=== PATIENT | male | born 1940 | race Caucasian/White ===

== ENCOUNTER 2018-07-16 11:02 | Inpatient (IN) ==
[2018-07-16] MEDS ORDERED: SODIUM CHLORIDE 0.9% 500 ML IV SCH (11:30)
[2018-07-16 11:41] LABS: Hematocrit (blood only) 25.6 % (42-52); Hemoglobin 7.7 g/dL (14.0-18.0); Mean Corpuscular Hgb Conc 30.1 g/dL (32-36); Mean Corpuscular Volume 104.9 fL (80-100); Mean Platelet Volume 9.8 fL (7.4-10.4); Nucleated RBC # (auto) 0.02 K/uL (0-0); Nucleated RBC % (auto) 0.1 %; Platelet Count 159 K/uL (130-400); RDW Coefficient of Variation 25.1 % (11.5-14.5); RDW Standard Deviation 94.9 fL (36.4-46.3); Red Blood Count 2.44 M/uL (4.7-6.1); White Blood Count 21.98 K/uL (4.8-10.8)
--- NOTE | 2018-07-16 11:48 | XRay Report ---
XR chest 1V portable CLINICAL HISTORY: 77 years-old Male presenting with weakness. TECHNIQUE: Portable upright AP view of the chest was obtained. COMPARISON: None. FINDINGS: Atherosclerosis of the aortic arch. Cardiac silhouette enlarged. Architectural distortion of the lung bases, right greater than left. Elevation of the right hemidiaphragm may be present. Extensive opaci ty at the right lung base with a suspected loculated small right pleural effusion. No large pneumotho rax. Prominent skin folds evident. Multiple right lateral rib fractures. Partially visualized lumbar fusion hardware. Upper abdomen normal. IMPRESSION: 1. Infiltrate at the right lung base with loculated right pleural effusion. Given the architectural distortion of the lung bases, right greater than left, this may be chronic. However, superimposed inf ection cannot be excluded. 2. Multiple right lateral rib fractures. Correlate for point tenderness to assess for acuity. Given the presence of these fractures, an acute setting the right pleural abnormality may represent extrapl eural hematoma or hemothorax. Electronically signed by: Efren Milton M.D. 07/16/2018 11:47 AM
[2018-07-16 11:58] LABS: Albumin Level 2.4 gm/dl (3.4-5.0); BUN Creatinine Ratio 22.9 (10-20); Calcium 8.6 mg/dl (8.5-10.1); Creatinine Clr Calc Pharmacy 28.4 ml/min; Est GFR (African American) 31.6; Est GFR (Non-African American) 27.3; Potassium 4.5 mmol/L (3.5-5.1)
--- NOTE | 2018-07-16 12:08 | CT Scan Report ---
CT head/brain wo con CT DOSE: 921.40 mGy.cm HISTORY: Mental status change fall TECHNIQUE: Multiaxial CT images of the head were performed without the use of intravenous contrast. A dose lowering technique was utilized adhering to the principles of ALARA. Comparison: 06/03/2018 Findings: The paranasal sinuses and mastoid air cells are clear. The calvarium and skull base are int act. The ventricles and sulci are within normal limits. There is no mass, hematoma, midline shift, or acute infarct. Age-related atrophy Impression: No acute intracranial abnormality. Age-related atrophy The above report was generated using voice recognition software. It may contain grammatical, syntax or spelling errors. Electronically signed by: Kentrell Frances M.D. 07/16/2018 12:07 PM
[2018-07-16 12:16] LABS: Albumin Globulin Ratio 0.7 (0.9-2); Bilirubin,Total 0.5 mg/dl (0.2-1); Globulin 3.5 gm/dl (2.5-4.0); Total Protein 5.9 gm/dl (6.4-8.2)
[2018-07-16 12:27] LABS: Anisocytosis Present; Immature Granulocytes % (auto) 0.5 %; Lymphocytes # (auto) 0.36 K/uL (1.2-3.4); Lymphocytes % (auto) 1.6 %; Macrocytosis Present; Monocytes # (auto) 0.91 K/uL (0.11-0.59); Monocytes % (auto) 4.1 %; Neutrophils # (auto) 20.61 K/uL (1.4-6.5); Neutrophils % (auto) 93.8 %; Spherocytes 1+
[2018-07-16 12:30] LABS: T4 Free Thyroxine 1.09 ng/dl (0.8-1.6)
[2018-07-16 12:49] LABS: Troponin I 0.059 ng/ml (0-0.045)
--- NOTE | 2018-07-16 14:21 | CT Scan Report ---
CT chest wo con CT DOSE: 236.89 mGy.cm CLINICAL HISTORY: 77 years-old Male with fall ? hematoma and rib fractures. Acute right-sided rib pa in status post fall with associated rib fractures. TECHNIQUE: Multiaxial CT images of the chest were performed without contrast. A dose lowering techni que was utilized adhering to the principles of ALARA. COMPARISON: Chest radiograph of same day FINDINGS: Study is limited without the use of contrast. A large thyroid nodule. Prominent paratrachea l lymph nodes measuring up to 9 mm, possibly physiologic. Moderate cardiomegaly. Coronary arterial an d aortic annular calcifications. Fusiform dilation about the ascending thoracic aorta, 4.2 x 4.2 cm. Calcification the thoracic aorta and proximal great vessels. Dilation of the main pulmonary artery me asures up to 3.4 cm transversely. Trace left and small to moderate right pleural effusions. The right-sided pleural fluid is predominan tly simple and only minimally loculated. There is a small right-sided pneumothorax with pleural separ ation of 9 mm at the apex. Pleural separation is also noted about the medial right lung and right betty g base. Left diaphragmatic elevation. Mixed bibasilar groundglass and consolidative opacities. Tree-i n-bud nodules of the left lung base. Mild emphysema. There are scattered nodular foci about the lung bases up to 6 mm within the lingula. Areas of subpleural reticulation of the right lung base with sub pleural consolidation containing calcifications noted within the right lower lobe measuring up to 3.9 x 2.3 cm suggestive of probable pleural parenchymal scarring with round atelectasis. 3 mm solid nodu le noted on the right on image 188 series 4. Central airways appear patent. Small volume of abdominal ascites. Diffuse body wall edema. Degenerative changes of the shoulders and spine. Multiple healed remote right-sided rib fractures. There is no acute fracture identified. 30% anterior endplate compression deformity of the T11 vertebral body without retropulsion, age-indetermi milton. Fusion hardware at T12 and L1 noted. Chronic appearing displaced mid sternal fracture. IMPRESSION: 1. Small right-sided pneumothorax of unknown etiology. 2. Multiple healed remote right-sided rib fractures with chronic appearing mid sternal fracture. No a cute rib fracture identified. 3. Fusiform dilation about the ascending thoracic aorta, 4.2 x 4.2 cm. 4. Trace left and small to moderate right pleural effusions. 5. Pleural parenchymal scarring of the right lung base with areas of suggested round atelectasis. Add itional bibasilar opacities are suggestive of probable pneumonitis with bronchiolitis. 6. There are a few scattered nodular foci as above measuring up to 6 mm within the lingula. 7. Mild emphysema. 8. Age-indeterminate 30% anterior endplate compression deformity of T11, likely chronic. 9. Additional findings as above. Please refer to below summary of Fleischner criteria recommendations for follow-up of incidental CT n odules ([place], Guidelines for management of small pulmonary nodules detected on CT scans: A sta tement from the Fleischner Society, Radiology 237: [phone].) SOLID NODULES Multiple nodules size: <6 mm * Low risk patients: no routine follow-up * high risk patients: optional CT at 12 months Note: newly detected indeterminate nodule in persons 35 years of age or older. * Low risk patients: minimal or absent history of smoking and/or other known risk factors * high risk patients: history of smoking or of other known risk factors (e.g. first degree relative with lung cancer, or exposure to asbestos, radon, uranium) * if a nodule up to 8 mm is partly solid or is ground glass further follow-up is required after 24 m onths to exclude possible slow growing adenocarcinoma (DEVIKA) The above report was generated using voice recognition software. It may contain grammatical, syntax o r spelling errors. Electronically signed by: Ruben Luna M.D. 07/16/2018 2:20 PM
[2018-07-16] MEDS ORDERED: cefTRIAXone SODIUM 1,000 MG/50 ML BAG IV STA (14:26)
[2018-07-16] MEDS ORDERED: LEVOFLOXACIN/D5W 750 MG/150 ML BAG IV SCH (14:30)
--- NOTE | 2018-07-16 14:54 | Emergency Department Note ---
Entered by Sania Howard acting as a scribe for History of Present Illness General Chief complaint: Illness Stated complaint: ILLNESS Source: patient History of Present Illness Provider complaint: fatigue, weakness Onset (ago): day(s) (recently) Location: left and right Pain Consistency: + constant Quality: + other (fatigue, weakness) Associated symptoms: + other (confusion, weight loss, reduced leg swelling. Denies: headache, chest pain, shortness of breath, cough, runny nose, abdominal pain, nausea, vomiting, diarrhea, dizziness, lightheadedness.) The patient is a 77 year old male who presents to the Emergency Room with complaints of constant fatigue and weakness beginning recently. He reports his home health nurse felt he needed to be seen in the ED as his vitals were "too low to get a reading." The patient denies headache, chest pain, shortness of breath, cough, runny nose, abdominal pain, nausea, vomiting, diarrhea, dizziness, or lightheadedness. He reports he just wants to go to sleep. His notes the patient has been confused recently, and was singing to himself and mumbling this morning. The patient has a history of heart failure and his reports he has been falling recently. She notes he has had weight loss and reduced leg swelling following an increase in his Lasix dose a couple weeks ago. The patient was taken off Coumadin a few months ago. Patient does admit to multiple falls with his last one being about 2 weeks ago where he broke several ribs in the right. Home Medications Home Medications Medication Instructions Recorded Confirmed Type Artificial Tears (PF) 1 - 2 drp OPHTHALMIC (EYE) UD 03/30/18 07/16/18 History aspirin [Aspirin Low Dose] 81 mg PO QAM 03/30/18 07/16/18 History atenolol 75 mg PO QAM 03/30/18 07/16/18 History calcitriol 0.25 mcg PO MONTHUR 03/30/18 07/16/18 History cholecalciferol (vitamin D3) 1,000 unit PO DAILY 03/30/18 07/16/18 History digoxin 62.5 mcg PO QAM 03/30/18 07/16/18 History levothyroxine 75 mcg PO QAM 03/30/18 07/16/18 History lisinopril 40 mg PO QAM 03/30/18 07/16/18 History methadone 10 mg PO Q6H PRN 03/30/18 07/16/18 History paroxetine HCl 30 mg PO QAM 03/30/18 07/16/18 History ranitidine HCl 150 mg PO QAM 03/30/18 07/16/18 History simvastatin 40 mg PO DAILY 03/30/18 07/16/18 History potassium chloride 10 meq PO DAILY #0 tab 04/01/18 07/16/18 Rx furosemide 80 mg PO QAM 07/16/18 07/16/18 History Allergies Allergy/AdvReac Type Severity Reaction Status Date / Time adhesive Allergy Unknown RASH AND Verified 07/16/18 11:44 BLISTER No Known Drug Allergies Allergy Unknown . Verified 07/16/18 11:44 Past Med/Surg History Medical History Hypertension History of pulmonary embolism A-fib Right-sided heart failure CAD (coronary artery disease) DVT (deep venous thrombosis) (Resolved) Bone cancer (Resolved) Anticoagulant long-term use (Chronic) Family History Other No significant family history Social History Preferred Language: Welsh Beliefs That Will Affect Care: None Current Living Situation: Spouse Feels Safe at Home: Yes Smoking Status: Never smoker Hx Alcohol Use: No Hx Substance Use: No Review of Systems See HPI for pertinent positives & negatives. and A total of 10 systems reviewed and were otherwise negative Physical Exam Vital Signs Vital Signs - 24 hr 07/16/18 11:10 07/16/18 11:24 07/16/18 12:02 Temperature 36.4 C L Temperature Source Oral Sepsis Recent Fever Within 48 Hours No Sepsis New/Unexplained Change in Mental Status No Sepsis Action Taken by Nursing No Action Required Pulse Rate 66 49 L Pulse Rate [Apical] 54 L Pulse Rate from SpO2 Sensor Respiratory Rate 20 16 12 Respiratory Effort / Characteristics Spontaneous Blood Pressure 87/52 L 107/52 L Blood Pressure [Left Arm] 103/59 L Blood Pressure Mean 63 70 Blood Pressure Mean [Left Arm] 73 Pulse Oximetry 99 Oxygen Delivery Method Room Air 07/16/18 12:16 07/16/18 12:24 07/16/18 12:30 Temperature Temperature Source Sepsis Recent Fever Within 48 Hours Sepsis New/Unexplained Change in Mental Status Sepsis Action Taken by Nursing Pulse Rate 50 L 49 L 54 L Pulse Rate [Apical] Pulse Rate from SpO2 Sensor Respiratory Rate 10 L 9 L 19 Respiratory Effort / Characteristics Blood Pressure 107/52 L 104/53 L 111/60 Blood Pressure [Left Arm] Blood Pressure Mean 70 70 77 Blood Pressure Mean [Left Arm] Pulse Oximetry Oxygen Delivery Method 07/16/18 12:33 07/16/18 13:00 07/16/18 13:30 Temperature Temperature Source Sepsis Recent Fever Within 48 Hours Sepsis New/Unexplained Change in Mental Status Sepsis Action Taken by Nursing Pulse Rate 49 L 45 L Pulse Rate [Apical] Pulse Rate from SpO2 Sensor 63 57 L Respiratory Rate 11 L 19 Respiratory Effort / Characteristics Blood Pressure 96/62 L 100/59 L Blood Pressure [Left Arm] Blood Pressure Mean 73 72 Blood Pressure Mean [Left Arm] Pulse Oximetry 98 99 94 Oxygen Delivery Method Room Air GENERAL: Cachectic, sitting up in bed, chronically ill-appearing, disheveled EYE EXAM: normal conjunctiva. OROPHARYNX: no exudate, no erythema, lips, buccal mucosa, and tongue normal and mucous membranes are moist NECK: supple, no nuchal rigidity, no adenopathy, non-tender LUNGS: Clear to auscultation. Normal chest wall mechanics HEART: no murmurs, S1 normal and S2 normal ABDOMEN: abdomen soft, non-tender, normo-active bowel, sounds, no masses, no janie ound or guarding. BACK: Back is symmetrical on inspection and there is no deformity, no midline tenderness, no CVA tenderness. SKIN: Multiple bruises on upper and lower extremities UPPER EXTREMITIES: upper extremities are grossly normal. LOWER EXTREMITIES: No pitting edema. NEURO EXAM: Normal sensorium, cranial nerves II-XII grossly intact, normal speech, no gross weakness of arms, no gross weakness of legs. Course ED COURSE: Vital signs were reviewed and showed hypotension. The patients medical record was reviewed The above diagnostic studies were performed and reviewed. ED treatments and interventions as stated above. 1115: The patient was evaluated in room B4B. A complete history and physical examination was performed. 1360: I reevaluated the patient and discussed his test results. His reports the patient fell two weeks ago and broke multiple ribs. 1431: I reviewed the patient's case with Leila Panda PA-C, [facility]. She will evaluate the patient for further management. 1436: I discussed the patient's case with Dr. Valle, [facility] thoracic surgery. 1437: Upon reevaluation, the patient is resting. I discussed my findings with the patient and his and they understand and agree with the treatment plan. Based on the patients age, coexisting illnesses, exam and lab findings the decision to treat as an inpatient was made. The patient remained stable while under my care. The patient will be evaluated for further management. Consultations Consultation #1: Leila Panda PA-C, [facility] Time: 14:31 Consultation #2: Dr. Valle, [facility] thoracic surgery. Time: 14:36 Administered Medications Discontinued Medications Sodium Chloride (Nss) 500 mls @ 999 mls/hr IV .Q31M TAMRA Stop: 07/16/18 12:00 Last Infusion: 07/16/18 12:10 Dose: 0 mls/hr Documented by: [id number] Admin: 07/16/18 11:39 Dose: 999 mls/hr Documented by: [id number] Medical Decision Making Differential Diagnosis Differential diagnosis includes but is not limited to dehydration, stroke, anemia, hypoglycemia, hyponatremia, hypernatremia, urinary tract infection, pneumonia, bronchitis, sepsis, gastroenteritis, additional abdominal pathology, metabolic abnormalities and infections. Medical Records Attestation: I reviewed the patient's medical records. Home Medications Current Medication List: was personally reviewed by me Laboratory Data Attestation: I reviewed the patient's lab results. Result diagrams: 07/16/18 11:30 07/16/18 11:30 Lab Results 07/16/18 07/16/18 Range/Units 11:30 11:30 WBC 21.98 H (4.8-10.8) K/uL RBC 2.44 L (4.7-6.1) M/uL Hgb 7.7 L (14.0-18.0) g/dL Hct 25.6 L (42-52) % MCV 104.9 H (80-100) fL MCH 31.6 (25-34) pg MCHC 30.1 L (32-36) g/dL RDW Std Deviation 94.9 H (36.4-46.3) fL RDW Coeff of Pedro Luis 25.1 H (11.5-14.5) % Plt Count 159 (130-400) K/uL MPV 9.8 (7.4-10.4) fL Immature Gran % (Auto) 0.5 % Neut % (Auto) 93.8 % Lymph % (Auto) 1.6 % Lyman % (Auto) 4.1 % Eos % (Auto) 0.0 % Baso % (Auto) 0.0 % Immature Gran # (Auto) 0.10 H (0.00-0.02) K/uL Neut # (Auto) 20.61 H (1.4-6.5) K/uL Lymph # (Auto) 0.36 L (1.2-3.4) K/uL Lyman # (Auto) 0.91 H (0.11-0.59) K/uL Eos # (Auto) 0.00 (0-0.5) K/uL Baso # (Auto) 0.00 (0-0.2) K/uL Absolute Nucleated RBC 0.02 H (0-0) K/uL Nucleated RBC % (auto) 0.1 % Anisocytosis Present Macrocytosis Present Spherocytes 1+ Sodium 146 H (136-145) mmol/L Potassium 4.5 (3.5-5.1) mmol/L Chloride 108 H (98-107) mmol/L Carbon Dioxide 32 (21-32) mmol/L Anion Gap 6.0 (3-11) BUN 52 H (7-18) mg/dl Creatinine 2.25 H (0.6-1.4) mg/dl Est Cr Clr Drug Dosing 28.4 ml/min Est GFR ( Amer) 31.6 Est GFR (Non-Af Amer) 27.3 BUN/Creatinine Ratio 22.9 H (10-20) Glucose 89 (70-99) mg/dl Calcium 8.6 (8.5-10.1) mg/dl Total Bilirubin 0.5 (0.2-1) mg/dl AST 40 H (15-37) U/L ALT 29 (12-78) U/L Alkaline Phosphatase 161 H (45-117) U/L Total Creatine Kinase 118 (39-308) U/L Troponin I 0.059 H* (0-0.045) ng/ml Total Protein 5.9 L (6.4-8.2) gm/dl Albumin 2.4 L (3.4-5.0) gm/dl Globulin 3.5 (2.5-4.0) gm/dl Albumin/Globulin Ratio 0.7 L (0.9-2) TSH 4.630 H (0.300-4.500) uIu/ml Free T4 1.09 (0.8-1.6) ng/dl Imaging Data Radiologist's Impression: Radiology results as stated below per my review and the radiologist's interpretation: CT chest wo con CT DOSE: 236.89 mGy.cm CLINICAL HISTORY: 77 years-old Male with fall ? hematoma and rib fractures. Acute right-sided rib pain status post fall with associated rib fractures. TECHNIQUE: Multiaxial CT images of the chest were performed without contrast. A dose lowering technique was utilized adhering to the principles of ALARA. COMPARISON: Chest radiograph of same day FINDINGS: Study is limited without the use of contrast. A large thyroid nodule. Prominent paratracheal lymph nodes measuring up to 9 mm, possibly physiologic. Moderate cardiomegaly. Coronary arterial and aortic annular calcifications. Fusiform dilation about the ascending thoracic aorta, 4.2 x 4.2 cm. Calcification the thoracic aorta and proximal great vessels. Dilation of the main pulmonary artery measures up to 3.4 cm transversely. Trace left and small to moderate right pleural effusions. The right-sided pleural fluid is predominantly simple and only minimally loculated. There is a small right-sided pneumothorax with pleural separation of 9 mm at the apex. Pl eural separation is also noted about the medial right lung and right lung base. Left diaphragmatic elevation. Mixed bibasilar groundglass and consolidative opacities. Tree-in-bud nodules of the left lung base. Mild emphysema. There are scattered nodular foci about the lung bases up to 6 mm within the lingula. Areas of subpleural reticulation of the right lung base with subpleural consolidation containing calcifications noted within the right lower lobe measuring up to 3.9 x 2.3 cm suggestive of probable pleural parenchymal scarring with round atelectasis. 3 mm solid nodule noted on the right on image 188 series 4. Central airways appear patent. Small volume of abdominal ascites. Diffuse body wall edema. Degenerative changes of the shoulders and spine. Multiple healed remote right-sided rib fractures. There is no acute fracture identified. 30% anterior endplate compression deformity of the T11 vertebral body without retropulsion, age-indeterminate. Fusion hardware at T12 and L1 noted. Chronic appearing displaced mid sternal fracture. IMPRESSION: 1. Small right-sided pneumothorax of unknown etiology. 2. Multiple healed remote right-sided rib fractures with chronic appearing mid sternal fracture. No acute rib fracture identified. 3. Fusiform dilation about the ascending thoracic aorta, 4.2 x 4.2 cm. 4. Trace left and small to moderate right pleural effusions. 5. Pleural parenchymal scarring of the right lung base with areas of suggested round atelectasis. Additional bibasilar opacities are suggestive of probable pneumonitis with bronchiolitis. 6. There are a few scattered nodular foci as above measuring up to 6 mm within the lingula. 7. Mild emphysema. 8. Age-indeterminate 30% anterior endplate compression deformity of T11, likely chronic. 9. Additional findings as above. Please refer to below summary of Fleischner criteria recommendations for follow- up of incidental CT nodules (Lubna Toribio, Guidelines for management of small pulmonary nodules detected on CT scans: A statement from the Fleischner Society, Radiology 237: [phone].) SOLID NODULES Multiple nodules size: <6 mm * Low risk patients: no routine follow-up * high risk patients: optional CT at 12 months Note: newly detected indeterminate nodule in persons 35 years of age or older. * Low risk patients: minimal or absent history of smoking and/or other known risk factors * high risk patients: history of smoking or of other known risk factors (e.g. first degree relative with lung cancer, or exposure to asbestos, radon, uranium) * if a nodule up to 8 mm is partly solid or is ground glass further follow-up is required after 24 months to exclude possible slow growing adenocarcinoma (DEVIKA) The above report was generated using voice recognition software. It may contain grammatical, syntax or spelling errors. Electronically signed by: Ruben Luna M.D. 07/16/2018 2:[address] head/brain wo con CT DOSE: 921.40 mGy.cm HISTORY: Mental status change fall TECHNIQUE: Multiaxial CT images of the head were performed without the use of intravenous contrast. A dose lowering technique was utilized adhering to the principles of ALARA. Comparison: 06/03/2018 Findings: The paranasal sinuses and mastoid air cells are clear. The calvarium and skull base are intact. The ventricles and sulci are within normal limits. There is no mass, hematoma, midline shift, or acute infarct. Age-related atrophy Impression: No acute intracranial abnormality. Age-related atrophy The above report was generated using voice recognition software. It may contain grammatical, syntax or spelling errors. Electronically signed by: Kentrell Frances M.D. 07/16/2018 12:07 PM XR chest 1V portable CLINICAL HISTORY: 77 years-old Male presenting with weakness. TECHNIQUE: Portable upright AP view of the chest was obtained. COMPARISON: None. FINDINGS: Atherosclerosis of the aortic arch. Cardiac silhouette enlarged. Architectural distortion of the lung bases, right greater than left. Elevation of the right hemidiaphragm may be present. Extensive opacity at the right lung base with a suspected loculated small right pleural effusion. No large pneumothorax. Prominent skin folds evident. Multiple right lateral rib fractures. Partially vi sualized lumbar fusion hardware. Upper abdomen normal. IMPRESSION: 1. Infiltrate at the right lung base with loculated right pleural effusion. Given the architectural distortion of the lung bases, right greater than left, this may be chronic. However, superimposed infection cannot be excluded. 2. Multiple right lateral rib fractures. Correlate for point tenderness to assess for acuity. Given the presence of these fractures, an acute setting the right pleural abnormality may represent extrapleural hematoma or hemothorax. Electronically signed by: Efren Milton M.D. 07/16/2018 11:47 AM ECG Data Attestation: I personally reviewed and interpreted this ECG as follows: Indication: weakness Rate (beats per minute): 54 Rhythm: atrial fibrillation Findings: + other (low voltage. ) and + RBBB; no PVC Blood Pressure Blood Pressure Findings: Low blood pressure Blood Pressure Disposition: further management by hospitalist AGNES Narrative Patient is a 77-year-old male who presents the ER for weakness associated with low blood pressure. Upon presentation systolic pressures are in the 80s. He is chronically ill-appearing. Labs were obtained and show a leukocytosis of 22,000. Hemoglobin was at 7.7 down from 9 upon review of his previous chart. BMP with hypernatremia and a creatinine 2.2 which consistent with previous. LFTs bilirubin was unremarkable. Troponin was detectable and fairly consistent with previous at 0.059. Patient was given a small bolus of IV fluids. Chest x- ray was reviewed. CT of the chest showed bilateral pleural effusions with old rib fractures and a small pneumothorax on the right. Patient was given IV Levaquin and Rocephin for pneumonitis coverage. Patient and family were updated bedside. Discussed case with thoracic medicine and the hospitalist and patient will be admitted for further workup. Impression & Plan Pneumonitis, CKD (chronic kidney disease), Symptomatic anemia, Hypernatremia, Leukocytosis, Pleural effusion, Acute pneumothorax Discharge Plan Visit Data Chief Complaint: Illness Stated Complaint: ILLNESS ED Provider: Denys Ames Discharge Problem: Pneumonitis, CKD (chronic kidney disease), Symptomatic anemia, Hypernatremia, Leukocytosis, Pleural effusion, Acute pneumothorax Patient Disposition: Being Evaluated by Hospitalist Forms Stand Alone Forms: My [facility] Prescriptions Prescriptions: No Action methadone 10 mg Tablet 10 mg PO Q6H PRN (Reason: Unknown) RF: 0 aspirin [Aspirin Low Dose] 81 mg Tablet,Delayed Release (Dr/Ec) 81 mg PO QAM RF: 0 simvastatin 40 mg tablet 40 mg PO DAILY RF: 0 levothyroxine 75 mcg tablet 75 mcg PO QAM RF: 0 paroxetine HCl 30 mg tablet 30 mg PO QAM RF: 0 ranitidine HCl 150 mg Tablet 150 mg PO QAM RF: 0 digoxin 125 mcg tablet 62.5 mcg PO QAM RF: 0 lisinopril 40 mg Tablet 40 mg PO QAM RF: 0 atenolol 50 mg tablet 75 mg PO QAM RF: 0 calcitriol 0.25 mcg capsule 0.25 mcg PO MONTHUR RF: 0 cholecalciferol (vitamin D3) 1,000 unit Capsule 1,000 unit PO DAILY RF: 0 Artificial Tears (PF) Dropperette 1 - 2 drp OPHTHALMIC (EYE) UD RF: 0 potassium chloride 10 mEq Tablet Extended Release 10 meq PO DAILY Qty: 0 RF: 0 furosemide 40 mg tablet 80 mg PO QAM RF: 0 Referrals Referrals: Bienvenido Marin MD [Primary Care Provider] - The scribe's documentation has been prepared under my direction and personally reviewed by me in its entirety. I confirm that the note above accurately reflects all work, treatment, procedures, and medical decision making performed by me.
[2018-07-16 15:31] LABS: Appearance Urine Clear (Clear); Bacteria Urine Automated Negative (Negative); Bilirubin Urine Negative (Negative); Blood Urine Negative (Negative); Color Urine Yellow; Epithelial Cell Urine Auto 0-5 /lpf (0-5); Glucose Urine UA Negative (Negative); Ketones Urine Negative (Negative); Leukocyte Esterase Urine Negative (Negative); Nitrite Urine Negative (Negative); Protein Urine 1+ (Negative); RBC Urine Automated 0-4 /hpf (0-4); Specific Gravity Urine 1.013 (1.000-1.030); Urobilinogen Urine Negative (Negative); WBC Urine Automated 0 /hpf (0-5)
--- NOTE | 2018-07-16 16:25 | History & Physical Report ---
Date of Service July 16, 2018 Assessment & Plan (1) Leukocytosis: (2) Pneumonitis: Pt presented to ER with c/o weakness, confusion, lethargy today. Had reported lower BP at home this morning. Pt denies SOB, cough. Hx fall on 07/01/18. WBC: 21, Lactate: 1.7, procalcitonin: 20. Negative influenza. Afebrile, P: 66, R: 20, BP: 87/52 up to 100/59, 94-99% on RA. CT Head: no acute changes CT CHEST: Pleural parenchymal scarring of the right lung base with areas of suggested round atelectasis. Additional bibasilar opacities are suggestive of probable pneumonitis with bronchiolitis. There are a few scattered nodular foci as above measuring up to 6 mm within the lingula. Mild emphysema. Possible sepsis -In ER received 500ml NSS, Rocephin 1Gm, Levaquin 750mg IV -urine culture pending -blood cultures pending -MRSA swab pending -zosyn, levaquin -monitor cbc (3) Anemia: History anemia of chronic disease. had Procrit on 07/13/18. Had PRBC transfusion in 03/2018, patient and family unsure if any more recent transfusions Today lethargic, weak Hgb: 7.7. Was 8.2 on 07/13/18, 7.8 on 07/03/18 and 7.2 on 07/01/18 -fecal occult pending -transfuse 2 units PRBCs with lasix between units -monitor H&H -may need to consider heme/onc consult (4) Pneumothorax: CT CHEST: Small right-sided pneumothorax of unknown etiology. Multiple healed remote right-sided rib fractures with chronic appearing mid sternal fracture. No acute rib fracture identified. Pt saturating well on room air -thoracic surgery consult, aware and recommend monitor for now (5) Weakness: Generalized weakness and lethargy today. No focal deficits on exam. CT Head: negative Suspect secondary to underlying infection and symptomatic anemia -transfuse PRBC as above -treat infection as above -PT/OT eval (6) Bradycardia: In ER pt noted pulse down in 40's then up to 50's -hold atenolol for am and monitor (7) History of fall: (8) Multiple fractures of ribs with routine healing: (9) Fracture of sternum with routine healing: Patient with history of multiple falls, last fall being on 07/01/18. At that point time he had right-sided rib pain and sternal pain. Had outpatient sternal x-ray on 06/29/18 which showed possible mid sternal fracture. Patient reports since has had decreased rib and sternal pain and is denying any pain today. -monitor (10) Elevated troponin: Troponin: 0.059. No CP or SOB, no acute EKG changes. Hx chronic elevated troponin at 0.05. May be secondary to CKD. -trend troponin -repeat EKG (11) Acute kidney injury superimposed on CKD: Cr: 2.2. Baseline 1.5-1.9 -Received 500ml NSS in ER -monitor renal functions -avoid nephrotoxic agents when possible -consult nephrology (12) A-fib: Chronic a-fib. Off anticoagulation secondary to risks outweighing benefits since 03/2018. Current bradycardia -will hold am atenolol and monitor closely (13) Right-sided heart failure: Chronic right sided heart failure Does not appear fluid overloaded at this time -hold lasix for now with low BPs -monitor I&Os (14) CAD (coronary artery disease): S/P CHARLEE LCx in 2006 -continue statin -will hold aspirin and reassess tomorrow with anemia -holding BB currently as above (15) Hypertension: Current low BPs -hold lisinopril (16) Hypothyroidism: -continue levothyroxine (17) Chronic back pain: -continue methadone (18) GARRETT (obstructive sleep apnea): -continue Bipap HS (19) GERD (gastroesophageal reflux disease): -continue H2 musa DVT Prophylaxis -SCDs for now with anemia DNR/DNI as per discussion with pt Follows with Dr Marin for routine care Pt was seen with Dr Peace. See addendum History of Present Illness Chief Complaint: weakness Primary Care Provider: Bienvenido Marin MD Pt is 77 y/o M with [facility] CAD s/p CHARLEE LCx in 2006, chronic right sided CHF, anemia of chronic disease, HTN, dyslipidemia, hypothryoidism, CKD III, multiple myeloma s/p chemo & radiation in 1991, atrial fibrillation off coumadin, h/o PE presented to ER with complaint of weakness, confusion, lethargy today. Patient with history of multiple falls, last fall being on 07/01/18. At that point time he had right-sided rib pain and sternal pain. Had outpatient sternal x-ray on 06/29/18 which showed possible mid sternal fracture. Patient reports since has had decreased rib and sternal pain and is denying any pain today. Home health, PT, OT have been following patient in his home. Patient reports had therapy today and it was noted that had low BP and was sent to ER. Pt having chronic wounds to bilateral legs and having wound care at home. Patient denies any dizziness, syncope, fever, chills. Denies any increased lower extremity edema. History anemia had Procrit on 07/13/18. Had PRBC transfusion in 03/2018, patient and family unsure if any more recent transfusions. Denies fever/chills, diaphoresis, N/V/D/C, ARGUETA, vision changes, neck pain, CP, SOB, orthopnea, palpitations, cough, sore throat, choking, otalgia, rhinorrhea, abdominal pain, p urinary symptoms, melena, hematochezia, epistaxis, hematuria. Allergies Allergy/AdvReac Type Severity Reaction Status Date / Time adhesive Allergy Unknown RASH AND Verified 07/16/18 11:44 BLISTER No Known Drug Allergies Allergy Unknown . Verified 07/16/18 11:44 Home Medications Home Medications Medication Instructions Recorded Confirmed Type Artificial Tears (PF) 1 - 2 drp OPHTHALMIC (EYE) UD 03/30/18 07/16/18 History aspirin [Aspirin Low Dose] 81 mg PO QAM 03/30/18 07/16/18 History atenolol 75 mg PO QAM 03/30/18 07/16/18 History calcitriol 0.25 mcg PO UD 03/30/18 07/16/18 History cholecalciferol (vitamin D3) 1,000 unit PO DAILY 03/30/18 07/16/18 History digoxin 62.5 mcg PO QAM 03/30/18 07/16/18 History levothyroxine 75 mcg PO QAM 03/30/18 07/16/18 History lisinopril 40 mg PO QAM 03/30/18 07/16/18 History methadone 5 mg PO BID 03/30/18 07/16/18 History paroxetine HCl 30 mg PO QAM 03/30/18 07/16/18 History ranitidine HCl 150 mg PO QAM 03/30/18 07/16/18 History simvastatin 40 mg PO DAILY 03/30/18 07/16/18 History furosemide 40 mg PO BID 07/16/18 07/16/18 History potassium chloride 10 meq PO BID 07/16/18 07/16/18 History Past Med/Surg History Medical History History of pulmonary embolism (Chronic) GERD (gastroesophageal reflux disease) (Chronic) Depression (Chronic) GARRETT (obstructive sleep apnea) (Chronic) Chronic back pain (Chronic) Hypothyroidism (Chronic) Multiple myeloma (Chronic) 1991 - chemo and radiation In remission CKD (chronic kidney disease), stage III (Chronic) Hypertension A-fib (Chronic) Right-sided heart failure (Chronic) CAD (coronary artery disease) (Chronic) DVT (deep venous thrombosis) (Resolved) Anticoagulant long-term use (Chronic) Surgical History H/O inguinal hernia repair (Chronic) History of cholecystectomy (Chronic) History of lumbar surgery (Chronic) Social History Preferred Language: Faroese Communication Ability: Effective Manufacturing Weaver Required: No Beliefs That Will Affect Care: Rastafari Current Living Situation: Spouse Other Information That Helps Us Care for You: No Feels Safe at Home: Yes Safety Concerns: Feels Safe At This Time Smoking Status: Former smoker Hx Alcohol Use: No Hx Substance Use: No Review of Systems All systems reviewed & are unremarkable except as noted in HPI & below Physical Exam Vital Signs (Past 24 Hours): Last Vital Signs Temp 36.4 C L 07/16/18 11:10 Pulse 55 L 07/16/18 16:00 Resp 15 07/16/18 16:00 BP 109/55 L 07/16/18 14:30 Pulse Ox 94 07/16/18 14:30 Physical Exam: General: chronic ill appearing, no acute distress Head: normocephalic, atraumatic Eyes: PERRL, EOM's intact, pale conjunctiva, anicteric ENT: normal inspection external ears, nose, mucous membranes moist Neck: supple, trachea midline, non-tender Lungs: clear, no respiratory distress, no wheezing/rhonchi/rales CV: irregularly irregular, no pretibial edema Abd: normal BS, soft, non-tender Ext: no cyanosis, no calf tenderness Neuro: A&O x 3, no focal deficits noted, normal affect Skin: warm, dry, pale, ulcers to bilateral lower legs Results & Data Laboratory Results Short CBC 04/11/19 Range/Units 11:30 WBC 21.98 H (4.8-10.8) K/uL Hgb 7.7 L (14.0-18.0) g/dL Hct 25.6 L (42-52) % Plt Count 159 (130-400) K/uL BMP 07/16/18 11:30 Sodium 146 H Potassium 4.5 Chloride 108 H Carbon Dioxide 32 BUN 52 H Creatinine 2.25 H Glucose 89 Calcium 8.6 Cardiac Enzymes 07/16/18 Range/Units 11:30 Total Creatine Kinase 118 (39-308) U/L Troponin I 0.059 H* (0-0.045) ng/ml Liver Function 07/16/18 Range/Units 11:30 Total Bilirubin 0.5 (0.2-1) mg/dl AST 40 H (15-37) U/L ALT 29 (12-78) U/L Alkaline Phosphatase 161 H (45-117) U/L Albumin 2.4 L (3.4-5.0) gm/dl Urine 07/16/18 Range/Units 15:12 Urine Color Yellow Urine Appearance Clear (Clear) Urine pH 7.0 (4.5-7.5) Ur Specific [place] 1.013 (1.000-1.030) Urine Protein 1+ H (Negative) Urine Glucose (UA) Negative (Negative) Diagnostic Findings CXR: IMPRESSION: 1. Infiltrate at the right lung base with loculated right pleural effusion. Given the architectural distortion of the lung bases, right greater than left, this may be chronic. However, superimposed infection cannot be excluded. 2. Multiple right lateral rib fractures. Correlate for point tenderness to assess for acuity. Given the presence of these fractures, an acute setting the right pleural abnormality may represent extrapleural hematoma or hemothorax. CT CHEST: IMPRESSION: 1. Small right-sided pneumothorax of unknown etiology. 2. Multiple healed remote right-sided rib fractures with chronic appearing mid sternal fracture. No acute rib fracture identified. 3. Fusiform dilation about the ascending thoracic aorta, 4.2 x 4.2 cm. 4. Trace left and small to moderate right pleural effusions. 5. Pleural parenchymal scarring of the right lung base with areas of suggested round atelectasis. Additional bibasilar opacities are suggestive of probable pneumonitis with bronchiolitis. 6. There are a few scattered nodular foci as above measuring up to 6 mm within the lingula. 7. Mild emphysema. 8. Age-indeterminate 30% anterior endplate compression deformity of T11, likely chronic. 9. Additional findings as above. CT HEAD: Impression: No acute intracranial abnormality. Age-related atrophy ECG Rate (beats per minute): 54 Rhythm: atrial fibrillation Findings: + RBBB Supervising Physician Co-Signing Physician Notes Care coordinated with Marcia WHITE. Agree with able note. Patient seen and examined. Please refer to her notes for full details. Vital signs reviewed. Physical exam: General exam: Alert and oriented. Not in acute distress. CVS: S1 and S2 heard, regular rate and rhythm, no murmurs. RS: Clear to auscultation, no wheezing or crackles. ABD: Soft, bowel sounds present, nontender, no distention. PRODUCT DEVELOPMENT TECHNICIAN: Nonfocal. EXT: no erythema. Labs: Reviewed. Assessment and plan: 77M presents with frequent falls, weakness with recent fall causing sternal fx and in Er was found to be hypotensive which improved with fluid bolus, Bradycardia, CT chest showing small pneumothorax and possible pneumonitis. Sepsis? hypotension, elevated WBC possible pneumonitis iv levaquin and zosyn follow cx monitor hemodynamics Small pneumothorax CT surgery aware. To observe Bradycardia Hx of Afib Holing atenolol- may be need to restart at lower dose' will monitor HTN Hypotensive on presentation holding atenlol and lisinopril will monitor Right sided Heart failure holding lasix will monitor for any volume overload HTN hol Other diagnosis and plan of care as per []. Nigel mercado MD. (1) Leukocytosis Leukocytosis type: unspecified Qualified Code(s): D72.829 - Elevated white blood cell count, unspecified
[2018-07-16 17:20] LABS: Influenza A virus by PCR Neg for Influ A (Neg); Influenza B virus by PCR Neg for Influ B (Neg)
[2018-07-16 17:45] LABS: INR 1.1 (0.9-1.1); Partial Thromboplastin Ratio 0.9; Partial Thromboplastin Time 25.1 Seconds (21.0-31.0); Prothrombin Time 11.5 Seconds (9.0-12.0)
[2018-07-16] MEDS ORDERED: CONSULT PHARMACY STA (18:45)
[2018-07-16] MEDS ORDERED: ACETAMINOPHEN 325 MG TAB PO PRN (18:45)
[2018-07-16] MEDS ORDERED: SODIUM CHLORIDE 0.9% 250 ML IV PRN (18:45)
[2018-07-16] MEDS ORDERED: PIPERACILL/TAZOBAC CONSULT ACTIVE PRN (19:27)
[2018-07-16] MEDS ORDERED: LEVOFLOXACIN CONSULT ACTIVE PRN (19:27)
[2018-07-16] MEDS ORDERED: PIPERACILLIN/TAZOBACTAM 3.375 GM in DEXTROSE 5% 100 ML IV ONE (20:00)
[2018-07-16] MEDS ORDERED: ARTIFICIAL TEARS OP PRN (20:00)
[2018-07-16] MEDS: METHADONE HCL 5 MG TAB PO SCH (21:07)
[2018-07-16] MEDS: POTASSIUM CHLORIDE 10 MEQ TABCR PO SCH (21:08)
[2018-07-16] MEDS ORDERED: FUROSEMIDE 40 MG in SYRINGE 0 ML IV ONE (22:00)
[2018-07-17] MEDS: PIPERACILLIN/TAZOBACTAM 3.375 GM in DEXTROSE 5% 100 ML IV SCH ×3 (02:28→18:31)
[2018-07-17] MEDS ORDERED: VANCOMYCIN CONSULT ACTIVE PRN ×2 (05:41→12:04)
[2018-07-17] MEDS: LEVOTHYROXINE SODIUM 75 MCG TABLET PO SCH (06:30)
[2018-07-17] MEDS ORDERED: VANCOMYCIN HCL 1,750 MG in SODIUM CHLORIDE 0.9% 500 ML IV ONE (06:30)
[2018-07-17 06:54] LABS: Basophils # (auto) 0.01 K/uL (0-0.2); Basophils % (auto) 0.1 %; Hematocrit (blood only) 33.1 % (42-52); Hemoglobin 10.4 g/dL (14.0-18.0); Immature Granulocytes # (auto) 0.03 K/uL (0.00-0.02); Immature Granulocytes % (auto) 0.2 %; Lymphocytes # (auto) 0.29 K/uL (1.2-3.4); Lymphocytes % (auto) 2.4 %; Mean Corpuscular Hgb Conc 31.4 g/dL (32-36); Mean Corpuscular Volume 100.6 fL (80-100); Mean Platelet Volume 9.7 fL (7.4-10.4); Monocytes # (auto) 0.57 K/uL (0.11-0.59); Monocytes % (auto) 4.7 %; Neutrophils # (auto) 11.29 K/uL (1.4-6.5); Neutrophils % (auto) 92.6 %; Nucleated RBC # (auto) 0.03 K/uL (0-0); Nucleated RBC % (auto) 0.2 %; Platelet Count 137 K/uL (130-400); RDW Coefficient of Variation 25.4 % (11.5-14.5); RDW Standard Deviation 88.2 fL (36.4-46.3); Red Blood Count 3.29 M/uL (4.7-6.1); White Blood Count 12.19 K/uL (4.8-10.8)
[2018-07-17 07:18] LABS: BUN Creatinine Ratio 23.5 (10-20); Calcium 8.4 mg/dl (8.5-10.1); Creatinine Clr Calc Pharmacy 28.8 ml/min; Est GFR (African American) 32.2; Est GFR (Non-African American) 27.8; Potassium 4.4 mmol/L (3.5-5.1)
[2018-07-17 07:36] LABS: Anisocytosis Present
[2018-07-17] MEDS: METHADONE HCL 5 MG TAB PO SCH ×2 (08:26→21:13)
[2018-07-17] MEDS: POTASSIUM CHLORIDE 10 MEQ TABCR PO SCH ×2 (08:27→21:14)
[2018-07-17] MEDS: PARoxetine HCl 10 MG TAB PO SCH (08:27)
[2018-07-17] MEDS: SIMVASTATIN 40 MG TAB PO SCH (08:27)
[2018-07-17] MEDS: CALCITRIOL 0.25 MCG CAPSULE PO SCH (08:27)
[2018-07-17] MEDS: CHOLECALCIFEROL 1,000 UNITS TAB PO SCH (08:27)
--- NOTE | 2018-07-17 11:49 | Infectious Disease Consult ---
Date of Consultation July 17, 2018 Assessment & Plan (1) Sepsis due to methicillin resistant Staphylococcus aureus: Doubt related to pulm source, suspect atelectasis due to rib fractures/sternal fracture. Suggest add vanco pending final cultures. If MSSA, can likely change to rocephin, suggest echo and repeat blood cultures.will follow. History of Present Illness Attending Physician: Dayanna Sheffield MD pt admitted after hotn noted at home. had recent fall at home. ct chest in ER revelaed healing right rib fractures and sternal fracture. pt states some pain in RUL, resolving, no cp, no pleuritic cp. no f/c at home. no cough. atelectasis noted on CT. Blood cultures done in Er, 2/2 sets growing gpc, pcr + S. aureus. no repeats. Currently deneis cough, sob, wheeze, cp. some pain in right ribs. no abd pain, no n/v/d. co gu symptoms. UA negative, culture pending. on zosyn and levaquin for ? pna. also received rocephin and vanco in Er. wbc initially 21, now 12. creat elevated at 2.2. currently comfortable, no complaints. Has multiple bruises on b/l arms and muliple superficial abrasions on arms and legs b/l. Denies pain or drainage. Allergies Allergy/AdvReac Type Severity Reaction Status Date / Time adhesive Allergy Unknown RASH AND Verified 07/16/18 11:44 BLISTER No Known Drug Allergies Allergy Unknown . Verified 07/16/18 11:44 Home Medications Home Medications Medication Instructions Recorded Confirmed Type Artificial Tears (PF) 1 - 2 drp OPHTHALMIC (EYE) UD 03/30/18 07/16/18 History aspirin [Aspirin Low Dose] 81 mg PO QAM 03/30/18 07/16/18 History atenolol 75 mg PO QAM 03/30/18 07/16/18 History calcitriol 0.25 mcg PO UD 03/30/18 07/16/18 History cholecalciferol (vitamin D3) 1,000 unit PO DAILY 03/30/18 07/16/18 History digoxin 62.5 mcg PO QAM 03/30/18 07/16/18 History levothyroxine 75 mcg PO QAM 03/30/18 07/16/18 History lisinopril 40 mg PO QAM 03/30/18 07/16/18 History methadone 5 mg PO BID 03/30/18 07/16/18 History paroxetine HCl 30 mg PO QAM 03/30/18 07/16/18 History ranitidine HCl 150 mg PO QAM 03/30/18 07/16/18 History simvastatin 40 mg PO DAILY 03/30/18 07/16/18 History furosemide 40 mg PO BID 07/16/18 07/16/18 History potassium chloride 10 meq PO BID 07/16/18 07/16/18 History Patient History Medical History History of pulmonary embolism (Chronic) GERD (gastroesophageal reflux disease) (Chronic) Depression (Chronic) GARRETT (obstructive sleep apnea) (Chronic) Chronic back pain (Chronic) Hypothyroidism (Chronic) Multiple myeloma (Chronic) 1991 - chemo and radiation In remission CKD (chronic kidney disease), stage III (Chronic) Hypertension A-fib (Chronic) Right-sided heart failure (Chronic) CAD (coronary artery disease) (Chronic) DVT (deep venous thrombosis) (Resolved) Anticoagulant long-term use (Chronic) Surgical History H/O inguinal hernia repair (Chronic) History of cholecystectomy (Chronic) History of lumbar surgery (Chronic) Family History Other Coronary heart disease Diabetes Hypertension Leukemia Social History Preferred Language: [place]ib[place]ian Communication Ability: Effective Mortuary Beautician Required: No Beliefs That Will Affect Care: Restoration Current Living Situation: Spouse Other Information That Helps Us Care for You: No Feels Safe at Home: Yes Safety Concerns: Feels Safe At This Time Smoking Status: Former smoker Hx Alcohol Use: No Hx Substance Use: No Review of Systems all remaining ros reviewed and are negative Physical Exam Vital Signs (Past 24 Hours): Last Vital Signs Temp 37.0 C 07/17/18 10:45 Pulse 63 07/17/18 10:45 Resp 19 07/17/18 10:45 BP 135/68 07/17/18 10:45 Pulse Ox 99 07/17/18 10:45 Constitutional: WD/WN, vitals as above Eyes: PERRL, conjunctivae normal, anicteric sclerae ENMT: external ear and nose normal, oropharynx normal Neck: normal visual inspection Respiratory: normal respiratory effort, lungs clear to auscultation Auscultation: + diminished lung sounds Cardiovascular: RRR, no murmur, no edema Gastrointestinal (Abdomen): normal bowel sounds, soft, nontender, no hepatosp lenomegaly Musculoskeletal: no cyanosis or clubbing, extremities motor strength 5/5 Skin: + lesion, + wound, + dry skin, + ecchymosis and + excoriations b/l calf superficial ulcerations, no surrounding warmth, erythema, edema, drainage, non tender Psychiatric: A+Ox3, euthymic affect Results & Data Laboratory Results Microbiology 07/16/18 15:09 Blood Blood Culture - Preliminary Gram positive cocci 07/16/18 15:12 Blood Blood Culture - Preliminary Gram positive cocci
--- NOTE | 2018-07-17 11:51 | Hospitalist Progress Note ---
Date of Service July 17, 2018 Assessment & Plan (1) Bacteremia: Present on admission with weakness, lethargy and confusion Elevated WBC and procalcitonin on admission Blood cx positive for gram positive cocci Received Levaquin and Rocephin in the ER Was starting on Vanco IV and Zosyn ID on board Currently on Zosyn, Levaquin and Vanco Will repeat blood cx later Will get an echo to r/o for vegetation Will d/c zosyn tonight Monitor CBC (2) Pneumonitis: CT CHEST showed Pleural parenchymal scarring of the right lung base with areas of suggested round atelectasis. bibasilar opacities are suggestive of probable pneumonitis with bronchiolitis. CXR showed Infiltrate at the right lung base with loculated right pleural effusion. Continue Levaquin for now Blood cx positive for gram positive cocci Continue monitor closely (3) Anemia: Hgb on admission 7.7 Received 2 unit PRBC Hgb 10.4 Monitor CBC (4) Pneumothorax: Multiple Rib fracture CT CHEST showed Small right-sided pneumothorax of unknown etiology.No acute rib fracture identified. Saturating well on room air Thoracic surgery on board (5) Weakness: Possible related to acute illness and anemia CT Head negative PT/OT Fall precaution (6) Bradycardia: HR has been stable Atenolol on hold Will consider to decrease (7) History of fall: (8) Multiple fractures of ribs with routine healing: (9) Fracture of sternum with routine healing: Patient with history of multiple falls, last fall being on 07/01/18. At that point time he had right-sided rib pain and sternal pain. Had outpatient sternal x-ray on 06/29/18 which showed possible mid sternal fracture. Patient reports since has had decreased rib and sternal pain and is denying any pain today. Stable Continue incentive spirometry Fall precaution (10) Elevated troponin: Mostly demand ischemia due to anemia in the setting of CKD Troponin trending down EKG showed no ischemic changes aspirin on hold due to low Hgb Atenolol on hold due to bradycardia (11) Acute kidney injury superimposed on CKD: Cr: 2.2. Baseline 1.5-1.9 Creatinine on admission 2.29, then 2.2 today Avoid nephrotoxic agents when possible Nephrology on board (12) A-fib: Chronic a-fib. Off anticoagulation secondary to risks outweighing benefits since 03/2018. Atenolol on hold due to bradycardia Will consider to decrease it in am (13) Right-sided heart failure: Chronic right sided heart failure Asymptomatic Lasix on hold due to elevated creatinine Continue monitor closely (14) CAD (coronary artery disease): S/P CHARLEE LCx in 2006 continue statin Aspirin and atenolol on hold Stable (15) Hypertension: BP stable Will resume lisinopril in am (16) Hypothyroidism: continue levothyroxine (17) Chronic back pain: continue methadone (18) GARRETT (obstructive sleep apnea): continue Bipap HS (19) GERD (gastroesophageal reflux disease): continue H2 musa DVT Prophylaxis SCDs due to low hgb CODE STATUS DNR/DNI Subjective Pt was seen and examined Lying in bed with no distress Pt said that he was very weak yesterday He said that he feels much better today He denies any chest pain, palpitation, dizziness Physical Exam Vital Signs (Past 24 Hours): Last Vital Signs Temp 37.0 C 07/17/18 10:45 Pulse 63 07/17/18 10:45 Resp 19 07/17/18 10:45 BP 135/68 07/17/18 10:45 Pulse Ox 99 07/17/18 10:45 Physical Exam: General- No acute distress Head- atraumatic Eyes- PERRL, EOMI, ENT- oropharynx clear Neck- supple, no JVD Lungs- Diminished BS Heart- irregular rhythm Abdomen- normal bowel sounds, soft Extremities- no calf tenderness Neuro- alert, oriented x 3; PERRL, EOMI; no facial palsy; no dysarthria Skin- warm & dry, multiple bruises
--- NOTE | 2018-07-17 15:31 | Consultation Report ---
DATE OF CONSULTATION: 07/17/2018 REASON FOR CONSULTATION: Rib fracture. HISTORY OF PRESENT ILLNESS: This is a very pleasant 77-year-old male I visited with in his hospital room. The patient was recently admitted to [facility] on 07/16/2018 secondary to pneumonia. The patient says that prior to admission, he came to the Emergency Department due to some lethargy as well as ongoing weakness. The patient presented to [facility] where he did undergo a CT scan of his head which showed no acute intracranial process. A chest x-ray was performed that showed a right lung basilar infiltrate with a loculated right pleural effusion. The patient also had a CT scan of his chest where the patient was noted to have a small right-sided pneumothorax and multiple healed right-sided rib fractures. He was also noted to have some dilation of his ascending aortic aneurysm. Trace left pleural effusion and a small right pleural effusion was noted. Right bibasilar opacities were noted suggestive of pneumonitis. We have been asked to see the patient due to the pneumothorax. I questioned the patient on numerous symptoms. He said that he has had several falls in the past, but did not prior to this admission. He denies any head injuries, visual changes, tinnitus, sore throat, or neck pain. He does not have any chest pain currently. He says he is not short of breath at rest. He does get somewhat winded with activity. He does not have any fevers, shakes or chills at this time. Denies abdominal pain, nausea, vomiting, diarrhea or dysuria. He does not report any anxiety or depression. At the time of my exam, he is resting comfortably in bed. PAST MEDICAL HISTORY: Includes the followin. Coronary artery disease. 2. History of CHF. 3. Anemia of chronic disease. 4. Hypertension. 5. Dyslipidemia. 6. Hypothyroidism. 7. Chronic kidney disease stage III. 8. Multiple myeloma. 9. Atrial fibrillation. 10. History of pulmonary emboli. PAST SURGICAL HISTORY: Includes: 1. History of inguinal herniorrhaphy. 2. Cholecystectomy. 3. Lumbar back surgery. SOCIAL HISTORY: He is a former smoker. He lives at home with his . FAMILY HISTORY: The patient is unsure if there was any premature coronary artery disease that runs in his family. ALLERGIES: HE HAS LISTED ALLERGIES TO ADHESIVES, BUT NO DRUG ALLERGIES. OUTPATIENT MEDICATIONS: Include: 1. Artificial Tears daily. 2. Aspirin 81 mg daily. 3. Atenolol 75 mg daily. 4. Calcitriol 0.25 mg daily. 5. Vitamin D3 1000 units daily. 6. Digoxin 62.5 mcg daily. 7. Lasix 40 mg twice daily. 8. Levothyroxine 75 mcg daily. 9. Lisinopril 40 mg daily. 10. Methadone 5 mg twice daily. 11. Paroxetine 30 mg daily. 12. Potassium chloride 10 mEq twice daily. 13. Ranitidine 150 mg daily. 14. Zocor 40 mg daily. REVIEW OF SYSTEMS: As noted above. PHYSICAL EXAMINATION: VITAL SIGNS: Blood pressure 135/68, pulse 63 and regular, respirations are 19 and nonlabored. He is afebrile with temperature of 37.0, pulse ox 99% on room air. SKIN: Warm with good turgor. GENERAL: He is alert to time, place and person at this time. HEENT: There are no signs of head injury. Eyes: Extraocular motions are intact. Ears: Auditory acuity is grossly intact. Nose: Nasal patency was intact. Sinuses are nontender. Mouth was moist without exudates. NECK: Supple without tracheal shift or stridor. CARDIOVASCULAR: Regular rate and rhythm. LUNGS: Revealed breath sounds were decreased at the bases. There were no rales, rhonchi, wheezing or use of accessory muscles noted. ABDOMEN: Soft and nontender. EXTREMITIES: Revealed that he had a hemosiderin deposition noted on his lower extremities bilaterally. NEUROLOGICAL: Revealed he could move all 4 extremities without noted focal deficits. DIAGNOSTIC DATA: Imaging is as described above. In addition, he has labs today where white blood cell count is 12.1. It is noteworthy to mention upon admission, it was 21.9. His hemoglobin and hematocrit are 10.4 and 33.1. His platelet count is within the normal range. Chemistry profile showed sodium is 146, potassium 4.4. His BUN and creatinine are 52 and 2.2. IMPRESSION: A 77-year-old male with a right-sided pneumothorax. PLAN: The right side pneumothorax is small. The patient is saturating 99% on room air and feels fine. I do not feel any active intervention will be needed regarding this. He is noted to have bilateral pleural effusions that are small in the left and somewhat larger on the right; however, pleural effusion on the right does appear to be small by CT scan. I think monitoring this with serial chest x-rays for the present time would be a prudent course of action, and if it becomes larger, we can consider doing a thoracentesis. The patient is currently being treated with antibiotics for his pneumonia by the infectious disease and primary service, which I agree with and we will continue to follow along with while he is in the hospital.
[2018-07-17] MEDS: DIGOXIN 0.125 MG TAB PO SCH (16:45)
--- NOTE | 2018-07-17 17:21 | Nephrology Consultation ---
Date of Consultation July 17, 2018 Assessment & Plan (1) Acute kidney injury superimposed on CKD: Patient with acute kidney injury likely in setting of sepsis. Creatinine of 2.2 which is slightly higher than his baseline. Baseline creatinine between 1.8-1.9. This could as well be progressive CKD. Urinalysis was bland. His electrolytes are stable and no signs of respiratory distress. No indication for dialysis at this point. Recommend monitoring renal function with daily BMP. Agree with holding Lasix but will need to reassess volume status daily. Monitor input output. Avoid supratherapeutic vancomycin levels as can be nephrotoxic (2) Sepsis due to methicillin resistant Staphylococcus aureus: Patient is receiving vancomycin per infectious disease and primary team. He received Levaquin and ceftriaxone in the emergency room. Renally dose all medications for current GFR. (3) Hypertension: Blood pressure is better now. Avoid hypotension. Consider resuming Lasix if blood pressure is remained stable in the next day or 2 History of Present Illness Reason for Consultation: KATELYN on CKD Requesting Physician: Kobi Manning MD Attending Physician: Dayanna Sheffield MD History of Present Illness Pt is 77 y/o M with PMH CAD s/p CHARLEE LCx in 2006, chronic right sided CHF, anemia of chronic disease, HTN, dyslipidemia, hypothryoidism, CKD III, multiple myeloma s/p chemo & radiation in 1991, atrial fibrillation off coumadin, who was admitted on 07/16/2018 with weakness and confusion. He was found to have creatinine of 2.2. I have been asked to evaluate him for worsening renal function. His baseline creatinine is between 1.5-1.9. He was also admitted in March 2018 with acute kidney injury on CKD. Patient with multiple falls in the recent past and suspected sternal fracture. He reports feeling weak and tired at home. He was found to be hypertensive during home visit and sent to the emergency room. He denies any urinary symptoms. No NSAID use. He was started on broad-spectrum antibiotics. Blood cultures are growing gram-positive cocci. His creatinine is remaining stable at 2.2 today. He denied any nausea vomiting or diarrhea. Allergies Allergy/AdvReac Type Severity Reaction Status Date / Time adhesive Allergy Unknown RASH AND Verified 07/16/18 11:44 BLISTER No Known Drug Allergies Allergy Unknown . Verified 07/16/18 11:44 Home Medications Home Medications Medication Instructions Recorded Confirmed Type Artificial Tears (PF) 1 - 2 drp OPHTHALMIC (EYE) UD 03/30/18 07/16/18 History aspirin [Aspirin Low Dose] 81 mg PO QAM 03/30/18 07/16/18 History atenolol 75 mg PO QAM 03/30/18 07/16/18 History calcitriol 0.25 mcg PO UD 03/30/18 07/16/18 History cholecalciferol (vitamin D3) 1,000 unit PO DAILY 03/30/18 07/16/18 History digoxin 62.5 mcg PO QAM 03/30/18 07/16/18 History levothyroxine 75 mcg PO QAM 03/30/18 07/16/18 History lisinopril 40 mg PO QAM 03/30/18 07/16/18 History methadone 5 mg PO BID 03/30/18 07/16/18 History paroxetine HCl 30 mg PO QAM 03/30/18 07/16/18 History ranitidine HCl 150 mg PO QAM 03/30/18 07/16/18 History simvastatin 40 mg PO DAILY 03/30/18 07/16/18 History furosemide 40 mg PO BID 07/16/18 07/16/18 History potassium chloride 10 meq PO BID 07/16/18 07/16/18 History Patient History Medical History History of pulmonary embolism (Chronic) GERD (gastroesophageal reflux disease) (Chronic) Depression (Chronic) GARRETT (obstructive sleep apnea) (Chronic) Chronic back pain (Chronic) Hypothyroidism (Chronic) Multiple myeloma (Chronic) 1991 - chemo and radiation In remission CKD (chronic kidney disease), stage III (Chronic) Hypertension A-fib (Chronic) Right-sided heart failure (Chronic) CAD (coronary artery disease) (Chronic) DVT (deep venous thrombosis) (Resolved) Anticoagulant long-term use (Chronic) Surgical History H/O inguinal hernia repair (Chronic) History of cholecystectomy (Chronic) History of lumbar surgery (Chronic) Family History Other Coronary heart disease Diabetes Hypertension Leukemia Social History Preferred Language: [place] Communication Ability: Effective White Lead Filterer Required: No Beliefs That Will Affect Care: Worship marital status: Current Living Situation: Spouse Other Information That Helps Us Care for You: No Feels Safe at Home: Yes Safety Concerns: Feels Safe At This Time Smoking Status: Former smoker Hx Alcohol Use: No Hx Substance Use: No Review of Systems All other systems were reviewed and negative except as noted in HPI Physical Exam Vital Signs (Past 24 Hours): Last Vital Signs Temp 36.8 C 07/17/18 15:30 Pulse 68 07/17/18 15:30 Resp 20 07/17/18 15:30 BP 152/80 H 07/17/18 15:30 Pulse Ox 92 07/17/18 15:30 Physical Exam: General exam: Appears comfortable, no acute distress HEENT: Pupils are equal and reactive to light Neck: No JVD, neck is supple trachea is midline Respiratory system: Clear breath sounds bilaterally. Gastrointestinal: Abdomen is soft, non distended, non tender, bowel sounds are present CVS: Regular rate and rhythm. No murmurs, rubs or gallops Musculoskeletal: No joint or muscle tenderness Extremities: Non tender, 1+ edema, peripheral pulses are present Neuro: Oriented, no tremors, no focal neurological deficits Skin: Hyperpigmented skin on the legs. Few open areas on the legs. Results & Data Laboratory Results Sodium 146, potassium 4.4, BUN 52, creatinine 2.2, hemoglobin 10.4, WBC 12
--- NOTE | 2018-07-17 17:58 | Consultation Report ---
DATE OF CONSULTATION: 07/17/2018 REASON FOR CONSULTATION: Right pneumothorax. HISTORY OF PRESENT ILLNESS: Mr. Mejia is a 77-year-old male who suffered a rib fracture in the past. He denies any chest pain now. He denies any recent trauma. He does get a bit winded and a CT scan was obtained which showed several old rib fractures and he also has a very small apical pneumothorax. I do not believe this is clinically evident but I think we should keep an eye on it. I am a little concerned about a pleural effusion and the localized infiltrates in his right lower lobe. He does have a history of coronary artery disease with congestive heart failure. He is also a former smoker. Nothing is going to have to be done with this pneumothorax; however, we will follow along with him and I am a bit concerned about his pleural effusion, although I think it is too small to drain now. I would like to make sure these processes in his right chest clear up.
[2018-07-18] MEDS: PIPERACILLIN/TAZOBACTAM 3.375 GM in DEXTROSE 5% 100 ML IV SCH ×3 (01:51→19:11)
[2018-07-18] MEDS ORDERED: VANCOMYCIN HCL 1,000 MG in SODIUM CHLORIDE 0.9% 250 ML IV SCH (06:00)
[2018-07-18] MEDS: cefTRIAXone SODIUM 2,000 MG in DEXTROSE 5% 50 ML IV SCH (06:03)
[2018-07-18] MEDS: LEVOTHYROXINE SODIUM 75 MCG TABLET PO SCH (06:07)
--- NOTE | 2018-07-18 07:19 | XRay Report ---
SINGLE VIEW CHEST CLINICAL HISTORY: Pneumothorax. FINDINGS: An AP, portable, upright chest radiograph is compared to chest x-ray and chest CT dated 07/06. The examination is degraded by portable technique and patient rotation. The heart is enlarge d and there is atherosclerotic calcification of the thoracic aorta. The pulmonary vasculature is nonc ongested. Emphysema is again noted. Mild loss in the right lung is again noted. There are right large r than left pleural effusions with bibasilar consolidation. No pneumothorax is seen. The skeletal str uctures are osteopenic. There are numerous healed right-sided rib fractures. IMPRESSION: 1. No pneumothorax is identified. The trace pneumothorax seen on the 07/16/[address] is not appare nt by x-ray. 2. Cardiomegaly, emphysema, and volume loss in the right lung are similar to previous. 3. There are right larger left pleural effusions with bibasilar consolidation. This is also unchanged . Electronically signed by: Vance Novoa M.D. 07/18/2018 7:17 AM
[2018-07-18 07:45] LABS: Hematocrit (blood only) 32.4 % (42-52); Hemoglobin 10.3 g/dL (14.0-18.0); Mean Corpuscular Hgb Conc 31.8 g/dL (32-36); Mean Corpuscular Volume 100.6 fL (80-100); Mean Platelet Volume 9.8 fL (7.4-10.4); Platelet Count 118 K/uL (130-400); RDW Coefficient of Variation 24.3 % (11.5-14.5); RDW Standard Deviation 86.8 fL (36.4-46.3); Red Blood Count 3.22 M/uL (4.7-6.1); White Blood Count 8.48 K/uL (4.8-10.8)
[2018-07-18 07:53] LABS: BUN Creatinine Ratio 25.9 (10-20); Calcium 8.5 mg/dl (8.5-10.1); Est GFR (African American) 36.5; Est GFR (Non-African American) 31.5
[2018-07-18] MEDS: CHOLECALCIFEROL 1,000 UNITS TAB PO SCH (08:07)
[2018-07-18] MEDS: POTASSIUM CHLORIDE 10 MEQ TABCR PO SCH ×2 (08:15→20:45)
[2018-07-18] MEDS: SIMVASTATIN 40 MG TAB PO SCH (08:15)
[2018-07-18] MEDS: METHADONE HCL 5 MG TAB PO SCH ×2 (08:15→20:45)
[2018-07-18] MEDS: PARoxetine HCl 10 MG TAB PO SCH (08:15)
--- NOTE | 2018-07-18 15:02 | Surgery Progress Note ---
Date of Service July 18, 2018 Assessment & Plan (1) Pneumothorax: -this was noted on admission CT scan -this is not evident on today's CXR -pt. may have a small loculated pleural effusion -continue treatment for underlying pneumonia -will continue to follow while in hospital and plan on a repeat CT scan following discharge Subjective Pt. state his breathing feels good and not labored. Physical Exam Vital Signs (Past 24 Hours): Last Vital Signs Temp 36.9 C 07/18/18 12:00 Pulse 87 07/18/18 12:00 Resp 18 07/18/18 12:00 BP 110/71 07/18/18 12:00 Pulse Ox 99 07/18/18 12:00 Constitutional: no acute distress Respiratory: no respiratory distress and no labored breathing BS are decreased at bases R>L
[2018-07-18] MEDS ORDERED: LEVOFLOXACIN/D5W 750 MG/150 ML BAG IV SCH (16:00)
[2018-07-18] MEDS: DIGOXIN 0.125 MG TAB PO SCH (17:35)
--- NOTE | 2018-07-18 19:14 | Hospitalist Progress Note ---
Date of Service July 18, 2018 Assessment & Plan (1) Bacteremia: Present on admission with weakness, lethargy and confusion Elevated WBC and procalcitonin on admission Blood cx positive for gram positive cocci Received Levaquin and Rocephin in the ER Was starting on Vanco IV and Zosyn ID on board Repeat blood cx growth gram positive cocci Case discussed with ID recommended to continue Rocephin and Zosyn Will d/c levaquin Will repeat 3rd set blood cx ECHO showed no evidence for vegetation Continue monitor (2) Pneumonitis: CT CHEST showed Pleural parenchymal scarring of the right lung base with areas of suggested round atelectasis. bibasilar opacities are suggestive of probable pneumonitis with bronchiolitis. CXR showed Infiltrate at the right lung base with loculated right pleural effusion. Continue Levaquin for now Blood cx positive for gram positive cocci Continue monitor closely (3) Anemia: Hgb on admission 7.7 Received 2 unit PRBC Hgb 10.4 Monitor CBC (4) Pneumothorax: Multiple Rib fracture CT CHEST showed Small right-sided pneumothorax of unknown etiology.No acute rib fracture identified. Saturating well on room air Thoracic surgery on board (5) Weakness: Possible related to acute illness and anemia CT Head negative PT/OT Fall precaution (6) Bradycardia: HR has been stable Atenolol on hold Will consider to decrease (7) History of fall: (8) Multiple fractures of ribs with routine healing: (9) Fracture of sternum with routine healing: Patient with history of multiple falls, last fall being on 07/01/18. At that point time he had right-sided rib pain and sternal pain. Had outpatient sternal x-ray on 06/29/18 which showed possible mid sternal fracture. Patient reports since has had decreased rib and sternal pain and is denying any pain today. Stable Continue incentive spirometry Fall precaution (10) Elevated troponin: Mostly demand ischemia due to anemia in the setting of CKD Troponin trending down EKG showed no ischemic changes aspirin on hold due to low Hgb Atenolol on hold due to bradycardia (11) Acute kidney injury superimposed on CKD: Cr: 2.2. Baseline 1.5-1.9 Creatinine on admission 2.29, then 2.2 today Avoid nephrotoxic agents when possible Nephrology on board (12) A-fib: Chronic a-fib. Off anticoagulation secondary to risks outweighing benefits since 03/2018. Atenolol on hold due to bradycardia Will consider to decrease it in am (13) Right-sided heart failure: Chronic right sided heart failure Asymptomatic Lasix on hold due to elevated creatinine Continue monitor closely (14) CAD (coronary artery disease): S/P CHARLEE LCx in 2006 continue statin Aspirin and atenolol on hold Stable (15) Hypertension: BP stable Will resume lisinopril in am (16) Hypothyroidism: continue levothyroxine (17) Chronic back pain: continue methadone (18) GARRETT (obstructive sleep apnea): continue Bipap HS Confusion possible related to metabolic encephalopathy CT head showed no acute intracranial abnormality. Age-related atrophy Stable (19) GERD (gastroesophageal reflux disease): continue H2 musa DVT Prophylaxis SCDs due to low hgb CODE STATUS DNR/DNI Subjective Pt was seen and examined Sitting in chair with no distress Pt said that he feels fine Denies any chest pain, palpitation, dizziness and SOB Physical Exam Vital Signs (Past 24 Hours): Last Vital Signs Temp 36.5 C 07/18/18 15:07 Pulse 80 07/18/18 17:35 Resp 20 07/18/18 15:07 BP 151/83 H 07/18/18 15:07 Pulse Ox 100 07/18/18 15:07 Physical Exam: General- No acute distress Head- atraumatic Eyes- PERRL, EOMI, ENT- oropharynx clear Neck- supple, no JVD Lungs- Diminished BS Heart- irregular rhythm Abdomen- normal bowel sounds, soft Extremities- no calf tenderness Neuro- alert, oriented x 3; PERRL, EOMI; no facial palsy; no dysarthria Skin- warm & dry, multiple bruises
[2018-07-19] MEDS: PIPERACILLIN/TAZOBACTAM 3.375 GM in DEXTROSE 5% 100 ML IV SCH ×3 (02:00→17:55)
[2018-07-19] MEDS: LEVOTHYROXINE SODIUM 75 MCG TABLET PO SCH (05:50)
[2018-07-19] MEDS: cefTRIAXone SODIUM 2,000 MG in DEXTROSE 5% 50 ML IV SCH (05:50)
[2018-07-19 07:35] LABS: BUN Creatinine Ratio 26.1 (10-20); Calcium 8.2 mg/dl (8.5-10.1); Creatinine Clr Calc Pharmacy 38.8 ml/min; Est GFR (Non-African American) 39.7; Potassium 3.5 mmol/L (3.5-5.1)
--- NOTE | 2018-07-19 07:48 | Surgery Progress Note ---
Date of Service July 19, 2018 Assessment & Plan (1) Pneumothorax: -this was noted on admission CT scan -pt. may have a small loculated pleural effusion -continue treatment for underlying pneumonia -plan on a repeat CT 1-2 weeks following discharge Subjective Pt. states "I feel good and I feel fine." Physical Exam Vital Signs (Past 24 Hours): Last Vital Signs Temp 36.8 C 07/19/18 07:00 Pulse 80 07/19/18 07:00 Resp 18 07/19/18 07:00 BP 115/69 07/19/18 07:00 Pulse Ox 90 07/19/18 07:00 Constitutional: no acute distress Respiratory: no respiratory distress and no labored breathing
[2018-07-19] MEDS: CHOLECALCIFEROL 1,000 UNITS TAB PO SCH (08:22)
[2018-07-19] MEDS: PARoxetine HCl 10 MG TAB PO SCH (08:22)
[2018-07-19] MEDS: METHADONE HCL 5 MG TAB PO SCH ×2 (08:22→20:08)
[2018-07-19] MEDS: POTASSIUM CHLORIDE 10 MEQ TABCR PO SCH ×2 (08:23→20:08)
[2018-07-19] MEDS: SIMVASTATIN 40 MG TAB PO SCH (08:23)
--- NOTE | 2018-07-19 15:19 | Hospitalist Progress Note ---
Date of Service July 19, 2018 Assessment & Plan (1) Bacteremia: Present on admission with weakness, lethargy and confusion Elevated WBC and procalcitonin on admission Blood cx positive for gram positive cocci Received Levaquin and Rocephin in the ER Was starting on Vanco IV and Zosyn ID on board Repeat blood cx growth gram positive cocci Case discussed with ID yesterday recommended to continue Rocephin and Zosyn All 3 set of blood cx positive for gram positive cocci ECHO showed no evidence for vegetation Will discussed with thoracic surgery about the loculated pleural effusion since blood cx remind positive Will repeat a 4th sets of blood cx (2) Pneumonitis: CT CHEST showed Pleural parenchymal scarring of the right lung base with areas of suggested round atelectasis. bibasilar opacities are suggestive of probable pneumonitis with bronchiolitis. CXR showed Infiltrate at the right lung base with loculated right pleural effusion. Continue Levaquin for now Blood cx positive for gram positive cocci Continue monitor closely (3) Anemia: Hgb on admission 7.7 Received 2 unit PRBC Hgb 10.4 Monitor CBC (4) Pneumothorax: Multiple Rib fracture CT CHEST showed Small right-sided pneumothorax of unknown etiology.No acute rib fracture identified. Saturating well on room air Thoracic surgery on board (5) Weakness: Possible related to acute illness and anemia CT Head negative PT/OT Fall precaution (6) Bradycardia: HR has been stable Atenolol on hold Will consider to decrease (7) History of fall: (8) Multiple fractures of ribs with routine healing: (9) Fracture of sternum with routine healing: Patient with history of multiple falls, last fall being on 07/01/18. At that point time he had right-sided rib pain and sternal pain. Had outpatient sternal x-ray on 06/29/18 which showed possible mid sternal fracture. Patient reports since has had decreased rib and sternal pain and is denying any pain today. Stable Continue incentive spirometry Fall precaution (10) Elevated troponin: Mostly demand ischemia due to anemia in the setting of CKD Troponin trending down EKG showed no ischemic changes aspirin on hold due to low Hgb Atenolol on hold due to bradycardia (11) Acute kidney injury superimposed on CKD: Cr: 2.2. Baseline 1.5-1.9 Creatinine on admission 2.29, then 1.6 today Avoid nephrotoxic agents when possible Nephrology on board (12) A-fib: Chronic a-fib. Off anticoagulation secondary to risks outweighing benefits since 03/2018. Atenolol on hold due to bradycardia Will check digoxin level and possible decrease it (13) Right-sided heart failure: Chronic right sided heart failure Asymptomatic Lasix on hold due to elevated creatinine Continue monitor closely (14) CAD (coronary artery disease): S/P CHARLEE LCx in 2006 continue statin Aspirin and atenolol on hold Stable (15) Hypertension: BP stable Will resume lisinopril in am (16) Hypothyroidism: continue levothyroxine (17) Chronic back pain: continue methadone (18) GARRETT (obstructive sleep apnea): continue Bipap HS Confusion possible related to metabolic encephalopathy CT head showed no acute intracranial abnormality. Age-related atrophy Stable (19) GERD (gastroesophageal reflux disease): continue H2 musa DVT Prophylaxis SCDs due to low hgb CODE STATUS DNR/DNI Subjective Pt was seen and examined Lying in bed with no distress Updates provided to the Pt said that he feels fine Denies any chest pain, palpitation and SOB Physical Exam Vital Signs (Past 24 Hours): Last Vital Signs Temp 37.1 C 07/19/18 14:49 Pulse 53 L 07/19/18 14:49 Resp 22 07/19/18 14:49 BP 136/70 07/19/18 14:49 Pulse Ox 91 07/19/18 14:49 Physical Exam: General- No acute distress Head- atraumatic Eyes- PERRL, EOMI, ENT- oropharynx clear Neck- supple, no JVD Lungs- Diminished BS Heart- irregular rhythm Abdomen- normal bowel sounds, soft Extremities- no calf tenderness Neuro- alert, oriented x 3; PERRL, EOMI; no facial palsy; no dysarthria Skin- warm & dry, multiple bruises
[2018-07-19] MEDS: DIGOXIN 0.125 MG TAB PO SCH (16:36)
[2018-07-20] MEDS: PIPERACILLIN/TAZOBACTAM 3.375 GM in DEXTROSE 5% 100 ML IV SCH ×2 (02:13→10:10)
[2018-07-20 06:07] LABS: Hemoglobin 9.5 g/dL (14.0-18.0); Mean Corpuscular Hgb Conc 31.7 g/dL (32-36); Mean Corpuscular Volume 99.3 fL (80-100); RDW Coefficient of Variation 23.3 % (11.5-14.5); RDW Standard Deviation 82.6 fL (36.4-46.3); Red Blood Count 3.02 M/uL (4.7-6.1); White Blood Count 5.34 K/uL (4.8-10.8)
[2018-07-20] MEDS: cefTRIAXone SODIUM 2,000 MG in DEXTROSE 5% 50 ML IV SCH (06:20)
[2018-07-20] MEDS: LEVOTHYROXINE SODIUM 75 MCG TABLET PO SCH (06:21)
[2018-07-20 06:26] LABS: Calcium 8.3 mg/dl (8.5-10.1); Creatinine Clr Calc Pharmacy 42.4 ml/min; Est GFR (African American) 51.3; Est GFR (Non-African American) 44.2; Potassium 3.3 mmol/L (3.5-5.1)
[2018-07-20 06:35] LABS: Mean Platelet Volume 9.8 fL (7.4-10.4); Platelet Count 95 K/uL (130-400); Platelet Estimate Decreased (Normal)
--- NOTE | 2018-07-20 07:04 | Nephrology Progress Note ---
Date of Service July 20, 2018 Assessment & Plan (1) Acute kidney injury superimposed on CKD: Patient with acute kidney injury likely multifactorial ATN in setting of MSSA septicemia. Creatinine of 2.3 on presentation on 07/16 w/ progressive improvement to 1.5 today. Baseline creatinine between 1.8-1.9. Urinalysis was bland. No signs of respiratory distress. pt no longer on vanco -some electrolyte issues >> hypernatremia, hypokalemia both mild >>>increased K supplements to 20 mEq bid for now -cont daily bmp -will give 500 mL 1/2 NS w/ 40 mEq/L K >> lowered to 250 mL IVF -cont to hold lasix -recommend keep I = O -recommend daily bmp -will sign off; pls call if ? Subjective seen on rounds this am 0815; feeling a bit improved in term sof breathing; eating some. no abd pain , no f; edema ok; denies voidign concerns. ongoing mssa bacteremia >> pulm got thoracentesis today Physical Exam Vital Signs (Past 24 Hours): Last Vital Signs Temp 36.9 C 07/20/18 04:59 Pulse 60 07/20/18 04:59 Resp 18 07/20/18 04:59 BP 111/75 07/20/18 04:59 Pulse Ox 96 07/20/18 04:59 Constitutional: well developed and + cachectic on RA, weak Eyes: EOM intact bilaterally ENMT: Ears: no external ear abnormality Nose: no external nose abnormality Mouth: + dry oral mucous membranes Neck: no nuchal rigidity Respiratory: normal respiratory effort Auscultation: + diminished lung sounds and + crackles (bibasilar) Cardiovascular: Rate/Rhythm: regular rate and regular rhythm Extremities: + edema (trace) Gastrointestinal (Abdomen): Inspection/Auscultation: normal bowel sounds Percussion/Palpation: abdomen soft; abdomen nontender Musculoskeletal: Extremities: strength 5/5 throughout Skin: no rashes, warm and dry Neurologic: hubbard, fluent speech, no tremor Results & Data Laboratory Results Abnormal lab results 07/19/18 07/20/18 07/20/18 Range/Units 06:57 05:46 05:46 RBC 3.02 L (4.7-6.1) M/uL Hgb 9.5 L (14.0-18.0) g/dL Hct 30.0 L (42-52) % MCHC 31.7 L (32-36) g/dL RDW Std Deviation 82.6 H (36.4-46.3) fL RDW Coeff of Pedro Luis 23.3 H (11.5-14.5) % Plt Count 95 L (130-400) K/uL Sodium 147 H 147 H (136-145) mmol/L Potassium 3.3 L (3.5-5.1) mmol/L Chloride 110 H 111 H (98-107) mmol/L Carbon Dioxide 33 H (21-32) mmol/L BUN 43 H 35 H (7-18) mg/dl Creatinine 1.65 H D 1.51 H (0.6-1.4) mg/dl BUN/Creatinine Ratio 26.1 H 23.0 H (10-20) Calcium 8.2 L 8.3 L (8.5-10.1) mg/dl Diagnostic Findings cxr 07/18 1. No pneumothorax is identified. The trace pneumothorax seen on the 07/16/[address] is not apparent by x-ray. 2. Cardiomegaly, emphysema, and volume loss in the right lung are similar to previous. 3. There are right larger left pleural effusions with bibasilar consolidation. This is also unchanged.
[2018-07-20] MEDS ORDERED: POTASSIUM CHLORIDE IV SCH (07:15)
[2018-07-20] MEDS ORDERED: SODIUM CHLORIDE 0.45% IV SCH (07:15)
[2018-07-20] MEDS: CHOLECALCIFEROL 1,000 UNITS TAB PO SCH (07:53)
[2018-07-20] MEDS: PARoxetine HCl 10 MG TAB PO SCH (07:53)
[2018-07-20] MEDS: CALCITRIOL 0.25 MCG CAPSULE PO SCH (07:53)
[2018-07-20] MEDS: SIMVASTATIN 40 MG TAB PO SCH (07:53)
[2018-07-20] MEDS: POTASSIUM CHLORIDE 20 MEQ TABCR PO SCH ×2 (07:57→16:33)
[2018-07-20] MEDS: METHADONE HCL 5 MG TAB PO SCH ×2 (07:57→20:31)
--- NOTE | 2018-07-20 10:47 | Infectious Disease Progress Nt ---
Date of Service July 20, 2018 pt remains with postive Blood cultures, MSSA - 07/16, 07/17, 07/18 - all positive. Remains on rocephin and zosyn, no gnr found. 07/[address] surgery following for effusion, small and rib fractures with small pneumothorax. No fevers overnight. wbc decreased to 5.4, creat improved. no abd pain, no n/v/d, no cp, denies sob, no pain with inspiration, no wheeze, overall feeling better. all remaining ros reviewed and are negative. Assessment & Plan (1) Sepsis due to methicillin resistant Staphylococcus aureus: will continue with rocephin and stop zosyn, no gnr identified. will repeat blood cultures today, 07/18 cultures 1/2 sets growing gpc. Unclear source. will receive prolonged course of IV abx. Physical Exam Vital Signs (Past 24 Hours): Last Vital Signs Temp 36.8 C 07/20/18 07:46 Pulse 77 07/20/18 08:00 Resp 16 07/20/18 07:46 BP 135/75 07/20/18 07:46 Pulse Ox 95 07/20/18 07:46 Constitutional: WD/WN, vitals as above Eyes: PERRL, conjunctivae normal, anicteric sclerae ENMT: external ear and nose normal, oropharynx normal Neck: normal visual inspection Respiratory: normal respiratory effort, lungs clear to auscultation Auscultation: + diminished lung sounds Cardiovascular: RRR, no murmur, no edema Gastrointestinal (Abdomen): normal bowel sounds, soft, nontender, no hepatosplenomegaly Musculoskeletal: no cyanosis or clubbing, extremities motor strength 5/5 Skin: + lesion, + wound, + dry skin, + ecchymosis and + excoriations Psychiatric: A+Ox3, euthymic affect Results & Data Laboratory Results Microbiology 07/18/18 15:44 Blood Blood Culture - Preliminary Gram positive cocci 07/18/18 15:57 Blood Blood Culture - Preliminary Gram positive cocci 07/16/18 15:12 Blood Blood Culture - Final Staphylococcus aureus 07/16/18 15:09 Blood Blood Culture - Final Staphylococcus aureus 07/17/18 20:55 Blood Blood Culture - Preliminary Staphylococcus aureus 07/17/18 20:45 Blood Blood Culture - Preliminary Staphylococcus aureus 07/17/18 04:55 Urine,Clean Catch Urine Culture - Final No growth - less than 1,000 colonies/mL.
--- NOTE | 2018-07-20 11:36 | Progress Note ---
DATE: 07/20/2018 Mr. Mejia was seen today. He is on room air. He actually looks pretty good, has no complaints whatsoever. However, I am concerned about him. He continues to have positive blood cultures for gram-positive cocci. This grew out a Staph aureus, which appears to be a pansensitive organism. He has no fevers. He has no leukocytosis. He does have some fluid in his right chest. As he has very little in the way of symptoms, I would probably simply follow this and check a CT scan in the next week or so; however, given his positive blood cultures, I think it is the onus, is on us to prove that this is not infected. We are going to perform a bedside thoracentesis under ultrasound guidance later this afternoon. I discussed this with the patient. He is agreeable.
[2018-07-20] MEDS ORDERED: levoFLOXacin 750 MG TAB PO SCH (16:00)
--- NOTE | 2018-07-20 16:12 | CT Scan Report ---
CT chest wo con CT DOSE: 346.59 mGy.cm HISTORY: Fusion postthoracentesis TECHNIQUE: Multiaxial CT images of the chest were performed without contrast. A dose lowering techni que was utilized adhering to the principles of ALARA. COMPARISON: 07/16/2018 FINDINGS: Interval right-sided thoracentesis. Minimal residual right pleural fluid. Small postprocedu ral pneumothorax involving the posterior right lower lobe region as well as anterior right base. This is less than 5% overall 1.. Consolidative process right base measuring 5 cm. Parenchymal nodularity previously described is consi dered stable. Moderate increase in volume of a left pleural effusion. Stable postoperative changes of the thoracolu mbar spine. Several old and/or healing posterior rib fractures. Limited and essentially nondiagnostic evaluation the upper abdomen shows virtual absence of fat making evaluation of upper abdominal struc tures nondiagnostic. IMPRESSION: 1. Interval right thoracentesis with considerable decrease involving the right effusion. 2. Residual foci of consolidation versus nodular pathology right base. 3. Very small right-sided hydropneumothorax. 4. Interval increase in volume of left effusion. 5. Parenchymal nodularity stable compared to the prior study.. 6. Unchanged tortuosity and ectasia of the thoracic aorta. The above report was generated using voice recognition software. It may contain grammatical, syntax or spelling errors. Electronically signed by: Kentrell Frances M.D. 07/20/2018 4:11 PM
--- NOTE | 2018-07-20 16:17 | XRay Report ---
XR chest 1V portable CLINICAL HISTORY: thoracentesis postthoracentesis COMPARISON STUDY: No previous studies for comparison. FINDINGS: No significant postprocedural pneumothorax based on routine image criteria. Parenchymal den sity right base possibly inflammatory unchanged. Please 1. Nondisplaced right rib fracture which of been previously described. Unchanging interstitial change left base. Lungs otherwise are clear. IMPRESSION: Decrease in volume of a right effusion postthoracentesis. No significant postprocedural pneumothorax , although a tiny pneumothorax is seen on CT exam. Interval development of a small left effusion The above report was generated using voice recognition software. It may contain grammatical, syntax or spelling errors. Electronically signed by: Kentrell Frances M.D. 07/20/2018 4:16 PM
[2018-07-20 16:32] LABS: Glucose Pleural Fluid 88 mg/dl
[2018-07-20] MEDS: DIGOXIN 0.125 MG TAB PO SCH (16:32)
[2018-07-20 16:37] LABS: LDH Pleural Fluid 123 U/L; Total Protein Pleural Fluid 1.7 g/dl
[2018-07-20 16:50] LABS: Appearance Pleural Fluid CLOUDY; Color Pleural Fluid AMBER; Mononuclear WBC Pleural 67.2 %; Polynuclear WBC Pleural 32.8 %; RBC Pleural Fluid (A) 5000 /uL; Source Pleural Fluid RIGHT LUNG; WBC Pleural Fluid (A) 275 /uL
--- NOTE | 2018-07-20 21:05 | Hospitalist Progress Note ---
Date of Service July 20, 2018 Assessment & Plan (1) Bacteremia: Present on admission with weakness, lethargy and confusion Elevated WBC and procalcitonin on admission Blood cx positive for gram positive cocci Received Levaquin and Rocephin in the ER On Vanco IV and Zosyn ID on board Repeat blood cx growth gram positive cocciWill continue Rocephin and d/c zosyn All 3 set of blood cx positive for gram positive cocci ECHO showed no evidence for vegetation Will discussed with thoracic surgery about the loculated pleural effusion since blood cx remind positive Repeat a 4th sets of blood cx pending (2) Pneumonitis: CT CHEST showed Pleural parenchymal scarring of the right lung base with areas of suggested round atelectasis. bibasilar opacities are suggestive of probable pneumonitis with bronchiolitis. CXR showed Infiltrate at the right lung base with loculated right pleural effusion. Continue Levaquin for now Blood cx positive for gram positive cocci Continue monitor closely (3) Anemia: Hgb on admission 7.7 Received 2 unit PRBC Hgb 10.4 Monitor CBC (4) Pneumothorax: Multiple Rib fracture CT CHEST showed Small right-sided pneumothorax of unknown etiology.No acute rib fracture identified. Saturating well on room air Thoracic surgery on board (5) Weakness: Possible related to acute illness and anemia CT Head negative PT/OT Fall precaution (6) Bradycardia: HR has been stable Atenolol on hold Will consider to decrease (7) History of fall: (8) Multiple fractures of ribs with routine healing: (9) Fracture of sternum with routine healing: Patient with history of multiple falls, last fall being on 07/01/18. At that point time he had right-sided rib pain and sternal pain. Had outpatient sternal x-ray on 06/29/18 which showed possible mid sternal fracture. Patient reports since has had decreased rib and sternal pain and is denying any pain today. Stable Continue incentive spirometry Fall precaution (10) Elevated troponin: Mostly demand ischemia due to anemia in the setting of CKD Troponin trending down EKG showed no ischemic changes aspirin on hold due to low Hgb Atenolol on hold due to bradycardia (11) Acute kidney injury superimposed on CKD: Cr: 2.2. Baseline 1.5-1.9 Creatinine on admission 2.29, then 1.6 today Avoid nephrotoxic agents when possible Nephrology on board (12) A-fib: Chronic a-fib. Off anticoagulation secondary to risks outweighing benefits since 03/2018. Atenolol on hold due to bradycardia Will check digoxin level and possible decrease it (13) Right-sided heart failure: Chronic right sided heart failure Asymptomatic Lasix on hold due to elevated creatinine Continue monitor closely (14) CAD (coronary artery disease): S/P CHARLEE LCx in 2006 continue statin Aspirin and atenolol on hold Stable (15) Hypertension: BP stable Will resume lisinopril in am (16) Hypothyroidism: continue levothyroxine (17) Chronic back pain: continue methadone (18) GARRETT (obstructive sleep apnea): continue Bipap HS Confusion possible related to metabolic encephalopathy CT head showed no acute intracranial abnormality. Age-related atrophy Stable (19) GERD (gastroesophageal reflux disease): continue H2 musa DVT Prophylaxis SCDs due to low hgb CODE STATUS DNR/DNI Subjective Pt was seen and examined Lying in bed with no distress with at bedside Denies any chest pain, palpitation and SOB Physical Exam Vital Signs (Past 24 Hours): Last Vital Signs Temp 36.7 C 07/20/18 19:13 Pulse 88 07/20/18 19:13 Resp 18 07/20/18 19:13 BP 119/74 07/20/18 19:13 Pulse Ox 95 07/20/18 19:13 Physical Exam: General- No acute distress Head- atraumatic Eyes- PERRL, EOMI, ENT- oropharynx clear Neck- supple, no JVD Lungs- Diminished BS Heart- irregular rhythm Abdomen- normal bowel sounds, soft Extremities- no calf tenderness Neuro- alert, oriented x 3; PERRL, EOMI; no facial palsy; no dysarthria Skin- warm & dry, multiple bruises
--- NOTE | 2018-07-21 02:02 | Operative Report ---
DATE OF OPERATION: 07/20/2018 PREOPERATIVE DIAGNOSIS: Complicated right pleural effusion. POSTOPERATIVE DIAGNOSIS: Complicated right pleural effusion. PROCEDURE: Right thoracentesis under ultrasound guidance. SURGEON: Gilberto Valle MD PAYMENT ANALYST: ALVIN Steel ANESTHESIA: Local. SPECIFICS OF PROCEDURE: With the patient in a seated position, an ultrasound was used to find a good window into his right pleural cavity. This was marked with indelible ink and he was prepped and draped in the usual sterile fashion. After appropriate timeout had been called, a 25-gauge needle was used to raise a skin wheal over the skin piyush. A larger needle was used to anesthetize the deeper tissues and pleura and we got free-flowing fluid out. A guidewire was inserted through the needle and the needle removed. Triple lumen catheter was slid over the guidewire and the guidewire removed. About 1250 mL of a clear serous fluid was drained. His x-ray was greatly improved. He tolerated it quite well. I removed the catheter and put an antimicrobial dressing in place. He tolerated it well. His chest x-ray was greatly improved. The fluid had a pH of 7.41. He tolerated it well. I attest to the content of the Intraoperative Record and any orders documented therein. Any exceptions are noted below. ROGELIO
[2018-07-21] MEDS: LEVOTHYROXINE SODIUM 75 MCG TABLET PO SCH (06:02)
[2018-07-21] MEDS: cefTRIAXone SODIUM 2,000 MG in DEXTROSE 5% 50 ML IV SCH (06:02)
--- NOTE | 2018-07-21 07:00 | XRay Report ---
XR chest 1V portable CLINICAL HISTORY: effusion COMPARISON STUDY: 07/20/2018 FINDINGS: The heart remains enlarged. There is pulmonary emphysema. There are persistent bilateral pl eural effusions. There are bibasilar airspace opacities with stable cystic changes at the right lung base. This may indicate a tiny loculated hydropneumothorax[ IMPRESSION: Stable findings. Cardiomegaly. Small bilateral pleural effusions, and basilar airspace op acities. Electronically signed by: Víctor Stephens M.D. 07/21/2018 6:59 AM
[2018-07-21] MEDS: CHOLECALCIFEROL 1,000 UNITS TAB PO SCH (08:21)
[2018-07-21] MEDS: SIMVASTATIN 40 MG TAB PO SCH (08:21)
[2018-07-21] MEDS: POTASSIUM CHLORIDE 20 MEQ TABCR PO SCH ×2 (08:22→15:58)
[2018-07-21] MEDS: PARoxetine HCl 10 MG TAB PO SCH (08:22)
[2018-07-21] MEDS: METHADONE HCL 5 MG TAB PO SCH ×2 (08:26→21:15)
[2018-07-21 09:33] LABS: BUN Creatinine Ratio 22.5 (10-20); Calcium 8.5 mg/dl (8.5-10.1); Creatinine Clr Calc Pharmacy 46.9 ml/min; Est GFR (African American) 57.7; Est GFR (Non-African American) 49.7; Potassium 3.7 mmol/L (3.5-5.1)
[2018-07-21] MEDS: DIGOXIN 0.125 MG TAB PO SCH (15:56)
--- NOTE | 2018-07-21 18:01 | Hospitalist Progress Note ---
Date of Service July 21, 2018 Assessment & Plan (1) Bacteremia: Present on admission with weakness, lethargy and confusion Elevated WBC and procalcitonin on admission Blood cx positive for gram positive cocci Received Levaquin and Rocephin in the ER IV Zosyn and Vanco discontinued ID on board recommended to continue Rocephin Repeat 4th blood cx growth gram positive cocci ECHO showed no evidence for vegetation Will discussed with thoracic surgery about the loculated pleural effusion since blood cx remind positive Will repeat 5th set of blood cx (2) Pneumonitis: Right Pleural effusion CT CHEST showed Pleural parenchymal scarring of the right lung base with areas of suggested round atelectasis. bibasilar opacities are suggestive of probable pneumonitis with bronchiolitis. CXR showed Infiltrate at the right lung base with loculated right pleural effusion. s/p right thoracentesis done yesterday by Dr. Valle Pleural fluid gram sent showed no organism Continue monitor closely (3) Anemia: Hgb on admission 7.7 Received 2 unit PRBC Hgb 9.5 Monitor CBC (4) Pneumothorax: Multiple Rib fracture CT CHEST showed Small right-sided pneumothorax of unknown etiology.No acute rib fracture identified. Saturating well on room air Thoracic surgery on board (5) Weakness: Possible related to acute illness and anemia CT Head negative PT/OT Fall precaution (6) Bradycardia: HR has been stable Atenolol on hold Stable (7) History of fall: (8) Multiple fractures of ribs with routine healing: (9) Fracture of sternum with routine healing: Patient with history of multiple falls, last fall being on 07/01/18. At t hat point time he had right-sided rib pain and sternal pain. Had outpatient sternal x-ray on 06/29/18 which showed possible mid sternal fracture. Patient reports since has had decreased rib and sternal pain and is denying any pain today. Continue incentive spirometry Fall precaution Stable (10) Elevated troponin: Mostly demand ischemia due to anemia in the setting of CKD Troponin trending down EKG showed no ischemic changes aspirin on hold due to low Hgb Atenolol on hold due to bradycardia (11) Acute kidney injury superimposed on CKD: Cr: 2.2. Baseline 1.5-1.9 Creatinine on admission 2.29, then 1.37 today Avoid nephrotoxic agents when possible Nephrology on board (12) A-fib: Chronic a-fib. Off anticoagulation secondary to risks outweighing benefits since 03/2018. Atenolol on hold due to bradycardia Will check digoxin level and possible decrease it (13) Right-sided heart failure: Chronic right sided heart failure Asymptomatic Lasix on hold due to elevated creatinine Continue monitor closely (14) CAD (coronary artery disease): S/P CHARLEE LCx in 2006 continue statin Aspirin and atenolol on hold Stable (15) Hypertension: BP stable Continue to hold lisinopril Monitor BP (16) Hypothyroidism: continue levothyroxine (17) Chronic back pain: continue methadone (18) GARRETT (obstructive sleep apnea): continue Bipap HS Confusion possible related to metabolic encephalopathy CT head showed no acute intracranial abnormality. Age-related atrophy Stable (19) GERD (gastroesophageal reflux disease): continue H2 musa DVT Prophylaxis SCDs due to low hgb CODE STATUS DNR/DNI Subjective Pt was seen and examined Lying in bed with no distress Pt said that he feels ok denies any chest pain, palpitation and SOB Physical Exam Vital Signs (Past 24 Hours): Last Vital Signs Temp 36.7 C 07/21/18 15:17 Pulse 82 07/21/18 16:00 Resp 18 07/21/18 15:17 BP 126/82 07/21/18 15:17 Pulse Ox 96 07/21/18 15:17 Physical Exam: General- No acute distress Head- atraumatic Eyes- PERRL, EOMI, ENT- oropharynx clear Neck- supple, no JVD Lungs- Diminished BS Heart- irregular rhythm Abdomen- normal bowel sounds, soft Extremities- no calf tenderness Neuro- alert, oriented x 3; PERRL, EOMI; no facial palsy; no dysarthria Skin- warm & dry, multiple bruises
[2018-07-22] MEDS: cefTRIAXone SODIUM 2,000 MG in DEXTROSE 5% 50 ML IV SCH (05:29)
[2018-07-22] MEDS: LEVOTHYROXINE SODIUM 75 MCG TABLET PO SCH (05:30)
[2018-07-22 07:04] LABS: Hematocrit (blood only) 30.4 % (42-52); Hemoglobin 9.5 g/dL (14.0-18.0); Mean Corpuscular Hgb Conc 31.3 g/dL (32-36); Mean Corpuscular Volume 99.3 fL (80-100); Mean Platelet Volume 10.2 fL (7.4-10.4); Platelet Count 115 K/uL (130-400); RDW Coefficient of Variation 22.4 % (11.5-14.5); RDW Standard Deviation 79.9 fL (36.4-46.3); Red Blood Count 3.06 M/uL (4.7-6.1); White Blood Count 4.63 K/uL (4.8-10.8)
--- NOTE | 2018-07-22 08:05 | Progress Note ---
DATE: 07/22/2018 Mr. Mejia remains well oxygenated on room air. His chest x-ray from yesterday showed a bit more reaccumulation of fluid, although it is not much. I would continue to follow him with serial x-rays. The cytology is still pending on his pleural fluid. It does appear to be an exudate however. MTDD
[2018-07-22] MEDS: CHOLECALCIFEROL 1,000 UNITS TAB PO SCH (08:18)
[2018-07-22] MEDS: POTASSIUM CHLORIDE 20 MEQ TABCR PO SCH ×2 (08:19→15:57)
[2018-07-22] MEDS: SIMVASTATIN 40 MG TAB PO SCH (08:19)
[2018-07-22] MEDS: METHADONE HCL 5 MG TAB PO SCH ×2 (08:19→20:48)
[2018-07-22] MEDS: PARoxetine HCl 10 MG TAB PO SCH (08:19)
[2018-07-22] MEDS: CALCITRIOL 0.25 MCG CAPSULE PO SCH (08:20)
[2018-07-22 09:59] LABS: BUN Creatinine Ratio 21.9 (10-20); Calcium 8.7 mg/dl (8.5-10.1); Creatinine Clr Calc Pharmacy 47.4 ml/min; Est GFR (African American) 57.7; Est GFR (Non-African American) 49.7; Potassium 3.9 mmol/L (3.5-5.1)
[2018-07-22] MEDS: DIGOXIN 0.125 MG TAB PO SCH (15:57)
--- NOTE | 2018-07-22 18:28 | Hospitalist Progress Note ---
Date of Service July 22, 2018 Assessment & Plan (1) Bacteremia: Present on admission with weakness, lethargy and confusion Elevated WBC and procalcitonin on admission Blood cx positive for gram positive cocci Received Levaquin and Rocephin in the ER IV Zosyn and Vanco discontinued ID on board recommended to continue Rocephin Repeat 4th blood cx growth gram positive cocci ECHO showed no evidence for vegetation Will discussed with thoracic surgery about the loculated pleural effusion since blood cx remind positive Repeat 5th set of blood cx pending (2) Pneumonitis: Right Pleural effusion CT CHEST showed Pleural parenchymal scarring of the right lung base with areas of suggested round atelectasis. bibasilar opacities are suggestive of probable pneumonitis with bronchiolitis. CXR showed Infiltrate at the right lung base with loculated right pleural effusion. s/p right thoracentesis done yesterday by Dr. Valle Pleural fluid gram sent showed no organism Continue monitor closely (3) Anemia: Hgb on admission 7.7 Received 2 unit PRBC Hgb 9.5 Monitor CBC (4) Pneumothorax: Multiple Rib fracture CT CHEST showed Small right-sided pneumothorax of unknown etiology.No acute rib fracture identified. Saturating well on room air Thoracic surgery on board (5) Weakness: Possible related to acute illness and anemia CT Head negative PT/OT Fall precaution (6) Bradycardia: HR has been stable Atenolol on hold Stable (7) History of fall: (8) Multiple fractures of ribs with routine healing: (9) Fracture of sternum with routine healing: Patient with history of multiple falls, last fall being on 07/01/18. At that point time he had right-sided rib pain and sternal pain. Had outpatient sternal x-ray on 06/29/18 which showed possible mid sternal fracture. Patient reports since has had decreased rib and sternal pain and is denying any pain today. Continue incentive spirometry Fall precaution Stable (10) Elevated troponin: Mostly demand ischemia due to anemia in the setting of CKD Troponin trending down EKG showed no ischemic changes aspirin on hold due to low Hgb Atenolol on hold due to bradycardia (11) Acute kidney injury superimposed on CKD: Cr: 2.2. Baseline 1.5-1.9 Creatinine on admission 2.29, then 1.37 today Avoid nephrotoxic agents when possible Nephrology on board (12) A-fib: Chronic a-fib. Off anticoagulation secondary to risks outweighing benefits since 03/2018. Atenolol on hold due to bradycardia Will check digoxin level and possible decrease it (13) Right-sided heart failure: Chronic right sided heart failure Asymptomatic Lasix on hold due to elevated creatinine Continue monitor closely (14) CAD (coronary artery disease): S/P CHARLEE LCx in 2006 continue statin Aspirin and atenolol on hold Stable (15) Hypertension: BP stable Continue to hold lisinopril Monitor BP (16) Hypothyroidism: continue levothyroxine (17) Chronic back pain: continue methadone (18) GARRETT (obstructive sleep apnea): continue Bipap HS Confusion possible related to metabolic encephalopathy CT head showed no acute intracranial abnormality. Age-related atrophy Stable (19) GERD (gastroesophageal reflux disease): continue H2 musa DVT Prophylaxis SCDs due to low hgb CODE STATUS DNR/DNI Subjective Pt was seen and examined Sitting in chair with no distress Updates provided to the Denies any chest pain, palpitation and SOB Physical Exam Physical Exam: General- No acute distress Head- atraumatic Eyes- PERRL, EOMI, ENT- oropharynx clear Neck- supple, no JVD Lungs- Diminished BS Heart- irregular rhythm Abdomen- normal bowel sounds, soft Extremities- no calf tenderness Neuro- alert, oriented x 3; PERRL, EOMI; no facial palsy; no dysarthria Skin- warm & dry, multiple bruises Results & Data Vital Signs (Past 12 Hours) Vital Signs Temp Pulse Pulse Pulse Resp BP BP 07/22/18 16:00 92 H 07/22/18 15:57 86 07/22/18 15:30 36.6 C 81 19 118/74 07/22/18 11:08 36.5 C 96 H 20 136/71 07/22/18 07:20 36.5 C 77 20 123/70 07/22/18 07:12 82 Pulse Ox 07/22/18 16:00 07/22/18 15:57 07/22/18 15:30 95 07/22/18 11:08 07/22/18 07:20 95 07/22/18 07:12
[2018-07-23] MEDS ORDERED: POTASSIUM CHLORIDE 20 MEQ TABCR PO STA (01:45)
--- NOTE | 2018-07-23 01:47 | Hospitalist Progress Note ---
Date of Service July 23, 2018 Subjective Made aware by RN of 8 beat run of NSVT. Patient asymptomatic. AP NSVT Resume home beta-musa at lower dose to suppress ectopy (held due to episodic bradycardia as per records) Check electrolytes We related to AM provider. Results & Data Vital Signs (Past 12 Hours) Vital Signs Temp Pulse Pulse Pulse Resp BP BP 07/22/18 23:31 36.5 C 80 16 135/83 07/22/18 19:33 36.3 C L 82 18 144/81 H 07/22/18 16:00 92 H 07/22/18 15:57 86 07/22/18 15:30 36.6 C 81 19 118/74 Pulse Ox 07/22/18 23:31 100 07/22/18 19:33 07/22/18 16:00 07/22/18 15:57 07/22/18 15:30 95
[2018-07-23 02:01] LABS: Basophils # (auto) 0.01 K/uL (0-0.2); Basophils % (auto) 0.2 %; Eosinophils # (auto) 0.04 K/uL (0-0.5); Eosinophils % (auto) 0.8 %; Hematocrit (blood only) 31.4 % (42-52); Hemoglobin 9.7 g/dL (14.0-18.0); Immature Granulocytes # (auto) 0.06 K/uL (0.00-0.02); Immature Granulocytes % (auto) 1.2 %; Lymphocytes # (auto) 0.72 K/uL (1.2-3.4); Lymphocytes % (auto) 14.3 %; Mean Corpuscular Hgb Conc 30.9 g/dL (32-36); Mean Corpuscular Volume 100.3 fL (80-100); Mean Platelet Volume 9.7 fL (7.4-10.4); Monocytes # (auto) 0.51 K/uL (0.11-0.59); Monocytes % (auto) 10.1 %; Neutrophils # (auto) 3.71 K/uL (1.4-6.5); Neutrophils % (auto) 73.4 %; Platelet Count 127 K/uL (130-400); RDW Standard Deviation 78.6 fL (36.4-46.3); Red Blood Count 3.13 M/uL (4.7-6.1); White Blood Count 5.05 K/uL (4.8-10.8)
[2018-07-23] MEDS: ATENOLOL 25 MG TABLET PO SCH (02:10)
[2018-07-23 02:24] LABS: BUN Creatinine Ratio 20.2 (10-20); Calcium 8.5 mg/dl (8.5-10.1); Est GFR (African American) 55.7; Magnesium 2.3 mg/dl (1.8-2.4); Potassium 4.3 mmol/L (3.5-5.1)
[2018-07-23 02:26] LABS: Anisocytosis Present
[2018-07-23] MEDS: LEVOTHYROXINE SODIUM 75 MCG TABLET PO SCH (06:13)
[2018-07-23] MEDS: cefTRIAXone SODIUM 2,000 MG in DEXTROSE 5% 50 ML IV SCH (06:14)
[2018-07-23] MEDS: SIMVASTATIN 40 MG TAB PO SCH (07:53)
[2018-07-23] MEDS: POTASSIUM CHLORIDE 20 MEQ TABCR PO SCH ×2 (07:53→16:43)
[2018-07-23] MEDS: PARoxetine HCl 10 MG TAB PO SCH (07:53)
[2018-07-23] MEDS: CHOLECALCIFEROL 1,000 UNITS TAB PO SCH (07:54)
[2018-07-23] MEDS: METHADONE HCL 5 MG TAB PO SCH ×2 (07:56→20:46)
--- NOTE | 2018-07-23 11:42 | Gastrointestinal Consultation ---
Date of Consultation July 23, 2018 Assessment & Plan (1) Occult blood positive stool: Mr. Mejia is a 77 yr old male with transfusion requiring anemia and occult positive stool, with stable Hb post transfusion w/o evidence of gross GI bleeding. Suspect anemia secondary to CKD, sepsis. In light of multiple comorbidities, would defer endoscopy unless there is a draumatic drop in Hb or if gross GI bleeding. \ Present on Admission?: Yes (2) Chronic diarrhea: He reports 3-4 loose to liquid BMs/day x 2 months. Due to comorbidities, would defer endoscopy but would check a C-diff and consider Imodium BID prn diarrhea. Present on Admission?: Yes Supervising Physician Co-Signing Physician Notes Attg add: I interviewed and examined pt, reviewed chart and labs. We are consulted for anemia - pt with hgb 7.7 on admission without gross bleeding but heme pos, also with chronic loose stool and incontinence with flatus. Of note, he is a difficult historian; he refused to answer questions during my interview. His hgb has been stable x approx 1 week, and he denies gross bleeding. I d iscussed endoscopy with pt; he does not want further w/u. Regarding his diarrhea - the history that he provides is more suggestive of incontinence, rather than diarrhea. He is on methadone, which makes overflow incontinence a concern. He refused physical exam by me - would ask hospitalist to complete a neuro exam, to evaluate possible cord compression, and consider spinal imaging if needed. Please check C diff; can use PRN immodium once colestid ruled out. History of Present Illness Reason for Consultation: Positive fecal occult blood test Requesting Physician: Dr. Sheffield Attending Physician: Dayanna Sheffield MD History of Present Illness Ms. Rufus Mejia is a 77 yr old male pt of Dr. Marin with a hx of HTN, DVT/PE, A-fib, Multiple Myeloma,Hypothyroidism, CKD-3, right sided heart failure, Sleep Apnea, CAD who admitted through the ED on 07/16 for falls, weakness, hypotension (per home health nurse). Since admission here, he has been tx for MRSA Sepsis (unclear source), underwent thoracentesis, and required transfusions, 2 units of RBCs. On arrival, Hb was 7.7 and he recieved 2 units of RBCs. Hb increased to 10.4, drifted down and stayed stable since then with this morning's Hb being 9.8. The pt denies any abdominal pain, nausea/vomiting, melena or hematochezia. He does, however report diarrhea x 2 months, about 3-4 loose to liquid BMs/day. Allergies Allergy/AdvReac Type Severity Reaction Status Date / Time adhesive Allergy Unknown RASH AND Verified 07/16/18 11:44 BLISTER No Known Drug Allergies Allergy Unknown . Verified 07/16/18 11:44 Home Medications Home Medications Medication Instructions Recorded Confirmed Type Artificial Tears (PF) 1 - 2 drp OPHTHALMIC (EYE) UD 03/30/18 07/16/18 History aspirin [Aspirin Low Dose] 81 mg PO QAM 03/30/18 07/16/18 History atenolol 75 mg PO QAM 03/30/18 07/16/18 History calcitriol 0.25 mcg PO UD 03/30/18 07/16/18 History cholecalciferol (vitamin D3) 1,000 unit PO DAILY 03/30/18 07/16/18 History digoxin 62.5 mcg PO QAM 03/30/18 07/16/18 History levothyroxine 75 mcg PO QAM 03/30/18 07/16/18 History lisinopril 40 mg PO QAM 03/30/18 07/16/18 History methadone 5 mg PO BID 03/30/18 07/16/18 History paroxetine HCl 30 mg PO QAM 03/30/18 07/16/18 History ranitidine HCl 150 mg PO QAM 03/30/18 07/16/18 History simvastatin 40 mg PO DAILY 03/30/18 07/16/18 History furosemide 40 mg PO BID 07/16/18 07/16/18 History potassium chloride 10 meq PO BID 07/16/18 07/16/18 History Patient History Medical History History of pulmonary embolism (Chronic) GERD (gastroesophageal reflux disease) (Chronic) Depression (Chronic) GARRETT (obstructive sleep apnea) (Chronic) Chronic back pain (Chronic) Hypothyroidism (Chronic) Multiple myeloma (Chronic) 1991 - chemo and radiation In remission CKD (chronic kidney disease), stage III (Chronic) Hypertension A-fib (Chronic) Right-sided heart failure (Chronic) CAD (coronary artery disease) (Chronic) DVT (deep venous thrombosis) (Resolved) Anticoagulant long-term use (Chronic) Surgical History H/O inguinal hernia repair (Chronic) History of cholecystectomy (Chronic) History of lumbar surgery (Chronic) Family History Other Coronary heart disease Diabetes Hypertension Leukemia Social History Preferred Language: Micronesian Communication Ability: Effective 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 Beliefs That Will Affect Care: Roman Catholic Roman Catholic Beliefs: Church marital status: Current Living Situation: Spouse Other Information That Helps Us Care for You: No Feels Safe at Home: Yes Safety Concerns: Feels Safe At This Time Smoking Status: Former smoker Do You Dip or Chew Tobacco: No (former user, quit 35 years ago) Hx Alcohol Use: No Hx Substance Use: No Review of Systems Constitutional: + weakness; no fever and no chills Eyes: no problem reported Ear, Nose, Mouth, Throat: no ear pain, no facial pain and no mouth lesions Respiratory: + dyspnea (on ambulation for a few months); no cough and no chest congestion Cardiovascular: + palpitations (A-fib); no chest pain, no syncope and no edema Gastrointestinal: as per Subjective / HPI Integumentary: ecchymosis since being on warfarin which was stopped in Mar 2018 due to fall risk Neurologic: no tremor(s) and no confusion Psychiatric: no behavioral changes, no depression and no change in appetite Endocrine: + fatigue; no polydipsia, no polyphagia and no polyuria Physical Exam Constitutional: WD/WN, vitals as above + thin Eyes: PERRL, conjunctivae normal, anicteric sclerae ENMT: external ear and nose normal, oropharynx normal Neck: trachea midline, no thyromegaly Respiratory: normal respiratory effort, lungs clear to auscultation Auscultation: no crackles and no wheezes Cardiovascular: Rate/Rhythm: regular rate and regular rhythm Heart Sounds: + murmur (3/6 systolic, consistent with pt report of ) Vessels: no JVD Gastrointestinal (Abdomen): Inspection/Auscultation: normal bowel sounds Percussion/Palpation: abdomen soft; abdomen nontender no masses Musculoskeletal: 2 right anterior lower ribs surgically absent Bilat lower legs with reddened, dull skin - chronic Neurologic: PERRL, EOMI, accommodation nl, no face palsy, no dysarthria Psychiatric: A+Ox3, euthymic affect Results & Data Vital Signs (Past 12 Hours) Vital Signs Temp Pulse Resp BP Pulse Ox 07/23/18 07:24 36.7 C 74 18 143/75 H 07/23/18 04:00 36.5 C 51 L 18 134/63 93
[2018-07-23] MEDS: LOPERAMIDE HCL 2 MG CAP PO PRN (16:42)
[2018-07-23] MEDS: DIGOXIN 0.125 MG TAB PO SCH (16:45)
--- NOTE | 2018-07-23 20:55 | Hospitalist Progress Note ---
Date of Service July 23, 2018 Assessment & Plan (1) Bacteremia: Present on admission with weakness, lethargy and confusion Elevated WBC and procalcitonin on admission Blood cx positive for gram positive cocci Received Levaquin and Rocephin in the ER IV Zosyn and Vanco discontinued ID on board recommended to continue Rocephin Repeat 4th blood cx growth gram positive cocci ECHO showed no evidence for vegetation Will discussed with thoracic surgery about the loculated pleural effusion since blood cx remind positive Will repeat 5th set of blood cx (2) Pneumonitis: Right Pleural effusion CT CHEST showed Pleural parenchymal scarring of the right lung base with areas of suggested round atelectasis. bibasilar opacities are suggestive of probable pneumonitis with bronchiolitis. CXR showed Infiltrate at the right lung base with loculated right pleural effusion. s/p right thoracentesis done yesterday by Dr. Valle Pleural fluid gram sent showed no organism Continue monitor closely (3) Anemia: Hgb on admission 7.7 Received 2 unit PRBC Hgb 9.5 Monitor CBC (4) Pneumothorax: Multiple Rib fracture CT CHEST showed Small right-sided pneumothorax of unknown etiology.No acute rib fracture identified. Saturating well on room air Thoracic surgery on board (5) Weakness: Possible related to acute illness and anemia CT Head negative PT/OT Fall precaution (6) Bradycardia: HR has been stable Atenolol on hold Stable (7) History of fall: (8) Multiple fractures of ribs with routine healing: (9) Fracture of sternum with routine healing: Patient with history of multiple falls, last fall being on 07/01/18. At t hat point time he had right-sided rib pain and sternal pain. Had outpatient sternal x-ray on 06/29/18 which showed possible mid sternal fracture. Patient reports since has had decreased rib and sternal pain and is denying any pain today. Continue incentive spirometry Fall precaution Stable (10) Elevated troponin: Mostly demand ischemia due to anemia in the setting of CKD Troponin trending down EKG showed no ischemic changes aspirin on hold due to low Hgb Atenolol on hold due to bradycardia (11) Acute kidney injury superimposed on CKD: Cr: 2.2. Baseline 1.5-1.9 Creatinine on admission 2.29, then 1.37 today Avoid nephrotoxic agents when possible Nephrology on board (12) A-fib: Chronic a-fib. Off anticoagulation secondary to risks outweighing benefits since 03/2018. Atenolol on hold due to bradycardia Will check digoxin level and possible decrease it (13) Right-sided heart failure: Chronic right sided heart failure Asymptomatic Lasix on hold due to elevated creatinine Continue monitor closely (14) CAD (coronary artery disease): S/P CHARLEE LCx in 2006 continue statin Aspirin and atenolol on hold Stable (15) Hypertension: BP stable Continue to hold lisinopril Monitor BP (16) Hypothyroidism: continue levothyroxine (17) Chronic back pain: continue methadone (18) GARRETT (obstructive sleep apnea): continue Bipap HS Confusion possible related to metabolic encephalopathy CT head showed no acute intracranial abnormality. Age-related atrophy Stable (19) GERD (gastroesophageal reflux disease): continue H2 musa Right Hip wound Continue daily dressing Wound care on board DVT Prophylaxis SCDs due to low hgb CODE STATUS DNR/DNI Subjective Pt was seen and examined Lying in bed with no distress Pt said that he is having multiple BM Stool was positive for occult blood Denies any chest pain, palpitation and SOB Physical Exam Physical Exam: General- No acute distress Head- atraumatic Eyes- PERRL, EOMI, ENT- oropharynx clear Neck- supple, no JVD Lungs- Diminished BS Heart- irregular rhythm Abdomen- normal bowel sounds, soft Extremities- no calf tenderness Neuro- alert, oriented x 3; PERRL, EOMI; no facial palsy; no dysarthria Skin- warm & dry, multiple bruises Results & Data Vital Signs (Past 12 Hours) Vital Signs Temp Pulse Pulse Resp BP Pulse Ox 07/23/18 19:57 36.7 C 80 18 127/78 90 07/23/18 16:45 73 07/23/18 15:59 36.9 C 85 18 132/84 90 07/23/18 11:39 36.7 C 77 18 167/67 H 94
[2018-07-24] MEDS: cefTRIAXone SODIUM 2,000 MG in DEXTROSE 5% 50 ML IV SCH (06:24)
[2018-07-24] MEDS: LEVOTHYROXINE SODIUM 75 MCG TABLET PO SCH (06:27)
[2018-07-24] MEDS: SIMVASTATIN 40 MG TAB PO SCH (08:23)
[2018-07-24] MEDS: CHOLECALCIFEROL 1,000 UNITS TAB PO SCH ×2 (08:24→08:38)
[2018-07-24] MEDS: ATENOLOL 25 MG TABLET PO SCH (08:24)
[2018-07-24] MEDS: PARoxetine HCl 10 MG TAB PO SCH (08:24)
[2018-07-24] MEDS: CALCITRIOL 0.25 MCG CAPSULE PO SCH (08:25)
[2018-07-24] MEDS: POTASSIUM CHLORIDE 20 MEQ TABCR PO SCH ×2 (08:25→16:26)
[2018-07-24] MEDS: METHADONE HCL 5 MG TAB PO SCH ×2 (08:30→20:35)
[2018-07-24 08:44] LABS: Hematocrit (blood only) 33.3 % (42-52); Hemoglobin 10.3 g/dL (14.0-18.0); Mean Corpuscular Hgb Conc 30.9 g/dL (32-36); Mean Corpuscular Volume 100.6 fL (80-100); Mean Platelet Volume 9.6 fL (7.4-10.4); Platelet Count 195 K/uL (130-400); RDW Coefficient of Variation 21.9 % (11.5-14.5); RDW Standard Deviation 79.9 fL (36.4-46.3); Red Blood Count 3.31 M/uL (4.7-6.1); White Blood Count 5.58 K/uL (4.8-10.8)
[2018-07-24 09:00] LABS: BUN Creatinine Ratio 21.7 (10-20); Calcium 8.9 mg/dl (8.5-10.1); Creatinine Clr Calc Pharmacy 57.8 ml/min; Est GFR (African American) 71.2; Est GFR (Non-African American) 61.5; Potassium 4.4 mmol/L (3.5-5.1)
--- NOTE | 2018-07-24 10:34 | Infectious Disease Progress Nt ---
Date of Service July 24, 2018 Assessment & Plan (1) Sepsis due to methicillin resistant Staphylococcus aureus: no clear source, continued septicemia. remains on rocephin, will need 6 weeks from first negative culture 1/2 sets 07/20 + will repeat today. If negative, will need picc, and 6 weeks IV rocephin. pleural fluid culture negative but had multiple days of IV prior to drainage, may have sterilized fluid. will need weekly cmp, cbc, esr while on abx. Subjective pt 07/20 blood cultures 1/2 MSSA as well. will repeat today. underwent drainage of pleural effusion, 1250mL clear fluid drained, culture negative. afebrile. remains on rocephin, tolerating well. wbc 5.5 today. echo negative. Results & Data Vital Signs (Past 12 Hours) Vital Signs Temp Pulse Pulse Pulse Resp BP BP 07/24/18 08:00 93 H 07/24/18 07:41 36.3 C L 76 18 126/73 07/24/18 04:41 36.7 C 81 18 144/79 H 07/23/18 23:34 36.4 C L 79 18 132/78 Pulse Ox 07/24/18 08:00 07/24/18 07:41 91 07/24/18 04:41 98 07/23/18 23:34 97 Laboratory Results Microbiology 07/22/18 09:22 Blood Blood Culture - Preliminary No growth to date. 07/22/18 09:10 Blood Blood Culture - Preliminary No growth to date. 07/18/18 15:44 Blood Blood Culture - Final Staphylococcus aureus 07/20/18 15:15 Pleural Fluid Gram Stain - Final 07/20/18 15:15 Pleural Fluid Aerobic and Anaerobic Culture - Preliminary No growth to date. 07/20/18 08:45 Blood Blood Culture - Final Staphylococcus aureus 07/17/18 20:55 Blood Blood Culture - Final Staphylococcus aureus 07/17/18 20:45 Blood Blood Culture - Final Staphylococcus aureus 07/20/18 15:15 Pleural Fluid Acid Fast Bacilli Smear - Final 07/20/18 08:36 Blood Blood Culture - Preliminary No growth to date. 07/20/18 15:15 Pleural Fluid Fungal Smear - Final 07/18/18 15:57 Blood Blood Culture - Final Staphylococcus aureus 07/16/18 15:12 Blood Blood Culture - Final Staphylococcus aureus 07/16/18 15:09 Blood Blood Culture - Final Staphylococcus aureus 07/17/18 04:55 Urine,Clean Catch Urine Culture - Final No growth - less than 1,000 colonies/mL.
[2018-07-24] MEDS: LOPERAMIDE HCL 2 MG CAP PO PRN (14:32)
[2018-07-24] MEDS: DIGOXIN 0.125 MG TAB PO SCH (16:26)
--- NOTE | 2018-07-24 19:59 | Progress Note ---
DATE: 07/24/2018 Mr. Mejia underwent a thoracentesis 4 days ago for 1200 mL in his right pleural cavity. This is a transudate and is benign. He remains on room air. I would check an x-ray to make sure this does not recur. I was a bit concerned about the consolidation of his right lung; however, I do not believe that this effusion has anything to do with his persistent septicemia. His last blood cultures apparently have shown no growth. We had no growth and no evidence of infection in the pleural fluid. I do not believe this is contributing to his septicemia.
--- NOTE | 2018-07-24 21:27 | Hospitalist Progress Note ---
Date of Service July 24, 2018 Assessment & Plan (1) Bacteremia: Present on admission with weakness, lethargy and confusion Elevated WBC and procalcitonin on admission Blood cx positive for gram positive cocci Received Levaquin and Rocephin in the ER IV Zosyn and Vanco discontinued ID on board recommended to continue Rocephin Repeat 4th blood cx growth gram positive cocci ECHO showed no evidence for vegetation Will discussed with thoracic surgery about the loculated pleural effusion since blood cx remind positive Repeat 5th set of blood cx no growth so far If blood cx remains negative, will need to place a PICC for IV abx infusion x weeks with Rocephin as per ID Will need weekly weekly cmp, cbc, esr while on abx. (2) Pneumonitis: Right Pleural effusion CT CHEST showed Pleural parenchymal scarring of the right lung base with areas of suggested round atelectasis. bibasilar opacities are suggestive of probable pneumonitis with bronchiolitis. CXR showed Infiltrate at the right lung base with loculated right pleural effusion. s/p right thoracentesis done by Dr. Valle Pleural fluid gram and cx sent showed no organism Continue monitor closely (3) Anemia: Hgb on admission 7.7 Received 2 unit PRBC Hgb 10.3 today Monitor CBC (4) Pneumothorax: Multiple Rib fracture CT CHEST showed Small right-sided pneumothorax of unknown etiology.No acute rib fracture identified. Saturating well on room air Thoracic surgery on board (5) Weakness: Possible related to acute illness and anemia CT Head negative PT/OT Fall precaution (6) Bradycardia: HR has been stable Atenolol on hold Stable (7) History of fall: (8) Multiple fractures of ribs with routine healing: (9) Fracture of sternum with routine healing: Patient with history of multiple falls, last fall being on 07/01/18. At that point time he had right-sided rib pain and sternal pain. Had outpatient sternal x-ray on 06/29/18 which showed possible mid sternal fracture. Patient reports since has had decreased rib and sternal pain and is denying any pain today. Continue incentive spirometry Fall precaution Stable (10) Elevated troponin: Mostly demand ischemia due to anemia in the setting of CKD Troponin trending down EKG showed no ischemic changes aspirin on hold due to low Hgb Atenolol on hold due to bradycardia (11) Acute kidney injury superimposed on CKD: Cr: 2.2. Baseline 1.5-1.9 Creatinine on admission 2.29, then 1.37 today Avoid nephrotoxic agents when possible Nephrology on board (12) A-fib: Chronic a-fib. Off anticoagulation secondary to risks outweighing benefits since 03/2018. HR controlled Atenolol on hold due to bradycardia Digoxin level normal (13) Right-sided heart failure: Chronic right sided heart failure Asymptomatic Lasix on hold due to elevated creatinine Continue monitor closely (14) CAD (coronary artery disease): S/P CHARLEE LCx in 2006 continue statin Aspirin and atenolol on hold Stable (15) Hypertension: BP stable Continue to hold lisinopril Monitor BP (16) Hypothyroidism: continue levothyroxine (17) Chronic back pain: continue methadone (18) GARRETT (obstructive sleep apnea): continue Bipap HS Confusion possible related to metabolic encephalopathy CT head showed no acute intracranial abnormality. Age-related atrophy Stable (19) GERD (gastroesophageal reflux disease): continue H2 musa Right Hip wound Continue daily dressing Wound care on board DVT Prophylaxis SCDs due to low hgb CODE STATUS DNR/DNI Disposition Will need PICC line for IV abx infusion x 6 weeks with Rocephin Subjective Pt was seen and examined Sitting in chair with no distress Pt said that he has not been moving much since being in the hospital He would like to walk around more so that he can get stronger He agreed to go to a facility to get therapy Denies any chest pain, palpitation, dizziness and sOB Physical Exam Physical Exam: General- No acute distress Head- atraumatic Eyes- PERRL, EOMI, ENT- oropharynx clear Neck- supple, no JVD Lungs- Diminished BS Heart- irregular rhythm Abdomen- normal bowel sounds, soft Extremities- no calf tenderness, right hip posterior wound with no drainage Neuro- alert, oriented x 3; PERRL, EOMI; no facial palsy; no dysarthria Skin- warm & dry, multiple bruises Results & Data Vital Signs (Past 12 Hours) Vital Signs Temp Pulse Pulse Resp BP Pulse Ox 07/24/18 19:58 36.8 C 69 20 130/76 97 07/24/18 16:26 72 07/24/18 16:00 70 07/24/18 15:08 36.8 C 75 18 120/75 91 07/24/18 11:24 37.5 C 72 18 96/57 L 94
[2018-07-25] MEDS: cefTRIAXone SODIUM 2,000 MG in DEXTROSE 5% 50 ML IV SCH (05:25)
[2018-07-25] MEDS: LEVOTHYROXINE SODIUM 75 MCG TABLET PO SCH (06:13)
[2018-07-25] MEDS: POTASSIUM CHLORIDE 20 MEQ TABCR PO SCH ×2 (08:21→17:17)
[2018-07-25] MEDS: ATENOLOL 25 MG TABLET PO SCH (08:22)
[2018-07-25] MEDS: PARoxetine HCl 10 MG TAB PO SCH (08:22)
[2018-07-25] MEDS: CHOLECALCIFEROL 1,000 UNITS TAB PO SCH (08:22)
[2018-07-25] MEDS: SIMVASTATIN 40 MG TAB PO SCH (08:22)
[2018-07-25] MEDS: METHADONE HCL 5 MG TAB PO SCH ×2 (08:26→20:47)
[2018-07-25] MEDS: DIGOXIN 0.125 MG TAB PO SCH (17:17)
--- NOTE | 2018-07-25 19:25 | Hospitalist Progress Note ---
Date of Service July 25, 2018 Assessment & Plan (1) Bacteremia: WBC elevated, but did not meet criteria for sepsis. Multiple blood cultures from 07/17 - 07/18 growing Staph aureus, methicillin resistant. Source not clear. Echocardiogram 07/18 did not show any apparent valvular vegetations. ID consulted. Receiving IV ceftriaxone. Repeat blood culture from 07/22 growing gram positive cocci in clusters. Repeat blood culture from 07/24 negative so far. Needs PICC once bacteremia cleared. (2) Elevated troponin: Serum troponin as high as 0.072. No anginal symptoms. Elevated troponin attributed to infection / demand ischemia. (3) Right-sided heart failure: Furosemide held due to KATELYN. Follow. (4) Atrial fibrillation: Had bradycardia as low as 45. Atenolol dose decreased. Continue digoxin. No anticoagulation due to chronic GI bleeding. (5) Bradycardia: Had bradycardia as low as 45. Atenolol dose decreased. (6) Pneumonia: Chest x-ray and CT demonstrated infiltrate at right base with a right pleural effusion. Receiving IV antibiotics- currently ceftriaxone. (7) Pneumothorax: Small pneumothorax noted on CT chest. Status post falls with right rib fractures. (8) Pleural effusion: Moderate right pleural effusion and small left pleural effusion noted on CT. Associated with right rib fractures and infiltrate right base. Thoracentesis performed- cultures and cytology negative. (9) Pulmonary nodules: Pulmonary nodules up to [address] chest. Follow per guidelines. (10) GERD (gastroesophageal reflux disease): Continue ranitidine. (11) Acute kidney injury superimposed on CKD: Serum creatinine 2.25 at time of admission. Acute kidney injury superimposed on CKD. KATELYN probably due to combination of infection + volume depletion. Nephrology consulted. Furosemide held. Creatinine yesterday = 1.15. Follow. (12) Hypothyroidism: TSH minimally elevated at 4.630. Continue levothyroxine. (13) Anemia: Anemia 7.7 at time of admission. Stools heme +. Received 2 units pRBC's. Hgb yesterday = 10.3. Follow. Check prior eval. (14) History of fall: History of multiple falls. PT / OT. (15) DVT prophylaxis: No anticoagulants because of heme positive stools. SCD's. Ambulate. (16) Discharge planning issues: To be determined. May need skilled care or inpatient rehab. Family Medicine follow-up with Dr. Marin. Subjective Recheck for multiple problems. Pt seen in his room around 1610. Feels better. No fever. Occasional cough. No shortness of breath. No chest pain. No nausea or vomiting. Had a few loose stools yesterday. No diarrhea. Review of Systems Review of Systems: As noted above. Physical Exam Constitutional: no acute distress Respiratory: no respiratory distress Auscultation: lungs clear to auscultation bilaterally Cardiovascular: Rate/Rhythm: + irregularly irregular Heart Sounds: + murmur; no gallop Vessels: no JVD Extremities: + edema (trace); no calf tenderness Gastrointestinal (Abdomen): normal bowel sounds, soft, nontender, no hepatosplenomegaly Skin: + rash (chronic venous stasis changes of lower extremities) Psychiatric: Orientation: alert and oriented x 3 Results & Data Vital Signs (Past 12 Hours) Vital Signs Temp Pulse Pulse Resp BP BP Pulse Ox 07/25/18 17:17 82 07/25/18 15:55 36.9 C 72 18 132/81 98 07/25/18 11:30 36.9 C 55 L 18 132/65 93 07/25/18 10:30 71 07/25/18 08:06 36.5 C 103 H 18 169/95 H 93
[2018-07-26] MEDS: cefTRIAXone SODIUM 2,000 MG in DEXTROSE 5% 50 ML IV SCH (05:37)
[2018-07-26] MEDS: LEVOTHYROXINE SODIUM 75 MCG TABLET PO SCH (06:13)
[2018-07-26] MEDS: METHADONE HCL 5 MG TAB PO SCH ×2 (08:44→20:28)
[2018-07-26] MEDS: PARoxetine HCl 10 MG TAB PO SCH (08:46)
[2018-07-26] MEDS: POTASSIUM CHLORIDE 20 MEQ TABCR PO SCH ×2 (08:46→17:27)
[2018-07-26] MEDS: CHOLECALCIFEROL 1,000 UNITS TAB PO SCH (08:47)
[2018-07-26] MEDS: SIMVASTATIN 40 MG TAB PO SCH (08:48)
[2018-07-26] MEDS: ATENOLOL 25 MG TABLET PO SCH (08:48)
[2018-07-26 09:33] LABS: Hematocrit (blood only) 31.3 % (42-52); Hemoglobin 9.6 g/dL (14.0-18.0); Mean Corpuscular Hgb Conc 30.7 g/dL (32-36); Mean Corpuscular Volume 101.6 fL (80-100); Mean Platelet Volume 10.4 fL (7.4-10.4); Platelet Count 273 K/uL (130-400); RDW Coefficient of Variation 21.7 % (11.5-14.5); RDW Standard Deviation 79.2 fL (36.4-46.3); Red Blood Count 3.08 M/uL (4.7-6.1); White Blood Count 7.68 K/uL (4.8-10.8)
[2018-07-26 10:07] LABS: BUN Creatinine Ratio 20.1 (10-20); Calcium 8.9 mg/dl (8.5-10.1); Creatinine Clr Calc Pharmacy 56.3 ml/min; Est GFR (African American) 70.5; Est GFR (Non-African American) 60.8; Potassium 4.4 mmol/L (3.5-5.1)
[2018-07-26] MEDS: DIGOXIN 0.125 MG TAB PO SCH (17:22)
--- NOTE | 2018-07-27 02:40 | Hospitalist Progress Note ---
Date of Service Date of Service 07/26/18 (late entry) July 27, 2018 Assessment & Plan (1) Bacteremia: WBC elevated, but did not meet criteria for sepsis. Multiple blood cultures from 07/17 - 07/18 growing Staph aureus, methicillin resistant. Source not clear. Echocardiogram 07/18 did not show any apparent valvular vegetations. ID consulted. Receiving IV ceftriaxone. Repeat blood culture from 07/22 growing Staph aureus. Repeat blood culture from 07/24 negative so far. Needs PICC once bacteremia cleared. Consider LISS for further evaluation; consult Cardiology. (2) Elevated troponin: Serum troponin as high as 0.072. No anginal symptoms. Elevated troponin attributed to infection / demand ischemia. (3) Right-sided heart failure: Furosemide held due to KATELYN. Follow. (4) Atrial fibrillation: Had bradycardia as low as 45. Atenolol dose decreased. Continue digoxin. No anticoagulation due to chronic GI bleeding. (5) Bradycardia: Had bradycardia as low as 45. Atenolol dose decreased. (6) Pneumonia: Chest x-ray and CT demonstrated infiltrate at right base with a right pleural effusion. Receiving IV antibiotics- currently ceftriaxone. (7) Pneumothorax: Small pneumothorax noted on CT chest. Status post falls with right rib fractures. (8) Pleural effusion: Moderate right pleural effusion and small left pleural effusion noted on CT. Associated with right rib fractures and infiltrate right base. Thoracentesis performed- cultures and cytology negative. (9) Pulmonary nodules: Pulmonary nodules up to [address] chest. Follow per guidelines. (10) GERD (gastroesophageal reflux disease): Continue ranitidine. (11) Acute kidney injury superimposed on CKD: Serum creatinine 2.25 at time of admission. Acute kidney injury superimposed on CKD. KATELYN probably due to combination of infection + volume depletion. Nephrology consulted. Furosemide held. Creatinine yesterday = 1.16. Follow. (12) Hypothyroidism: TSH minimally elevated at 4.630. Continue levothyroxine. (13) Anemia: Anemia 7.7 at time of admission. Stools heme +. Received 2 units pRBC's. Hgb today = 9.6. Follow. Check prior eval. (14) History of fall: History of multiple falls. PT / OT. (15) DVT prophylaxis: No anticoagulants because of heme positive stools. SCD's. Ambulate. (16) Discharge planning issues: To be determined. May need skilled care or inpatient rehab. Family Medicine follow-up with Dr. Marin. Subjective Recheck for multiple problems. Pt seen in his room around 1630. No new problems. No fever. Occasional cough. No shortness of breath. No chest pain. No nausea or vomiting. No diarrhea. No urinary symptoms. No back pain. Review of systems as noted above. Physical Exam Physical Exam: VS @ 0742 - 36.7, 80, 18, 147/75 Constitutional: no acute distress Respiratory: no respiratory distress Auscultation: lungs clear to auscultation bilaterally Cardiovascular: Rate/Rhythm: + irregularly irregular Heart Sounds: + murmur; no gallop Vessels: no JVD Extremities: + edema (trace); no calf tenderness Gastrointestinal (Abdomen): normal bowel sounds, soft, nontender, no hepatosplenomegaly Skin: + rash (chronic venous stasis changes of lower extremities) Psychiatric: Orientation: alert and oriented x 3 Results & Data Laboratory Results Laboratory Results - last 24 hr 07/26/18 07/26/18 07/26/18 06:22 08:56 08:56 WBC 7.68 RBC 3.08 L Hgb 9.6 L Hct 31.3 L MCV 101.6 H MCH 31.2 MCHC 30.7 L RDW Std Deviation 79.2 H RDW Coeff of Pedro Luis 21.7 H Plt Count 273 MPV 10.4 Sodium 144 Potassium 4.4 Chloride 112 H Carbon Dioxide 27 Anion Gap 5.0 BUN 23 H Creatinine 1.16 Est Cr Clr Drug Dosing 56.3 Est GFR ( Amer) 70.5 Est GFR (Non-Af Amer) 60.8 BUN/Creatinine Ratio 20.1 H Glucose 137 H Calcium 8.9 Stl C. diff Tox B Gene Negative Cdiff Gene
[2018-07-27] MEDS: LEVOTHYROXINE SODIUM 75 MCG TABLET PO SCH (05:57)
--- NOTE | 2018-07-27 08:11 | XRay Report ---
XR chest 1V portable CLINICAL HISTORY: effusion dyspnea COMPARISON STUDY: 07/21/2018 FINDINGS: Moderate stable cardiomegaly. Slight increase in volume of right effusion. Unchanged left b asilar atelectatic change. No significant pneumothorax. IMPRESSION: 1. Slight increase in volume of right pleural effusion. 2. Stable left basilar atelectatic change. 3. No significant pneumothorax. The above report was generated using voice recognition software. It may contain grammatical, syntax or spelling errors. Electronically signed by: Kentrell Frances M.D. 07/27/2018 8:10 AM
[2018-07-27] MEDS: PARoxetine HCl 10 MG TAB PO SCH (09:14)
[2018-07-27] MEDS: METHADONE HCL 5 MG TAB PO SCH ×2 (09:14→21:27)
[2018-07-27] MEDS: POTASSIUM CHLORIDE 20 MEQ TABCR PO SCH ×2 (09:14→17:07)
[2018-07-27] MEDS: ATENOLOL 25 MG TABLET PO SCH (09:15)
[2018-07-27] MEDS: SIMVASTATIN 40 MG TAB PO SCH (09:15)
[2018-07-27] MEDS: CALCITRIOL 0.25 MCG CAPSULE PO SCH (09:15)
[2018-07-27] MEDS: CHOLECALCIFEROL 1,000 UNITS TAB PO SCH (09:16)
[2018-07-27 09:48] LABS: Hematocrit (blood only) 29.6 % (42-52); Hemoglobin 9.2 g/dL (14.0-18.0); Mean Corpuscular Hgb Conc 31.1 g/dL (32-36); Mean Corpuscular Volume 98.3 fL (80-100); Mean Platelet Volume 9.5 fL (7.4-10.4); Platelet Count 249 K/uL (130-400); RDW Coefficient of Variation 21.2 % (11.5-14.5); Red Blood Count 3.01 M/uL (4.7-6.1); White Blood Count 7.25 K/uL (4.8-10.8)
[2018-07-27 10:12] LABS: BUN Creatinine Ratio 18.5 (10-20); Calcium 8.9 mg/dl (8.5-10.1); Creatinine Clr Calc Pharmacy 56.2 ml/min; Est GFR (African American) 69.1; Est GFR (Non-African American) 59.6; Potassium 4.6 mmol/L (3.5-5.1)
--- NOTE | 2018-07-27 11:08 | Infectious Disease Progress Nt ---
Date of Service July 27, 2018 Assessment & Plan (1) Sepsis due to methicillin resistant Staphylococcus aureus: no clear source, continued septicemia. remains on rocephin, will need 6 weeks from first negative culture 1/2 sets 07/20 + will repeat today. If negative, will need picc, and 6 weeks IV rocephin. pleural fluid culture negative but had multiple days of IV prior to drainage, may have sterilized fluid. will need weekly cmp, cbc, esr while on abx. Subjective pt remains on ctx. tolerating well. 07/22 1/2 cultures MSSA, 07/24 negative to date x 2. Spoke with primary, likely LISS. afebrile. Results & Data Vital Signs (Past 12 Hours) Vital Signs Temp Pulse Resp BP BP Pulse Ox 07/27/18 08:42 36.9 C 92 H 18 150/79 H 96 07/27/18 05:04 36.8 C 70 20 154/80 H 100 07/27/18 00:48 37.1 C 76 18 142/84 H 95 Laboratory Results Microbiology 07/20/18 15:15 Pleural Fluid Fungal Smear - Final 07/20/18 15:15 Pleural Fluid Fungal Culture - Preliminary No yeast or fungus isolated - Report 1, Additional Report to Follow. 07/20/18 15:15 Pleural Fluid Acid Fast Bacilli Smear - Final 07/20/18 15:15 Pleural Fluid Acid Fast Bacilli Culture - Preliminary No Acid-Fast Bacilli Isolated - Report 1, Additional Report to Follow. 07/22/18 09:22 Blood Blood Culture - Preliminary Staphylococcus aureus 07/24/18 10:54 Blood Blood Culture - Preliminary No growth to date. 07/24/18 10:49 Blood Blood Culture - Preliminary No growth to date. 07/20/18 08:36 Blood Blood Culture - Final No growth 07/20/18 15:15 Pleural Fluid Gram Stain - Final 07/20/18 15:15 Pleural Fluid Aerobic and Anaerobic Culture - Final No growth 07/22/18 09:10 Blood Blood Culture - Preliminary No growth to date. 07/18/18 15:44 Blood Blood Culture - Final Staphylococcus aureus 07/20/18 08:45 Blood Blood Culture - Final Staphylococcus aureus 07/17/18 20:55 Blood Blood Culture - Final Staphylococcus aureus 07/17/18 20:45 Blood Blood Culture - Final Staphylococcus aureus 07/18/18 15:57 Blood Blood Culture - Final Staphylococcus aureus 07/16/18 15:12 Blood Blood Culture - Final Staphylococcus aureus 07/16/18 15:09 Blood Blood Culture - Final Staphylococcus aureus 07/17/18 04:55 Urine,Clean Catch Urine Culture - Final No growth - less than 1,000 colonies/mL.
--- NOTE | 2018-07-27 15:26 | Consultation Report ---
DATE OF CONSULTATION: 07/27/2018 INPATIENT CARDIOLOGY CONSULTATION CONSULTATION REQUESTED BY: Dr. Paz. REASON FOR CONSULTATION: MRSA sepsis with questionable need for transesophageal echocardiogram. HISTORY OF PRESENT ILLNESS: Mr. Mejia is a very pleasant, yet very medically complex 77-year-old gentleman who presented to [facility] on 07/16/2018 with complaints of weakness and rib pain after a fall. The patient was admitted, initially treated for possible pneumonitis and then sepsis. His blood cultures did show MRSA in the blood and a transesophageal echocardiogram was performed that did not show any significant cardiac lesions; however, given his persistence of blood cultures, question for transesophageal echocardiogram necessity was made. Currently, the patient states he is feeling better, still feels tired and weak, but denies any chest pain, shortness of breath, palpitations, lightheadedness, dizziness, or syncope. He is not having any fevers or chills recently and his appetite is also improving. PAST SURGICAL HISTORY: 1. Cholecystectomy. 2. Tunneled catheter placement and subsequent removal. 3. Laminectomy. 4. PCI with drug-eluting stent to the circumflex with mild residual disease 2010. MEDICAL ILLNESSES: 1. Chronic right-sided heart failure with severe tricuspid regurgitation. 2. Pulmonary hypertension. 3. Chronic AFib, no longer an anticoagulation candidate given frequent falls. 4. Coronary artery disease. 5. Hypertension. 6. Obstructive sleep apnea. 7. Chronic kidney disease. 8. Anemia. 9. Recent pneumothorax. 10. Pleural effusion, status post thoracentesis. 11. Pulmonary nodules. 12. Hypothyroidism. 13. History of tobacco abuse. FAMILY HISTORY: Noncontributory. SOCIAL HISTORY: The patient is a former smoker. Denies any alcohol or recreational drug use. REVIEW OF SYSTEMS: As per HPI. All other review of systems reviewed and negative at this time. ALLERGIES: 1. ADHESIVE TAPE. 2. THIMEROSAL. MEDICATIONS: Currently: 1. Methadone b.i.d. 2. Digoxin 0.0625 mg daily. 3. Simvastatin 40 mg daily. 4. Atenolol 12.5 mg daily. 5. Potassium chloride daily. 6. Levoxyl daily. 7. IV Rocephin. PHYSICAL EXAMINATION: VITALS: Temperature 36.7, pulse 75, respiratory rate 12, blood pressure 123/76. GENERAL: Awake, alert, oriented x3 in no acute distress, frail and cachectic in appearance. HEENT: Normocephalic, atraumatic. Pupils equal, round, reactive to light and accommodation. Extraocular muscles intact. Anicteric sclerae. Moist mucous membranes. Poor dentition. CARDIOVASCULAR: Regular. Positive S4. Normal S1 and S2. No S3. 4/6 mid to late systolic ejection murmur greatest at the left sternal border midclavicular line, fifth intercostal space without radiation, no rubs. PULMONARY: Scattered rhonchi. No rales or wheezing. ABDOMEN: Bowel sounds x4, soft. No rebound, guarding, or tenderness. No organomegaly. EXTREMITIES: No clubbing, cyanosis or edema. +2 pedal pulses bilaterally. SKIN: Warm and dry. TEST RESULTS: Normal left ventricular chamber size with mild concentric LVH, normal LV systolic function, EF 65-70%, moderate left atrial enlargement, severe right atrial enlargement, moderate aortic valve sclerosis without stenosis, mild aortic regurgitation, mild mitral valve annular calcification with mild thickening of the mitral valve leaflets. No vegetations visualized. Moderate to severe mitral regurgitation. Tricuspid valve leaflets are thickened without visualized vegetations, moderate tricuspid regurgitation, at least moderate elevation of pulmonary pressures. IMPRESSION: 1. MRSA bacteremia. 2. Chronic right-sided heart failure. 3. Pulmonary hypertension. 4. Coronary artery disease. 5. History of tobacco abuse. 6. Obstructive sleep apnea. 7. Chronic atrial fibrillation, not an anticoagulation candidate. RECOMMENDATIONS: It was my pleasure to see Mr. Mejia in consultation today. Given the patient's medical complexity and frailty, I believe that the risks of a transesophageal echocardiogram outweigh the benefits at this time and instead would recommend treating as per infectious disease recommendations. This was discussed with the patient and he agrees, so no further cardiac testing or intervention is necessary at this time.
[2018-07-27] MEDS: DIGOXIN 0.125 MG TAB PO SCH (17:06)
--- NOTE | 2018-07-27 17:48 | Progress Note ---
DATE: 07/27/2018 Mr. Mejia was seen today on 07/27/2018. He remains on room air; however, his x-ray shows that he is reaccumulating fluid. His white count still is only 7250. His hemoglobin is rather stable at 9.2. I think he has a small amount of fluid on the right, which is increased. However, he looks so much better that I do not think I would do anything about it at this point. This is a benign transudate. His blood cultures have been sterile since the .
--- NOTE | 2018-07-27 21:37 | Hospitalist Progress Note ---
Date of Service July 27, 2018 Assessment & Plan (1) Bacteremia: WBC elevated, but did not meet criteria for sepsis. Multiple blood cultures from 07/17 - 07/18 growing Staph aureus, methicillin resistant. Source not clear. Echocardiogram 07/18 did not show any apparent valvular vegetations. ID consulted. Receiving IV ceftriaxone. Repeat blood culture from 07/22 growing Staph aureus. Repeat blood culture from 07/24 negative so far. Considered LISS for further evaluation. Discussed with Cardiology; felt that best to avoid invasive procedures due to increased risk. Needs PICC once bacteremia cleared. (2) Elevated troponin: Serum troponin as high as 0.072. No anginal symptoms. Elevated troponin attributed to infection / demand ischemia. (3) Right-sided heart failure: Furosemide held due to KATELYN. Follow. (4) Atrial fibrillation: Had bradycardia as low as 45. Digoxin level 1.0. Atenolol dose decreased. Continue digoxin. No anticoagulation due to chronic GI bleeding. (5) Bradycardia: Had bradycardia as low as 45. Atenolol dose decreased. (6) Pneumonia: Chest x-ray and CT demonstrated infiltrate at right base with a right pleural effusion. Receiving IV antibiotics- currently ceftriaxone. (7) Pneumothorax: Small pneumothorax noted on CT chest. Status post falls with right rib fractures. (8) Pleural effusion: Moderate right pleural effusion and small left pleural effusion noted on CT. Associated with right rib fractures and infiltrate right base. Thoracentesis performed- cultures and cytology negative. (9) Pulmonary nodules: Pulmonary nodules up to [address] chest. Follow per guidelines. (10) GERD (gastroesophageal reflux disease): Continue ranitidine. (11) Acute kidney injury superimposed on CKD: Serum creatinine 2.25 at time of admission. Acute kidney injury superimposed on CKD. KATELYN probably due to combination of infection + volume depletion. Nephrology consulted. Furosemide held. Creatinine today = 1.18. Follow. (12) Hypothyroidism: TSH minimally elevated at 4.630. Continue levothyroxine. (13) Anemia: Anemia 7.7 at time of admission. Stools heme +. Received 2 units pRBC's. Hgb today = 9.2. Follow. Check Fe studies, B12, folate. History of multiple myeloma- check SPEP. (14) History of fall: History of multiple falls. PT / OT. (15) DVT prophylaxis: No anticoagulants because of heme positive stools. SCD's. Ambulate. (16) Discharge planning issues: To be determined. Anticipate need skilled care or inpatient rehab. Family Medicine follow-up with Dr. Marin. Subjective Recheck for multiple problems. Pt seen in his room around 1530. visiting. No new problems. Still requiring 2-person assist for transfers and ambulation. No fever. Occasional cough. No shortness of breath. No chest pain. No nausea or vomiting. No diarrhea. No urinary symptoms. Review of systems as noted above. Physical Exam Constitutional: no acute distress Respiratory: no respiratory distress Auscultation: lungs clear to auscultation bilaterally Cardiovascular: Rate/Rhythm: + irregularly irregular Heart Sounds: + murmur; no gallop Vessels: no JVD Extremities: + edema (trace); no calf tenderness Gastrointestinal (Abdomen): normal bowel sounds, soft, nontender, no hepatosplenomegaly Skin: + rash (chronic venous stasis changes of lower extremities) Psychiatric: Orientation: alert and oriented x 3 Results & Data Vital Signs (Past 12 Hours) Vital Signs Temp Pulse Pulse Resp BP Pulse Ox 07/27/18 19:01 36.7 C 61 18 142/73 H 96 07/27/18 17:06 72 07/27/18 16:30 36.9 C 69 20 137/82 97 07/27/18 16:00 62 07/27/18 12:00 36.7 C 75 22 123/76 100 Laboratory Results Laboratory Results - last 24 hr 07/27/18 07/27/18 09:36 09:36 WBC 7.25 RBC 3.01 L Hgb 9.2 L Hct 29.6 L MCV 98.3 MCH 30.6 MCHC 31.1 L RDW Std Deviation 76.0 H RDW Coeff of Pedro Luis 21.2 H Plt Count 249 MPV 9.5 Sodium 142 Potassium 4.6 Chloride 109 H Carbon Dioxide 31 Anion Gap 2.0 L BUN 22 H Creatinine 1.18 Est Cr Clr Drug Dosing 56.2 Est GFR ( Amer) 69.1 Est GFR (Non-Af Amer) 59.6 BUN/Creatinine Ratio 18.5 Glucose 116 H Calcium 8.9
[2018-07-28] MEDS: LEVOTHYROXINE SODIUM 75 MCG TABLET PO SCH (05:54)
[2018-07-28 06:11] LABS: Hematocrit (blood only) 29.2 % (42-52); Hemoglobin 9.3 g/dL (14.0-18.0); Mean Corpuscular Hgb Conc 31.8 g/dL (32-36); Mean Corpuscular Volume 97.7 fL (80-100); Mean Platelet Volume 9.6 fL (7.4-10.4); Platelet Count 255 K/uL (130-400); RDW Coefficient of Variation 20.8 % (11.5-14.5); RDW Standard Deviation 74.2 fL (36.4-46.3); Red Blood Count 2.99 M/uL (4.7-6.1); White Blood Count 5.98 K/uL (4.8-10.8)
[2018-07-28 06:50] LABS: BUN Creatinine Ratio 23.4 (10-20); Calcium 8.8 mg/dl (8.5-10.1); Creatinine Clr Calc Pharmacy 63.8 ml/min; Est GFR (African American) 80.5; Est GFR (Non-African American) 69.4; Potassium 5.2 mmol/L (3.5-5.1)
[2018-07-28 08:06] LABS: Folate (Folic Acid) 6.39 ng/ml (>5.38)
[2018-07-28] MEDS: PARoxetine HCl 10 MG TAB PO SCH (08:20)
[2018-07-28] MEDS: SIMVASTATIN 40 MG TAB PO SCH (08:20)
[2018-07-28] MEDS: ATENOLOL 25 MG TABLET PO SCH (08:20)
[2018-07-28] MEDS: CHOLECALCIFEROL 1,000 UNITS TAB PO SCH (08:21)
[2018-07-28] MEDS: POTASSIUM CHLORIDE 20 MEQ TABCR PO SCH ×2 (08:21→17:16)
[2018-07-28] MEDS: METHADONE HCL 5 MG TAB PO SCH ×2 (08:24→20:11)
--- NOTE | 2018-07-28 11:02 | Infectious Disease Progress Nt ---
Date of Service July 28, 2018 Assessment & Plan (1) Sepsis due to methicillin resistant Staphylococcus aureus: no clear source, continued septicemia. remains on rocephin, will need 6 weeks from first negative, 07/24 cultures remain negative. will need picc, and 6 weeks IV rocephin. pleural fluid culture negative but had multiple days of IV prior to drainage, may have sterilized fluid. will need weekly cmp, cbc, esr while on abx. Subjective Rocephin stopped. It was restarted today. 07/24 cultures remain negative. pt remains on ctx. tolerating well. 07/22 1/2 cultures MSSA, 07/24 negative to date x 2. Spoke with primary, likely LISS. afebrile. Results & Data Vital Signs (Past 12 Hours) Vital Signs Temp Pulse Pulse Resp BP Pulse Ox 07/28/18 07:27 36.2 C L 67 18 158/73 H 97 07/28/18 04:40 37.1 C 74 20 140/73 98 07/28/18 00:00 37.1 C 69 75 20 159/78 H 96 Laboratory Results Microbiology 07/22/18 09:22 Blood Blood Culture - Final Staphylococcus aureus 07/22/18 09:10 Blood Blood Culture - Final No growth 07/20/18 15:15 Pleural Fluid Fungal Smear - Final 07/20/18 15:15 Pleural Fluid Fungal Culture - Preliminary No yeast or fungus isolated - Report 1, Additional Report to Follow. 07/20/18 15:15 Pleural Fluid Acid Fast Bacilli Smear - Final 07/20/18 15:15 Pleural Fluid Acid Fast Bacilli Culture - Preliminary No Acid-Fast Bacilli Isolated - Report 1, Additional Report to Follow. 07/24/18 10:54 Blood Blood Culture - Preliminary No growth to date. 07/24/18 10:49 Blood Blood Culture - Preliminary No growth to date. 07/20/18 08:36 Blood Blood Culture - Final No growth 07/20/18 15:15 Pleural Fluid Gram Stain - Final 07/20/18 15:15 Pleural Fluid Aerobic and Anaerobic Culture - Final No growth 07/18/18 15:44 Blood Blood Culture - Final Staphylococcus aureus 07/20/18 08:45 Blood Blood Culture - Final Staphylococcus aureus 07/17/18 20:55 Blood Blood Culture - Final Staphylococcus aureus 07/17/18 20:45 Blood Blood Culture - Final Staphylococcus aureus 07/18/18 15:57 Blood Blood Culture - Final Staphylococcus aureus 07/16/18 15:12 Blood Blood Culture - Final Staphylococcus aureus 07/16/18 15:09 Blood Blood Culture - Final Staphylococcus aureus 07/17/18 04:55 Urine,Clean Catch Urine Culture - Final No growth - less than 1,000 colonies/mL.
[2018-07-28] MEDS: cefTRIAXone SODIUM 2,000 MG in DEXTROSE 5% 50 ML IV SCH (11:57)
[2018-07-28 14:33] LABS: Albumin 2.3 G/DL (3.8-4.8); Alpha 1 Globulin 0.5 G/DL (0.2-0.3); Alpha 2 Globulin 0.6 G/DL (0.5-0.9); Beta-1-Globulin 0.3 G/DL (0.4-0.6); Beta-2-Globulin 0.4 G/DL (0.2-0.5); Monoclonal Protein Band 1 DNR G/DL (NOT DETECTED); Monoclonal Protein Band 2 DNR G/DL (NOT DETECTED); Monoclonal Protein Band 3 DNR G/DL (NOT DETECTED); Total Protein 5.1 G/DL (6.2-8.3)
[2018-07-28] MEDS: DIGOXIN 0.125 MG TAB PO SCH (17:12)
--- NOTE | 2018-07-28 17:40 | Progress Note ---
DATE: 07/28/2018 The patient was seen today. From a clinical standpoint, the patient, I think looks better. His methicillin sensitive staph bacteremia appears to be responding to antibiotics. He is afebrile. He has a normal white count. He is on room air with 97% saturations. He did have a chest x-ray yesterday, which showed that he had slight increase in his right pleural effusion, but otherwise is unchanged. I will discuss this case with Infectious Disease. He does have infiltrates on a CT scan in the right lung, but I am not certain that a bronchoscopy would be helpful. I will discuss this with Infectious Disease. ROGELIO
--- NOTE | 2018-07-28 19:33 | Hospitalist Progress Note ---
Date of Service July 28, 2018 Assessment & Plan (1) Bacteremia: Present on admission with weakness, lethargy and confusion Elevated WBC and procalcitonin on admission Blood cx positive for gram positive cocci Received Levaquin and Rocephin in the ER IV Zosyn and Vanco discontinued ID on board recommended to continue Rocephin Repeat 4th blood cx growth gram positive cocci ECHO showed no evidence for vegetation Will discussed with thoracic surgery about the loculated pleural effusion since blood cx remind positive Repeat 5th set of blood cx no growth so far If blood cx remains negative, will need to place a PICC for IV abx infusion x 6 weeks with Rocephin as per ID Will need weekly weekly cmp, cbc, esr while on abx. (2) Pneumonitis: Right Pleural effusion CT CHEST showed Pleural parenchymal scarring of the right lung base with areas of suggested round atelectasis. bibasilar opacities are suggestive of probable pneumonitis with bronchiolitis. CXR showed Infiltrate at the right lung base with loculated right pleural effusion. s/p right thoracentesis done by Dr. Valle Pleural fluid gram and cx sent showed no organism Continue monitor closely (3) Anemia: Hgb on admission 7.7 Received 2 unit PRBC Hgb 10.3 today Monitor CBC (4) Pneumothorax: Multiple Rib fracture CT CHEST showed Small right-sided pneumothorax of unknown etiology.No acute rib fracture identified. Saturating well on room air Thoracic surgery on board (5) Weakness: Possible related to acute illness and anemia CT Head negative PT/OT Fall precaution (6) Bradycardia: HR has been stable Atenolol on hold Stable (7) History of fall: (8) Multiple fractures of ribs with routine healing: (9) Fracture of sternum with routine healing: Patient with history of multiple falls, last fall being on 07/01/18. At that point time he had right-sided rib pain and sternal pain. Had outpatient sternal x-ray on 06/29/18 which showed possible mid sternal fracture. Patient reports since has had decreased rib and sternal pain and is denying any pain today. Continue incentive spirometry Fall precaution Stable (10) Elevated troponin: Mostly demand ischemia due to anemia in the setting of CKD Troponin trending down EKG showed no ischemic changes aspirin on hold due to low Hgb Atenolol on hold due to bradycardia (11) Acute kidney injury superimposed on CKD: Cr: 2.2. Baseline 1.5-1.9 Creatinine on admission 2.29, then 1.37 today Avoid nephrotoxic agents when possible Nephrology on board (12) A-fib: Chronic a-fib. Off anticoagulation secondary to risks outweighing benefits since 03/2018. HR controlled Atenolol on hold due to bradycardia Digoxin level normal (13) Right-sided heart failure: Chronic right sided heart failure Asymptomatic Lasix on hold due to elevated creatinine Continue monitor closely (14) CAD (coronary artery disease): S/P CHARLEE LCx in 2006 continue statin Aspirin and atenolol on hold Stable (15) Hypertension: BP stable Continue to hold lisinopril Monitor BP (16) Hypothyroidism: continue levothyroxine (17) Chronic back pain: continue methadone (18) GARRETT (obstructive sleep apnea): continue Bipap HS Confusion possible related to metabolic encephalopathy CT head showed no acute intracranial abnormality. Age-related atrophy Stable (19) GERD (gastroesophageal reflux disease): continue H2 musa Right Hip wound Continue daily dressing Wound care on board DVT Prophylaxis SCDs due to low hgb CODE STATUS DNR/DNI Disposition Will need PICC line for IV abx infusion x 6 weeks with Rocephin Subjective Pt was seen and examined Sitting in chair with no distress Pt walked in the hallway with therapist Denies any new complaint Physical Exam Physical Exam: General- No acute distress Head- atraumatic Eyes- PERRL, EOMI, ENT- oropharynx clear Neck- supple, no JVD Lungs- Diminished BS Heart- irregular rhythm Abdomen- normal bowel sounds, soft Extremities- no calf tenderness, right hip posterior wound with no drainage Neuro- alert, oriented x 3; PERRL, EOMI; no facial palsy; no dysarthria Skin- warm & dry, multiple bruises Results & Data Vital Signs (Past 12 Hours) Vital Signs Temp Pulse Resp BP Pulse Ox 07/28/18 16:05 36.3 C L 76 18 124/74 97 07/28/18 11:40 36.6 C 75 18 146/84 H
[2018-07-29] MEDS: LEVOTHYROXINE SODIUM 75 MCG TABLET PO SCH (06:32)
[2018-07-29] MEDS: METHADONE HCL 5 MG TAB PO SCH (08:12)
[2018-07-29] MEDS: POTASSIUM CHLORIDE 20 MEQ TABCR PO SCH (08:12)
[2018-07-29] MEDS: PARoxetine HCl 10 MG TAB PO SCH (08:13)
[2018-07-29] MEDS: CALCITRIOL 0.25 MCG CAPSULE PO SCH (08:13)
[2018-07-29] MEDS: CHOLECALCIFEROL 1,000 UNITS TAB PO SCH (08:14)
[2018-07-29] MEDS: SIMVASTATIN 40 MG TAB PO SCH (08:14)
[2018-07-29] MEDS: ATENOLOL 25 MG TABLET PO SCH (08:14)
[2018-07-29 09:48] LABS: BUN Creatinine Ratio 21.9 (10-20); Calcium 8.1 mg/dl (8.5-10.1); Creatinine Clr Calc Pharmacy 58.8 ml/min; Est GFR (African American) 72.8; Est GFR (Non-African American) 62.8; Potassium 4.1 mmol/L (3.5-5.1)
[2018-07-29] MEDS: cefTRIAXone SODIUM 2,000 MG in DEXTROSE 5% 50 ML IV SCH (13:48)
--- NOTE | 2018-07-29 14:16 | Hospitalist Progress Note ---
Date of Service July 29, 2018 Assessment & Plan (1) Bacteremia: Present on admission with weakness, lethargy and confusion Elevated WBC and procalcitonin on admission Blood cx positive for gram positive cocci Received Levaquin and Rocephin in the ER IV Zosyn and Vanco discontinued ID on board recommended to continue Rocephin Repeat 4th blood cx growth gram positive cocci ECHO showed no evidence for vegetation Will discussed with thoracic surgery about the loculated pleural effusion since blood cx remind positive Repeat 5th set of blood cx no growth so far Final Blood cx on 07/24 negative Multiple attempts failed by IV team for PICC and Midline placement IV team was able to get an U/S guided peripheral that can last for about 30 days ID on board and recommended IV abx infusion x 6 weeks with Rocephin Will need weekly weekly cmp, cbc, esr while on abx. (2) Pneumonitis: Right Pleural effusion CT CHEST showed Pleural parenchymal scarring of the right lung base with areas of suggested round atelectasis. bibasilar opacities are suggestive of probable pneumonitis with bronchiolitis. CXR showed Infiltrate at the right lung base with loculated right pleural effusion. s/p right thoracentesis done by Dr. Valle Pleural fluid gram and cx sent showed no organism Case discussed with Dr. Valle, will follow him outpatient in 2 weeks Continue monitor closely (3) Anemia: Hgb on admission 7.7 Received 2 unit PRBC during hospital course Hgb 9.3 Monitor CBC (4) Pneumothorax: Multiple Rib fracture CT CHEST showed Small right-sided pneumothorax of unknown etiology.No acute rib fracture identified. Saturating well on room air Thoracic surgery on board Stable (5) Weakness: Possible related to acute illness and anemia CT Head negative PT/OT Fall precaution (6) Bradycardia: HR has been stable Atenolol decreased to 12.5 mg Stable (7) History of fall: History of multiple falls. PT / OT. (8) Multiple fractures of ribs with routine healing: (9) Fracture of sternum with routine healing: Patient with history of multiple falls, last fall being on 07/01/18. At that point time he had right-sided rib pain and sternal pain. Had outpatient sternal x-ray on 06/29/18 which showed possible mid sternal fracture. Patient reports since has had decreased rib and sternal pain and is denying any pain today. Continue incentive spirometry Fall precaution Stable (10) Elevated troponin: Mostly demand ischemia due to anemia in the setting of CKD Troponin trending down EKG showed no ischemic changes aspirin on hold due to low Hgb Atenolol decreased to 12.5 mg due to bradycardia (11) Acute kidney injury superimposed on CKD: Cr: 2.2. Baseline 1.5-1.9 Creatinine on admission 2.29, then 1.1 today Avoid nephrotoxic agents when possible Nephrology on board (12) A-fib: Chronic a-fib. Off anticoagulation secondary to risks outweighing benefits since 03/2018. HR controlled Continue atenolol 12.5 mg and digoxin Digoxin level normal (13) Right-sided heart failure: Chronic right sided heart failure Asymptomatic Lasix on hold due to elevated creatinine Will decrease Lasix to 20mg BID on discharge Continue monitor closely (14) CAD (coronary artery disease): S/P CHARLEE LCx in 2006 continue statin Continue Aspirin and atenolol Stable (15) Hypertension: BP stable Continue to hold lisinopril Monitor BP (16) Hypothyroidism: continue levothyroxine (17) Chronic back pain: continue methadone (18) GARRETT (obstructive sleep apnea): continue Bipap HS Confusion possible related to metabolic encephalopathy CT head showed no acute intracranial abnormality. Age-related atrophy Stable (19) GERD (gastroesophageal reflux disease): continue H2 musa Right Hip wound Continue daily dressing Wound care on board DVT Prophylaxis SCDs due to low hgb CODE STATUS DNR/DNI Disposition Will need 6 weeks IV abx with Rocephin Subjective Pt was seen and examined Sitting in chair with no distress Pt said that he feels fine He walked with therapy yesterday IV team tried to place a PICC or Midline, but was unable to place one IV team was able to place an u/s guided peripheral that can last about 30 days Denies any chest pain, palpitation, dizziness and SOB Physical Exam Physical Exam: General- No acute distress Head- atraumatic Eyes- PERRL, EOMI, ENT- oropharynx clear Neck- supple, no JVD Lungs- Diminished BS Heart- irregular rhythm Abdomen- normal bowel sounds, soft Extremities- no calf tenderness, right hip posterior wound with no drainage Neuro- alert, oriented x 3; PERRL, EOMI; no facial palsy; no dysarthria Skin- warm & dry, multiple bruises Results & Data Vital Signs (Past 12 Hours) Vital Signs Temp Pulse Resp BP BP Pulse Ox Pulse Ox 07/29/18 11:31 36.4 C L 90 16 136/74 07/29/18 09:52 97 07/29/18 07:07 36.4 C L 76 18 167/73 H 92 07/29/18 03:00 36.7 C 72 18 143/83 H 98
--- NOTE | 2018-07-29 14:38 | Infectious Disease Progress Nt ---
Date of Service July 29, 2018 Assessment & Plan (1) Sepsis due to methicillin resistant Staphylococcus aureus: no clear source, continued septicemia. remains on rocephin, will need 6 weeks from first negative, 07/24 cultures remain negative. will need picc, and 6 weeks IV rocephin. pleural fluid culture negative but had multiple days of IV prior to drainage, may have sterilized fluid. will need weekly cmp, cbc, esr while on abx. Subjective remains on ctx, tolerating well. No LISS due to comorbidities, also negative LISS will not change duration of abx. afebrile. most recent cultures are negative and final. cxr with r effusion. Remains stable on room air. Results & Data Vital Signs (Past 12 Hours) Vital Signs Temp Pulse Resp BP BP Pulse Ox Pulse Ox 07/29/18 11:31 36.4 C L 90 16 136/74 07/29/18 09:52 97 07/29/18 07:07 36.4 C L 76 18 167/73 H 92 07/29/18 03:00 36.7 C 72 18 143/83 H 98 Laboratory Results Microbiology 07/24/18 10:54 Blood Blood Culture - Final No growth 07/24/18 10:49 Blood Blood Culture - Final No growth 07/22/18 09:22 Blood Blood Culture - Final Staphylococcus aureus 07/22/18 09:10 Blood Blood Culture - Final No growth 07/20/18 15:15 Pleural Fluid Fungal Smear - Final 07/20/18 15:15 Pleural Fluid Fungal Culture - Preliminary No yeast or fungus isolated - Report 1, Additional Report to Follow. 07/20/18 15:15 Pleural Fluid Acid Fast Bacilli Smear - Final 07/20/18 15:15 Pleural Fluid Acid Fast Bacilli Culture - Preliminary No Acid-Fast Bacilli Isolated - Report 1, Additional Report to Follow. 07/20/18 08:36 Blood Blood Culture - Final No growth 07/20/18 15:15 Pleural Fluid Gram Stain - Final 07/20/18 15:15 Pleural Fluid Aerobic and Anaerobic Culture - Final No growth 07/18/18 15:44 Blood Blood Culture - Final Staphylococcus aureus 07/20/18 08:45 Blood Blood Culture - Final Staphylococcus aureus 07/17/18 20:55 Blood Blood Culture - Final Staphylococcus aureus 07/17/18 20:45 Blood Blood Culture - Final Staphylococcus aureus 07/18/18 15:57 Blood Blood Culture - Final Staphylococcus aureus 07/16/18 15:12 Blood Blood Culture - Final Staphylococcus aureus 07/16/18 15:09 Blood Blood Culture - Final Staphylococcus aureus 07/17/18 04:55 Urine,Clean Catch Urine Culture - Final No growth - less than 1,000 colonies/mL.
--- NOTE | 2018-08-08 22:27 | Discharge Summary ---
Date of Service July 29, 2018 Admission HPI Per Admitting Provider Pt is 77 y/o M with PMH CAD s/p CHARLEE LCx in 2006, chronic right sided CHF, anemia of chronic disease, HTN, dyslipidemia, hypothryoidism, CKD III, multiple myeloma s/p chemo & radiation in 1991, atrial fibrillation off coumadin, h/o PE presented to ER with complaint of weakness, confusion, lethargy today. Patient with history of multiple falls, last fall being on 07/01/18. At that point time he had right-sided rib pain and sternal pain. Had outpatient sternal x-ray on 06/29/18 which showed possible mid sternal fracture. Patient reports since has had decreased rib and sternal pain and is denying any pain today. Home health, PT, OT have been following patient in his home. Patient reports had therapy today and it was noted that had low BP and was sent to ER. Pt having chronic wounds to bilateral legs and having wound care at home. Patient denies any dizziness, syncope, fever, chills. Denies any increased lower extremity edema. History anemia had Procrit on 07/13/18. Had PRBC transfusion in 03/2018, patient a nd family unsure if any more recent transfusions. Denies fever/chills, diaphoresis, N/V/D/C, ARGUETA, vision changes, neck pain, CP, SOB, orthopnea, palpitations, cough, sore throat, choking, otalgia, rhinorrhea, abdominal pain, p urinary symptoms, melena, hematochezia, epistaxis, hematuria. Admission Exam Per Admitting Provider General: chronic ill appearing, no acute distress Head: normocephalic, atraumatic Eyes: PERRL, EOM's intact, pale conjunctiva, anicteric ENT: normal inspection external ears, nose, mucous membranes moist Neck: supple, trachea midline, non-tender Lungs: clear, no respiratory distress, no wheezing/rhonchi/rales CV: irregularly irregular, no pretibial edema Abd: normal BS, soft, non-tender Ext: no cyanosis, no calf tenderness Neuro: A&O x 3, no focal deficits noted, normal affect Skin: warm, dry, pale, ulcers to bilateral lower legs Principal Diagnosis Bacteremia Elevated Troponin Anemia Pneumothorax Bradycardia Weakness Hx Fall Discharge Exam General- No acute distress Head- atraumatic Eyes- PERRL, EOMI, ENT- oropharynx clear Neck- supple, no JVD Lungs- Diminished BS Heart- irregular rhythm Abdomen- normal bowel sounds, soft Extremities- no calf tenderness, right hip posterior wound with no drainage Neuro- alert, oriented x 3; PERRL, EOMI; no facial palsy; no dysarthria Skin- warm & dry, multiple bruises Discharge Data Allergies Allergy/AdvReac Type Severity Reaction Status Date / Time adhesive Allergy Unknown RASH AND Verified 07/16/18 11:44 BLISTER No Known Drug Allergies Allergy Unknown . Verified 07/16/18 11:44 Consultations 07/16/18 14:26 ED Decision to Admit Stat 07/16/18 18:45 Consult Case Management - Discharge Planning Routine Consult Nephrology Routine Consult Thoracic Surgery Routine 07/17/18 10:43 Consult Infectious Diseases Routine 07/23/18 09:03 Consult Gastroenterology Routine 07/27/18 07:00 Consult Cardiology Routine Ordered Studies 07/16/18 11:25 CT head/brain wo con Stat 07/16/18 13:00 CT chest wo con Stat 07/20/18 15:21 CT chest wo con Stat XR chest 1V portable CLINICAL HISTORY: 77 years-old Male presenting with weakness. TECHNIQUE: Portable upright AP view of the chest was obtained. COMPARISON: None. FINDINGS: Atherosclerosis of the aortic arch. Cardiac silhouette enlarged. Architectural distortion of the lung bases, right greater than left. Elevation of the right hemidiaphragm may be present. Extensive opacity at the right lung base with a suspected loculated small right pleural effusion. No large pneumothorax. Prominent skin folds evident. Multiple right lateral rib fractures. Partially visualized lumbar fusion hardware. Upper abdomen normal. IMPRESSION: 1. Infiltrate at the right lung base with loculated right pleural effusion. Given the architectural distortion of the lung bases, right greater than left, this may be chronic. However, superimposed infection cannot be excluded. 2. Multiple right lateral rib fractures. Correlate for point tenderness to assess for acuity. Given the presence of these fractures, an acute setting the right pleural abnormality may represent extrapleural hematoma or hemothorax. Electronically signed by: Efren Milton M.D. 07/16/2018 11:47 AM Dictated: 07/16/18 1145 Transcribed: 07/16/[address] head/brain wo con CT DOSE: 921.40 mGy.cm HISTORY: Mental status change fall TECHNIQUE: Multiaxial CT images of the head were performed without the use of intravenous contrast. A dose lowering technique was utilized adhering to the principles of ALARA. Comparison: 06/03/2018 Findings: The paranasal sinuses and mastoid air cells are clear. The calvarium and skull base are intact. The ventricles and sulci are within normal limits. There is no mass, hematoma, midline shift, or acute infarct. Age-related atrophy Impression: No acute intracranial abnormality. Age-related atrophy The above report was generated using voice recognition software. It may contain grammatical, syntax or spelling errors. Electronically signed by: Kentrell Frances M.D. 07/16/2018 12:07 PM Dictated: 07/16/18 1204 Transcribed: 07/16/[address] chest wo con CT DOSE: 236.89 mGy.cm CLINICAL HISTORY: 77 years-old Male with fall ? hematoma and rib fractures. Acute right-sided rib pain status post fall with associated rib fractures. TECHNIQUE: Multiaxial CT images of the chest were performed without contrast. A dose lowering technique was utilized adhering to the principles of ALARA. COMPARISON: Chest radiograph of same day FINDINGS: Study is limited without the use of contrast. A large thyroid nodule. Prominent paratracheal lymph nodes measuring up to 9 mm, possibly physiologic. Moderate cardiomegaly. Coronary arterial and aortic annular calcifications. Fusiform dilation about the ascending thoracic aorta, 4.2 x 4.2 cm. Calcificatio n the thoracic aorta and proximal great vessels. Dilation of the main pulmonary artery measures up to 3.4 cm transversely. Trace left and small to moderate right pleural effusions. The right-sided pl eural fluid is predominantly simple and only minimally loculated. There is a small right-sided pneumothorax with pleural separation of 9 mm at the apex. Pleural separation is also noted about the medial right lung and right lung base. Left diaphragmatic elevation. Mixed bibasilar groundglass and consolidative opacities. Tree-in-bud nodules of the left lung base. Mild emphysema. There are scattered nodular foci about the lung bases up to 6 mm within the lingula. Areas of subpleural reticulation of the right lung base with subpleural consolidation containing calcifications noted within the right lower lobe measuring up to 3.9 x 2.3 cm suggestive of probable pleural parenchymal scarring with round atelectasis. 3 mm solid nodule noted on the right on image 188 series 4. Central airways appear patent. Small volume of abdominal ascites. Diffuse body wall edema. Degenerative changes of the shoulders and spine. Multiple healed remote right-sided rib fractures. There is no acute fracture identified. 30% anterior endplate compression deformity of the T11 vertebral body without retropulsion, age-indeterminate. Fusion hardware at T12 and L1 noted. Chronic appearing displaced mid sternal fracture. IMPRESSION: 1. Small right-sided pneumothorax of unknown etiology. 2. Multiple healed remote right-sided rib fractures with chronic appearing mid sternal fracture. No acute rib fracture identified. 3. Fusiform dilation about the ascending thoracic aorta, 4.2 x 4.2 cm. 4. Trace left and small to moderate right pleural effusions. 5. Pleural parenchymal scarring of the right lung base with areas of suggested round atelectasis. Additional bibasilar opacities are suggestive of probable pneumonitis with bronchiolitis. 6. There are a few scattered nodular foci as above measuring up to 6 mm within the lingula. 7. Mild emphysema. 8. Age-indeterminate 30% anterior endplate compression deformity of T11, likely chronic. 9. Additional findings as above. Please refer to below summary of Fleischner criteria recommendations for follow- up of incidental CT nodules (H Catarino, Guidelines for management of small pulmonary nodules detected on CT scans: A statement from the Fleischner Soc iety, Radiology 237: [phone].) SOLID NODULES Multiple nodules size: <6 mm * Low risk patients: no routine follow-up * high risk patients: optional CT at 12 months Note: newly detected indeterminate nodule in persons 35 years of age or older. * Low risk patients: minimal or absent history of smoking and/or other known risk factors * high risk patients: history of smoking or of other known risk factors (e.g. first degree relative with lung cancer, or exposure to asbestos, radon, uranium) * if a nodule up to 8 mm is partly solid or is ground glass further follow-up is required after 24 months to exclude possible slow growing adenocarcinoma (DEVIKA) The above report was generated using voice recognition software. It may contain grammatical, syntax or spelling errors. Electronically signed by: Ruben Luna M.D. 07/16/2018 2:20 PM Dictated: 07/16/18 2237 Transcribed: 07/16/18 1403 SINGLE VIEW CHEST CLINICAL HISTORY: Pneumothorax. FINDINGS: An AP, portable, upright chest radiograph is compared to chest x-ray and chest CT dated 07/16/2018. The examination is degraded by portable technique and patient rotation. The heart is enlarged and there is atherosclerotic calcification of the thoracic aorta. The pulmonary vasculature is noncongested. Emphysema is again noted. Mild loss in the right lung is again noted. There are right larger than left pleural effusions with bibasilar consolidation. No pneumothorax is seen. The skeletal structures are osteopenic. There are numerous healed right-sided rib fractures. IMPRESSION: 1. No pneumothorax is identified. The trace pneumothorax seen on the 07/16/[address] is not apparent by x-ray. 2. Cardiomegaly, emphysema, and volume loss in the right lung are similar to previous. 3. There are right larger left pleural effusions with bibasilar consolidation. This is also unchanged. Electronically signed by: Vance Novoa M.D. 07/18/2018 7:17 AM Dictated: 07/18/18 0715 Transcribed: 07/18/18 0715 XR chest 1V portable CLINICAL HISTORY: effusion dyspnea COMPARISON STUDY: 07/21/2018 FINDINGS: Moderate stable cardiomegaly. Slight increase in volume of right effusion. Unchanged left basilar atelectatic change. No significant pneumothorax. IMPRESSION: 1. Slight increase in volume of right pleural effusion. 2. Stable left basilar atelectatic change. 3. No significant pneumothorax. The above report was generated using voice recognition software. It may contain grammatical, syntax or spelling errors. Electronically signed by: Kentrell Frances M.D. 07/27/2018 8:10 AM Dictated: 07/27/18 0809 Transcribed: 07/27/18 0809 XR chest 1V portable CLINICAL HISTORY: effusion COMPARISON STUDY: 07/20/2018 FINDINGS: The heart remains enlarged. There is pulmonary emphysema. There are persistent bilateral pleural effusions. There are bibasilar airspace opacities with stable cystic changes at the right lung base. This may indicate a tiny loculated hydropneumothorax[ IMPRESSION: Stable findings. Cardiomegaly. Small bilateral pleural effusions, and basilar airspace opacities. Electronically signed by: Víctor Stephens M.D. 07/21/2018 6:59 AM Dictated: 07/21/18 0657 Transcribed: 07/21/18 0657 Hospital Course (1) Bacteremia: Present on admission with weakness, lethargy and confusion Elevated WBC and procalcitonin on admission Blood cx positive for gram positive cocci Received Levaquin and Rocephin in the ER IV Zosyn and Vanco discontinued ID on board recommended to continue Rocephin Repeat 4th blood cx growth gram positive cocci ECHO showed no evidence for vegetation Will discussed with thoracic surgery about the loculated pleural effusion since blood cx remind positive Repeat 5th set of blood cx no growth so far Final Blood cx on 07/24 negative Multiple attempts failed by IV team for PICC and Midline placement IV team was able to get an U/S guided peripheral that can last for about 30 days ID on board and recommended IV abx infusion x 6 weeks with Rocephin Will need weekly weekly cmp, cbc, esr while on abx. (2) Pneumonitis: Right Pleural effusion CT CHEST showed Pleural parenchymal scarring of the right lung base with areas of suggested round atelectasis. bibasilar opacities are suggestive of probable pneumonitis with bronchiolitis. CXR showed Infiltrate at the right lung base with loculated right pleural effusion. s/p right thoracentesis done by Dr. Valle Pleural fluid gram and cx sent showed no organism Case discussed with Dr. Valle, will follow him outpatient in 2 weeks Continue monitor closely (3) Anemia: Hgb on admission 7.7 Received 2 unit PRBC during hospital course Hgb 9.3 Monitor CBC (4) Pneumothorax: Multiple Rib fracture CT CHEST showed Small right-sided pneumothorax of unknown etiology.No acute rib fracture identified. Saturating well on room air Thoracic surgery on board Stable (5) Weakness: Possible related to acute illness and anemia CT Head negative PT/OT Fall precaution (6) Bradycardia: HR has been stable Atenolol decreased to 12.5 mg Stable (7) History of fall: History of multiple falls. PT / OT. (8) Multiple fractures of ribs with routine healing: (9) Fracture of sternum with routine healing: Patient with history of multiple falls, last fall being on 07/01/18. At that point time he had right-sided rib pain and sternal pain. Had outpatient sternal x-ray on 06/29/18 which showed possible mid sternal fracture. Patient reports since has had decreased rib and sternal pain and is denying any pain today. Continue incentive spirometry Fall precaution Stable (10) Elevated troponin: Mostly demand ischemia due to anemia in the setting of CKD Troponin trending down EKG showed no ischemic changes aspirin on hold due to low Hgb Atenolol decreased to 12.5 mg due to bradycardia (11) Acute kidney injury superimposed on CKD: Cr: 2.2. Baseline 1.5-1.9 Creatinine on admission 2.29, then 1.1 today Avoid nephrotoxic agents when possible Nephrology on board (12) A-fib: Chronic a-fib. Off anticoagulation secondary to risks outweighing benefits since 03/2018. HR controlled Continue atenolol 12.5 mg and digoxin Digoxin level normal (13) Right-sided heart failure: Chronic right sided heart failure Asymptomatic Lasix on hold due to elevated creatinine Will decrease Lasix to 20mg BID on discharge Continue monitor closely (14) CAD (coronary artery disease): S/P CHARLEE LCx in 2006 continue statin Continue Aspirin and atenolol Stable (15) Hypertension: BP stable Continue to hold lisinopril Monitor BP (16) Hypothyroidism: continue levothyroxine (17) Chronic back pain: continue methadone (18) GARRETT (obstructive sleep apnea): continue Bipap HS Confusion possible related to metabolic encephalopathy CT head showed no acute intracranial abnormality. Age-related atrophy Stable (19) GERD (gastroesophageal reflux disease): continue H2 musa Right Hip wound Continue daily dressing Wound care on board DVT Prophylaxis SCDs due to low hgb CODE STATUS DNR/DNI Disposition Will need 6 weeks IV abx with Rocephin Total Time Total Time Spent Total Time Spent (In Minutes): 35 minutes Total Time Includes: Examination of the Patient, Discharge Planning, Medication Reconciliation, Communication With Other Providers and Other Discharge Plan Discharge Items Patient Disposition: Transfer [facility] Reason For Visit: SYMPTOMATIC ANEMIA,PNEUMONITIS Discharge Diagnosis: Bacteremia Elevated Troponin Anemia Pneumothorax Bradycardia Weakness Hx Fall Discharge Goals: Decrease discomfort, Improve disease control, Improve function and Increase independence Activity: Resume your previous activity Activity Comment: As tolerated Non-emergency contact: Primary Care Provider and Surgeon Call non-emergency contact if: you have any medication questions and your temperature is above 101 Follow-up/Referrals: Bienvenido Marin MD [Primary Care Provider] - Diet: Heart Healthy Addtl Provider Instructions: Follow up with your primary care provider once discharge from rehab Follow up with thoracic physician Dr. Valle Continue IV abx with rocephin to complete 6 weeks (Starting from 07/24/17) Continue physical and occupational therapy Follow up with wound care clinic Continue daily dressing care Fall precaution Check weekly cmp, cbc, esr while on IV antibiotic Ultrasound guided peripheral can stay for about 30 days Monitor for sign of fluid overload (Please titrate lasix if needed) Prescriptions: New atenolol 25 mg Tablet 12.5 mg PO QAM 30 Days Qty: 15 RF: 0 furosemide [Lasix] 20 mg tablet 20 mg PO DAILY Qty: 30 RF: 0 ceftriaxone 2 gram recon soln 2 gm IV DAILY 36 Days Qty: 36 RF: 0 Continued aspirin [Aspirin Low Dose] 81 mg Tablet,Delayed Release (Dr/Ec) 81 mg PO QAM RF: 0 simvastatin 40 mg tablet 40 mg PO DAILY RF: 0 levothyroxine 75 mcg tablet 75 mcg PO QAM RF: 0 paroxetine HCl 30 mg tablet 30 mg PO QAM RF: 0 ranitidine HCl 150 mg Tablet 150 mg PO QAM RF: 0 digoxin 125 mcg tablet 62.5 mcg PO QAM RF: 0 lisinopril 40 mg Tablet 40 mg PO QAM RF: 0 calcitriol 0.25 mcg capsule 0.25 mcg PO UD RF: 0 cholecalciferol (vitamin D3) 1,000 unit Capsule 1,000 unit PO DAILY RF: 0 Artificial Tears (PF) Dropperette 1 - 2 drp OPHTHALMIC (EYE) UD RF: 0 potassium chloride 10 mEq tablet extended release 10 meq PO BID RF: 0 methadone 10 mg Tablet 5 mg PO BID Qty: 4 RF: 0 Discontinued atenolol 50 mg tablet 75 mg PO QAM RF: 0 furosemide 40 mg tablet 40 mg PO BID RF: 0 Stand-Alone Forms: [facility] Discharge Orders: Discharge Order (Routine); Ordered 07/29/18 Ordered By: Dayanna Sheffield Skilled Items Patient informed of condition?: Yes DNR: Yes Discharge Level of Care: Skilled Communicable Disease: No Discharge Prognosis: Stable Admission Data Admit Date/Time: 07/16/18 16:05 Attending Provider: Dayanna Sheffield Admit Provider: Nigel Peace Primary Care Provider: Bienvenido Marin Other Providers: Nigel Peace ; Shama Weems ; Gilberto Valle ; Abeba Howard ; oJno Minor ; Dayanna Sheffield ; Charles Rivera ; Rolan Paz Service: Telemetry Medical Other Interventions: Discharge Summary Assessment (RN) Last Done: 07/29/18 14:43 DC Date/Time DO NOT enter until pt leaves facility: 07/29/18 15:21
== END 2018-07-29 15:21 | DRG 871 ==
LOC: ED 11:02 → 2S 16:05 → SUATTDRO 16:05 → 2S 18:20 → 2N 07-19 01:33
DX: N18.3 Chronic kidney disease, stage 3 (moderate); I25.10 Atherosclerotic heart disease of native coronary artery without angina pectoris; N17.9 Acute kidney failure, unspecified; Z86.711 Personal history of pulmonary embolism; I12.9 Hypertensive chronic kidney disease with stage 1 through stage 4 chronic kidney disease, or unspecified chronic kidney disease; E87.0 Hyperosmolality and hypernatremia; I50.812 Chronic right heart failure; Z87.891 Personal history of nicotine dependence; J90 Pleural effusion, not elsewhere classified; J93.83 Other pneumothorax; G89.29 Other chronic pain; B95.62 Methicillin resistant Staphylococcus aureus infection as the cause of diseases classified elsewhere; Z91.81 History of falling; R00.1 Bradycardia, unspecified; C90.01 Multiple myeloma in remission; I48.2 Chronic atrial fibrillation; M54.9 Dorsalgia, unspecified; Z79.82 Long term (current) use of aspirin; D72.829 Elevated white blood cell count, unspecified; R78.81 Bacteremia; D63.8 Anemia in other chronic diseases classified elsewhere; Z79.01 Long term (current) use of anticoagulants; I24.8 Other forms of acute ischemic heart disease; S22.20XD Unspecified fracture of sternum, subsequent encounter for fracture with routine healing; G93.41 Metabolic encephalopathy; J18.9 Pneumonia, unspecified organism; I95.9 Hypotension, unspecified; S22.49XD Multiple fractures of ribs, unspecified side, subsequent encounter for fracture with routine healing; Z66 Do not resuscitate

== ENCOUNTER 2018-09-06 15:17 | Inpatient (IN) ==
--- OUTSIDE RECORDS SUMMARY | 2018-09-06 15:19 | External Medical Summary | Continuity of Care Document ---
:1940 Author Name Junito Landeros Address Unavailable Unavailable , Care Team Providers Name Role Phone Tori Landeros Unavailable [email or web address] Unavailable Unavailable Unavailable Unavailable Unavailable Assessments Assessment Narrative:Right Pleural Effusion, s/p Right Thoracentesis on 07/20/18 Assessed Problems:Pleural effusion, rightHypertensionAfibHeart failure, rightCAD (coronary artery disease)MRSA (methicillin resistant Staphylococcus aureus) HyperlipidemiaMuscle weaknessSleep apneaChronic kidney disease, stage 3Spinal stenosisGoutVitamin D deficiencyHypocalcemiaHypokalemiaDepressive disorderRenal osteodystrophyHyperparathyroidism Problems Neoplasm of uncertain behavior of skin (238.2) (D48.5) Seborrheic keratosis (702.19) (L82.1) Epidermal cyst (706.2) (L72.0) Basal cell carcinoma of skin of face (173.31) (C44.310) Actinic keratosis (702.0) (L57.0) History of basal cell carcinoma (V10.83) (Z85.828) Hypertension (401.9) (I10) Afib (427.31) (I48.91) Heart failure, right (428.0) (I50.810) CAD (coronary artery disease) (414.00) (I25.10) MRSA (methicillin resistant Staphylococcus aureus) (041.12) (A49.02) Hyperlipidemia (272.4) (E78.5) Muscle weakness (728.87) (M62.81) Sleep apnea (780.57) (G47.30) Chronic kidney disease, stage 3 (585.3) (N18.3) Spinal stenosis (724.00) (M48.00) Gout (274.9) (M10.9) Vitamin D deficiency (268.9) (E55.9) Hypocalcemia (275.41) (E83.51) Hypokalemia (276.8) (E87.6) Depressive disorder (311) (F32.9) Renal osteodystrophy (588.0) (N25.0) Hyperparathyroidism (252.00) (E21.3) Pleural effusion, right (511.9) (J90) Allergies and Adverse Reactions No Known Drug Allergies (Allergy) Adhesive Tape (Allergy) Medications Warfarin Sodium 5 MG Oral Tablet; TAKE 1 TABLET DAILY DIR ECTED. Start: 03-May-2014 Refills: 0 Atenolol 50 MG Oral Tablet; TAKE 1 1/2 TABLET DAILY DIREC PELON. Start: 03-May-2014 Refills: 0 Digoxin 125 MCG Oral Tablet; TAKE 1 TABLET DAILY. Start: 03-May-2014 Refills: 0 Potassium Citrate ER 10 MEQ (1080 MG) Or al Tablet Extended Release; TAKE 1 TABLET DAILY. Start: 03-May-2014 Refills: 0 PARoxetine HCl - 30 MG Oral Tablet; TAKE 1 TABLET DAILY. Start: 03-May-2014 Refills: 0 Lisinopril 40 MG Oral Tablet; TAKE 1 TABLET DAILY. Start: 03-May-2014 Refills: 0 raNITIdine HCl - 150 MG Oral Tablet; TAKE 1 TABLET DAILY. Start: 03-May-2014 Refills: 0 Simvastatin 40 MG Oral Tablet; TAKE 1 TABLET DAILY. Start: 03-May-2014 Refills: 0 Furosemide 40 MG Oral Tablet; TAKE 2 TABLETS DAILY. Start: 03-May-2014 Refills: 0 Methadone HCl - 10 MG Oral Tablet; TAKE 1 TABLET EVERY 6 HOURS NEEDED FOR PAIN. Start: 03-May-2014 Refills: 0 Aspirin 81 MG TABS; TAKE 1 TABLET DAILY. Start: 03-May-2014 Refills: 0 Vitamin D3 1000 UNIT Oral Tablet; TAKE 1 TABLET DAILY. Start: 03-May-2014 Refills: 0 Levothyroxine Sodium 75 MCG Oral Tablet; TAKE 1 TABLET DAILY . Quantity: 60 Refills: 0 Calcitriol CAPS; Friday and Refills: 0 Stool Softener TABS; Take 1 tablet twice daily Refills: 0 cefTRIAXone Sodium 2 GM Intravenous Solution Reconstituted; USE DIRECTED. Start: 10-Aug-2018 Refills: 0 Procedures X-ray Chest, PA and Lateral Routine Date: 10-Aug-2018 X-ray Chest, PA and Lateral Routine Date: 30-Jul-2018 History of thoracentesis Status: Complet ed Immunizations Immunizations not documented Interventions Discussion/SummaryI had a long talk with the patient and his here in the office. I have explained that he does have some fluid in his chest but I do not believe it is related to his positive blood cultures. In addition he does not appear to be symptomatic from this fluid. This point I would like to see him back in1 month with a chest x-ray. His chest x-ray from 08/07/2018 was not much different than his hospital films after the thoracentesis. He does look much better. Plan of Treatment Planned Observations X-ray Chest, PA and Lateral Routine Start: 10-Sep-2018 Inte nt Results No Known Results Results not documented Vital Signs 10-Aug-2018 9:23 Systolic 133 mm[Hg] Diastolic 83 mm[Hg] Respiration 18 /min Temperature 96.9 f Heart Rate 66 /min Weight 165 lb Height 74 in BMI Calculated 21.18 kg/m2 BSA Calculated 2 m2 Encounters Appointment; Kentrell Mayberry M.D. 25-Mar-2017 8:40 Encounter Diagnosis: Problem not documented Appointment; Kentrell Mayberry M.D. 30-Sep-2016 8:40 Encounter Diagnosis: Problem not documented Appointment; Gilberto Valle M.D. 10-Aug-2018 9:15 Encounter Diagnosis: Problem not documented
[2018-09-06] MEDS ORDERED: ASPIRIN CHEW 324 MG PO STA (15:44)
[2018-09-06 16:13] LABS: Basophils # (auto) 0.01 K/uL (0-0.2); Basophils % (auto) 0.2 %; Eosinophils # (auto) 0.01 K/uL (0-0.5); Eosinophils % (auto) 0.2 %; Hematocrit (blood only) 28.4 % (42-52); Immature Granulocytes # (auto) 0.03 K/uL (0.00-0.02); Immature Granulocytes % (auto) 0.6 %; Lymphocytes # (auto) 0.34 K/uL (1.2-3.4); Mean Corpuscular Hgb Conc 31.7 g/dL (32-36); Mean Corpuscular Volume 101.1 fL (80-100); Mean Platelet Volume 8.3 fL (7.4-10.4); Monocytes # (auto) 0.44 K/uL (0.11-0.59); Monocytes % (auto) 9.1 %; Neutrophils # (auto) 4.01 K/uL (1.4-6.5); Neutrophils % (auto) 82.9 %; Platelet Count 260 K/uL (130-400); RDW Coefficient of Variation 17.9 % (11.5-14.5); RDW Standard Deviation 67.2 fL (36.4-46.3); Red Blood Count 2.81 M/uL (4.7-6.1); White Blood Count 4.84 K/uL (4.8-10.8)
[2018-09-06 16:27] LABS: INR 1.1 (0.9-1.1); Partial Thromboplastin Time 26.5 Seconds (21.0-31.0); Prothrombin Time 11.3 Seconds (9.0-12.0)
[2018-09-06 16:29] LABS: BUN Creatinine Ratio 32.8 (10-20); Calcium 8.3 mg/dl (8.5-10.1); Creatinine Clr Calc Pharmacy 49.3 ml/min; Est GFR (African American) 59.3; Est GFR (Non-African American) 51.2; Potassium 4.6 mmol/L (3.5-5.1)
[2018-09-06 16:34] LABS: Troponin I 0.036 ng/ml (0-0.045)
[2018-09-06 16:35] LABS: HCO3 VBG 28 mmol/L; PCO2 VBG 49 mmHg (38-50); PO2 VBG 21 mmHg; pH VBG 7.37 (7.36-7.41)
[2018-09-06] MEDS ORDERED: FUROSEMIDE 40 MG/4 ML VIAL IV STA (16:38)
[2018-09-06 16:55] LABS: Oxygen Saturation VBG < 60.0 %
--- NOTE | 2018-09-06 16:56 | XRay Report ---
SINGLE VIEW CHEST CLINICAL HISTORY: Dyspnea. Fluid overload. FINDINGS: An AP, portable, upright chest radiograph is compared to chest x-ray 07/27/2018 and correlat ed with chest CT dated 07/20/2018. The examination is degraded by portable technique and patient rotat ion. The heart is enlarged and there is atherosclerotic calcification of the thoracic aorta. The pul monary vasculature is noncongested. Emphysema is again noted. Volume loss in the right lung is again noted. There are right larger than left pleural effusions with bibasilar consolidation. No pneumothor ax is seen. The skeletal structures are osteopenic. There are numerous healed right-sided rib fractur es. Fusion hardware is partially imaged in the lumbar spine. IMPRESSION: 1. Cardiomegaly and emphysema with no radiographic evidence of congestive failure. 2. There are right larger left pleural effusions with bibasilar consolidation. This is similar to noé or studies. Electronically signed by: Vance Novoa M.D. 09/06/2018 4:54 PM
--- NOTE | 2018-09-06 17:55 | Emergency Department Note ---
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 The patient states that has swelling in both of his legs. The patient reports that he has had congested heart failure in the past. He denies any blood thinning medication. He denies any chest pain, loss of conscious, fall, and bloody or melena. Home Medications Home Medications Medication Instructions Recorded Confirmed Type Artificial Tears (PF) 1 - 2 drp OPHTHALMIC (EYE) 03/30/18 09/06/18 History DIRECTED PRN aspirin [Aspirin Low Dose] 81 mg PO QAM 03/30/18 09/06/18 History calcitriol 0.25 mcg PO 2XWK 03/30/18 09/06/18 History digoxin 62.5 mcg PO QAM 03/30/18 09/06/18 History levothyroxine 75 mcg PO QAM 03/30/18 09/06/18 History lisinopril 40 mg PO QAM 03/30/18 09/06/18 History paroxetine HCl 30 mg PO QAM 03/30/18 09/06/18 History ranitidine HCl 150 mg PO QAM 03/30/18 09/06/18 History simvastatin 40 mg PO QAM 03/30/18 09/06/18 History potassium chloride 10 meq PO BID 07/16/18 09/06/18 History atenolol 12.5 mg PO QAM 09/06/18 09/06/18 History methadone 5 mg PO BID 09/06/18 09/06/18 History Allergies Allergy/AdvReac Type Severity Reaction Status Date / Time adhesive Allergy Unknown Rash and Verified 09/06/18 16:19 blisters Past Med/Surg History Medical History History of pulmonary embolism (Chronic) GERD (gastroesophageal reflux disease) (Chronic) Depression (Chronic) GARRETT (obstructive sleep apnea) (Chronic) Chronic back pain (Chronic) Hypothyroidism (Chronic) Multiple myeloma (Chronic) 1991 - chemo and radiation In remission CKD (chronic kidney disease), stage III (Chronic) Hypertension A-fib (Chronic) Right-sided heart failure (Chronic) CAD (coronary artery disease) (Chronic) DVT (deep venous thrombosis) (Resolved) Anticoagulant long-term use (Chronic) Surgical History H/O inguinal hernia repair (Chronic) History of cholecystectomy (Chronic) History of lumbar surgery (Chronic) Family History Other Coronary heart disease Diabetes Hypertension Leukemia Social History Preferred Language: Brazilian Communication Ability: Effective Beliefs That Will Affect Care: Mandaeism Mandaeism Beliefs: Druze marital status: Current Living Situation: Spouse Feels Safe at Home: Yes Smoking Status: Former smoker Hx Alcohol Use: No Hx Substance Use: No Review of Systems See HPI for pertinent positives & negatives. and A total of 10 systems reviewed and were otherwise negative Physical Exam Vital Signs Vital Signs - 24 hr 09/06/18 15:26 09/06/18 15:50 09/06/18 17:00 Temperature 36.7 C 36.7 C Temperature Source Oral Oral Sepsis Recent Fever Within 48 Hours No Sepsis Action Taken by Nursing No Action Required Pulse Rate 67 60 Pulse Rate [Apical] 60 60 Respiratory Rate 20 20 20 Respiratory Effort / Characteristics Non-Labored Spontaneous Non-Labored Spontaneous Respiratory Depth Normal Normal Respiratory Pattern Regular Regular Blood Pressure 132/78 Blood Pressure [Right Arm] 155/94 H 160/107 H Blood Pressure Mean 96 Blood Pressure Mean [Right Arm] 114 124 Blood Pressure Position Sitting Pulse Oximetry 96 94 100 Oxygen Delivery Method Room Air Room Air Room Air 09/06/18 17:30 Temperature Temperature Source Sepsis Recent Fever Within 48 Hours Sepsis Action Taken by Nursing Pulse Rate Pulse Rate [Apical] 63 Respiratory Rate 20 Respiratory Effort / Characteristics Respiratory Depth Respiratory Pattern Blood Pressure Blood Pressure [Right Arm] 177/62 H Blood Pressure Mean Blood Pressure Mean [Right Arm] 100 Blood Pressure Position Pulse Oximetry 100 Oxygen Delivery Method Room Air Physical Exam GENERAL: He is oriented to person, place, and time. He appears well-developed and well-nourished. He does not appear distressed. ____ HENT: Exam performed. - Head: Normocephalic and atraumatic. - Right Ear: External ear normal. No mastoid tenderness. - Left Ear: External ear normal. No mastoid tenderness. - Mouth/Throat: The oropharynx is clear and moist. No trismus in the jaw. No dental abscesses or uvula swelling. No oropharyngeal exudate or tonsillar abscesses. ____ EYES: Conjunctivae and EOM are normal. Pupils are equal, round, and reactive to light. Right eye exhibits no discharge. Left eye exhibits no discharge. No scleral icterus. ____ NECK: Normal range of motion. Neck supple. No JVD present. No spinous process tenderness present. No carotid bruit present. No rigidity. No tracheal deviation and normal range of motion present. No Brudzinski's sign and no Kernig's sign noted. ____ CV: 3+ pitting edema in bilateral extremitiesNormal rate, regular rhythm, normal heart sounds and intact distal pulses. Palpable radial pulses bue. ____ PULM/CHEST: Effort normal and breath sounds normal. No respiratory distress. No stridor. He has no wheezes. He has no rales. - Chest Wall: He exhibits no tenderness. ____ ABD: The abdomen is soft. Bowel sounds are normal. He has no distension. No mass is present. There is no tenderness. There is no rebound, no guarding, no Parmar's sign and no tenderness at McBurney's point. Rovsig negative MUSC/SKEL: 3+ pitting edema in bilateral extremitiesNormal range of motion. There is no tenderness or deformity. LYMPH: No cervical adenopathy. ____ NEURO: He is alert and oriented to person, place, and time. He has normal strength. No cranial nerve deficit or sensory deficit. Coordination and gait normal. GCS eye subscore is 4. GCS verbal subscore is 5. GCS motor subscore is 6. cerbellar tests wnl. ____ SKIN: Skin is warm and dry. He is not diaphoretic. ____ PSYCH: He has a normal mood and affect. His behavior is normal. Judgment and thought content normal. ____ Course 1534: The patient was evaluated in room B8, and a complete history and physical examination were performed. 1702: The patient's vital signs were stable. His chest X-Ray showed cardiomegaly with cephalization bilateral pleural effusions. proBNP is elevated troponin within normal limits. The patient was given Lasix for CHF exacerbation. I discussed the case with Leila Panda and she recommended Dr. Eric Marquez for further evaluation. Reevaluation(s) Reevaluation #1: Dr. Eric Winn Hospitalist Time: 17:02 Administered Medications Discontinued Medications Aspirin (Aspirin) 324 mg PO NOW STA Stop: 09/06/18 15:45 Last Admin: 09/06/18 16:21 Dose: 324 mg Documented by: [id number] Furosemide (Lasix) 40 mg IV NOW STA Stop: 09/06/18 16:39 Last Admin: 09/06/18 16:47 Dose: 40 mg Documented by: [id number] Medical Decision Making Medical Records Attestation: I reviewed the patient's medical records. Home Medications Current Medication List: was personally reviewed by me Laboratory Data Attestation: I reviewed the patient's lab results. Result diagrams: 09/06/18 16:02 09/06/18 16:02 Lab Results 09/06/18 09/06/18 09/06/18 Range/Units 16:02 16:02 16:02 WBC 4.84 (4.8-10.8) K/uL RBC 2.81 L (4.7-6.1) M/uL Hgb 9.0 L (14.0-18.0) g/dL Hct 28.4 L (42-52) % MCV 101.1 H (80-100) fL MCH 32.0 (25-34) pg MCHC 31.7 L (32-36) g/dL RDW Std Deviation 67.2 H (36.4-46.3) fL RDW Coeff of Pedro Luis 17.9 H (11.5-14.5) % Plt Count 260 (130-400) K/uL MPV 8.3 (7.4-10.4) fL Immature Gran % (Auto) 0.6 % Neut % (Auto) 82.9 % Lymph % (Auto) 7.0 % [place] % (Auto) 9.1 % Eos % (Auto) 0.2 % Baso % (Auto) 0.2 % Immature Gran # (Auto) 0.03 H (0.00-0.02) K/uL Neut # (Auto) 4.01 (1.4-6.5) K/uL Lymph # (Auto) 0.34 L (1.2-3.4) K/uL [place] # (Auto) 0.44 (0.11-0.59) K/uL Eos # (Auto) 0.01 (0-0.5) K/uL Baso # (Auto) 0.01 (0-0.2) K/uL PT 11.3 (9.0-12.0) Seconds INR 1.1 (0.9-1.1) APTT 26.5 (21.0-31.0) Seconds PTT Ratio 1.0 VBG pH (7.36-7.41) VBG pCO2 (38-50) mmHg VBG pO2 mmHg VBG HCO3 mmol/L VBG O2 Saturation % VBG Base Excess mEq/L Barometric Pressure mm/Hg Sodium 143 (136-145) mmol/L Potassium 4.6 (3.5-5.1) mmol/L Chloride 108 H (98-107) mmol/L Carbon Dioxide 28 (21-32) mmol/L Anion Gap 7.0 (3-11) BUN 44 H (7-18) mg/dl Creatinine 1.33 (0.6-1.4) mg/dl Est Cr Clr Drug Dosing 49.3 ml/min Est GFR ( Amer) 59.3 Est GFR (Non-Af Amer) 51.2 BUN/Creatinine Ratio 32.8 H (10-20) Glucose 107 H (70-99) mg/dl Calcium 8.3 L (8.5-10.1) mg/dl Troponin I 0.036 (0-0.045) ng/ml NT-Pro-B Natriuret Pep 8066 H (0-1800) pg/ml 09/06/18 Range/Units 16:19 WBC (4.8-10.8) K/uL RBC (4.7-6.1) M/uL Hgb (14.0-18.0) g/dL Hct (42-52) % MCV (80-100) fL MCH (25-34) pg MCHC (32-36) g/dL RDW Std Deviation (36.4-46.3) fL RDW Coeff of Pedro Luis (11.5-14.5) % Plt Count (130-400) K/uL MPV (7.4-10.4) fL Immature Gran % (Auto) % Neut % (Auto) % Lymph % (Auto) % [place] % (Auto) % Eos % (Auto) % Baso % (Auto) % Immature Gran # (Auto) (0.00-0.02) K/uL Neut # (Auto) (1.4-6.5) K/uL Lymph # (Auto) (1.2-3.4) K/uL [place] # (Auto) (0.11-0.59) K/uL Eos # (Auto) (0-0.5) K/uL Baso # (Auto) (0-0.2) K/uL PT (9.0-12.0) Seconds INR (0.9-1.1) APTT (21.0-31.0) Seconds PTT Ratio VBG pH 7.37 (7.36-7.41) VBG pCO2 49 (38-50) mmHg VBG pO2 21 mmHg VBG HCO3 28 mmol/L VBG O2 Saturation < 60.0 % VBG Base Excess 2.0 mEq/L Barometric Pressure 724.9 mm/Hg Sodium (136-145) mmol/L Potassium (3.5-5.1) mmol/L Chloride (98-107) mmol/L Carbon Dioxide (21-32) mmol/L Anion Gap (3-11) BUN (7-18) mg/dl Creatinine (0.6-1.4) mg/dl Est Cr Clr Drug Dosing ml/min Est GFR ( Amer) Est GFR (Non-Af Amer) BUN/Creatinine Ratio (10-20) Glucose (70-99) mg/dl Calcium (8.5-10.1) mg/dl Troponin I (0-0.045) ng/ml NT-Pro-B Natriuret Pep (0-1800) pg/ml ECG Data Attestation: I personally reviewed and interpreted this ECG as follows: Indication: SOB/dyspnea Rate (beats per minute): 64 Rhythm: atrial fibrillation Findings: + other (QRC 198 and QTC 246) and + RBBB; no ST depression and no ST elevation Blood Pressure Blood Pressure Findings: Elevated blood pressure Blood Pressure Disposition: elevated BP felt to be situational MDM Narrative The patient's vital signs were stable. His chest X-Ray showed cardiomegaly with cephalization bilateral pleural effusions. proBNP is elevated troponin within normal limits. The patient was given Lasix for CHF exacerbation. I discussed the case with Leila Panda and she recommended [facility] for further evaluation. Impression & Plan CHF (congestive heart failure) Discharge Plan Visit Data Chief Complaint: Shortness of Breath/Dyspnea Stated Complaint: SOB,FEVER ED Provider: Anjel Georges Discharge Problem: CHF (congestive heart failure) Patient Disposition: Being Evaluated by Hospitalist Forms Stand Alone Forms: My [facility] Prescriptions Prescriptions: No Action aspirin [Aspirin Low Dose] 81 mg Tablet,Delayed Release (Dr/Ec) 81 mg PO QAM RF: 0 simvastatin 40 mg tablet 40 mg PO QAM RF: 0 levothyroxine 75 mcg tablet 75 mcg PO QAM RF: 0 paroxetine HCl 30 mg tablet 30 mg PO QAM RF: 0 ranitidine HCl 150 mg Tablet 150 mg PO QAM RF: 0 digoxin 125 mcg tablet 62.5 mcg PO QAM RF: 0 lisinopril 40 mg Tablet 40 mg PO QAM RF: 0 calcitriol 0.25 mcg capsule 0.25 mcg PO 2XWK RF: 0 Artificial Tears (PF) [place] 1 - 2 drp OPHTHALMIC (EYE) DIRECTED PRN (Reason: Dry Eye(S)) RF: 0 potassium chloride 10 mEq tablet extended release 10 meq PO BID RF: 0 methadone 10 mg tablet 5 mg PO BID RF: 0 atenolol 25 mg tablet 12.5 mg PO QAM RF: 0 Referrals Referrals: Bienvenido Marin MD [Primary Care Provider] - Discharge Problem: CHF (congestive heart failure) Qualifiers: Heart failure type: unspecified Heart failure chronicity: unspecified Qualified Code(s): I50.9 - Heart failure, unspecified The scribe's documentation has been prepared under my direction and personally reviewed by me in its entirety. I confirm that the note above accurately reflects all work, treatment, procedures, and medical decision making performed by me.
[2018-09-06] MEDS ORDERED: XOPENEX/ATROVENT 0.63mg/0.5MG NEB COMBO NEB SCH (20:00)
--- NOTE | 2018-09-06 20:07 | History & Physical Report ---
Date of Service September 06, 2018 Assessment & Plan (1) Shortness of breath: Possibly secondary to mild CHF exacerbation, acute bronchitis versus pneumonia, healthcare associated Patient has a history of right-sided CHF Echocardiogram performed July 2018 EF of 65 to 70%, moderate to severe mitral regurgitation, moderate tricuspid regurgitation Patient takes Lasix 20 mg p.o. daily Chest x-ray showing bilateral pleural effusions and bibasilar consolidation unchanged from previous BNP elevated at 8066 Patient received Lasix 40 mg IV at the ER Monitor response, titrate Lasix accordingly in the morning Cardiology service consulted Wound care care services for bilateral leg wounds Possible acute bronchitis versus Pneumonia, Health Care Associated Patient has several year history of smoking, but has quit several years ago Patient admitted in July 2018 and [facility] for bacteremia CT chest ordered for better definition of lung parenchyma Procalcitonin also ordered Sputum culture and blood cultures ordered We will cover with Zosyn and Levaquin empirically (2) Low grade fever: Patient reports fever of 99 �F and chills at home He was just recently admitted for MSSA bacteremia and finished 36 days of IV ceftriaxone at the [facility] He was discharged yesterday from the [facility] facility to home Will rule out underlying infection including pneumonia, UTI, or possible partially treated bacteremia Follow-up CT chest, urinalysis/urine culture, blood culture Patient covered empirically with Zosyn and Levaquin De-escalate antibiotics based on clinical course (3) History of coronary artery disease: Denies chest pain Continue aspirin and atenolol (4) Atrial fibrillation: Rate controlled, continue usual digoxin and atenolol Noted antiregulation secondary to chronic GI bleeding (5) History of pulmonary embolism: Not on anticoagulation secondary to chronic GI bleeding (6) Anemia of chronic disease: Hemoglobin 9, at baseline Denies bleeding (7) Hypertension: Mildly elevated Continue atenolol enalaprilat IV as needed Monitor blood pressure (8) Hypothyroidism: Continue levothyroxine 75 mcg daily DVT prophylaxis Anticoagulation contraindicated secondary to history of chronic GI bleed SCDs contraindicated secondary to bilateral leg edema Encourage ambulation CODE STATUS Full code as per patient Disposition Recently discharged from [facility] to his home Will order PT and OT evaluation Patient is to be discharged home, he will need home health services History of Present Illness 77-year-old male with history of coronary disease, status post stent placement, right-sided CHF, atrial fibrillation, History of PE, anemia of chronic disease, hypertension, dyslipidemia, hypothyroidism, recent bacteremia MSSA, pneumothorax and rib fractures status post fall Presenting with increased shortness of breath, and fever at home. Patient was admitted to [facility] last July 2017 for MSSA bacteremia for which she completed IV ceftriaxone via PICC line at the [facility] facility. He was discharged yesterday to home. At home, the patient was noted to have coughing, crackles on auscultation, and low-grade fever. He was then brought to the emergency room for further evaluation. At the ER, patient was received with stable vital signs overall. BNP was noted to be 8066, chest x-ray showed bilateral pleural effusions with bibasilar consolidation unchanged from before. He was given Lasix 40 mg IV and aspirin to 24 mg at the ER. On exam, the patient was seen resting in bed, saturating more than 90% on room air, not in distress. States he feels improved compared to earlier when he was admitted. Does report cough productive of whitish sputum, increased shortness of breath, and low-grade fever of 90 degrees at home. Also reports increasing bilateral leg swelling. Denies other symptoms. Primary Care Provider: Bienvenido Marin MD Allergies Allergy/AdvReac Type Severity Reaction Status Date / Time adhesive Allergy Unknown Rash and Verified 09/06/18 16:19 blisters Home Medications Home Medications Medication Instructions Recorded Confirmed Type Artificial Tears (PF) 1 - 2 drp OPHTHALMIC (EYE) 03/30/18 09/06/18 History DIRECTED PRN aspirin [Aspirin Low Dose] 81 mg PO QAM 03/30/18 09/06/18 History calcitriol 0.25 mcg PO 2XWK 03/30/18 09/06/18 History digoxin 62.5 mcg PO QAM 03/30/18 09/06/18 History levothyroxine 75 mcg PO QAM 03/30/18 09/06/18 History lisinopril 40 mg PO QAM 03/30/18 09/06/18 History paroxetine HCl 30 mg PO QAM 03/30/18 09/06/18 History ranitidine HCl 150 mg PO QAM 03/30/18 09/06/18 History simvastatin 40 mg PO QAM 03/30/18 09/06/18 History potassium chloride 10 meq PO BID 07/16/18 09/06/18 History atenolol 12.5 mg PO QAM 09/06/18 09/06/18 History methadone 5 mg PO BID 09/06/18 09/06/18 History Past Med/Surg History Medical History History of pulmonary embolism (Chronic) GERD (gastroesophageal reflux disease) (Chronic) Depression (Chronic) GARRETT (obstructive sleep apnea) (Chronic) Chronic back pain (Chronic) Hypothyroidism (Chronic) Multiple myeloma (Chronic) 1991 - chemo and radiation In remission CKD (chronic kidney disease), stage III (Chronic) Hypertension A-fib (Chronic) Right-sided heart failure (Chronic) CAD (coronary artery disease) (Chronic) DVT (deep venous thrombosis) (Resolved) Anticoagulant long-term use (Chronic) Surgical History H/O inguinal hernia repair (Chronic) History of cholecystectomy (Chronic) History of lumbar surgery (Chronic) Family History Other Coronary heart disease Diabetes Hypertension Leukemia Social History Preferred Language: Montserratian Communication Ability: Effective Beliefs That Will Affect Care: Spiritism Spiritism Beliefs: Shinto marital status: Current Living Situation: Spouse Feels Safe at Home: Yes Smoking Status: Former smoker Hx Alcohol Use: No Hx Substance Use: No Review of Systems Review of Systems: All systems reviewed & are unremarkable except as noted in HPI & below Physical Exam Physical Exam: General- oriented x 3, not in distress, speaks in sentences with no effort or accessory muscle use Poorly nourished Head- atraumatic Eyes- PERRL, EOMI, anicteric ENT- oropharynx clear Neck- supple, mild JVD, no adenopathy, no thyromegaly; carotids +2/2, no bruits appreciated Lungs-scattered rhonchi bilaterally, no wheezing Heart- normal rate, irregularly irregular rhythm; grade 2 through 3 systolic murmur Abdomen- normal bowel sounds, nondistended, soft, nontender, no masses or hepatosplenomegaly Extremities-mild lower leg edema, with small open wounds, no erythema/warmth/tenderness, no signs of infection Neuro- alert, oriented x 3; CN 2-12 grossly intact; motor 5/5 bilaterally;sensation 100% on all extremities; no other gross focal neurologic deficits Skin- warm & dry Results & Data Vital Signs (Past 12 Hours) Vital Signs Temp Pulse Pulse Resp BP BP Pulse Ox 09/06/18 19:08 64 20 168/113 H 100 09/06/18 17:30 63 20 177/62 H 100 09/06/18 17:00 60 20 160/107 H 100 09/06/18 15:50 36.7 C 60 60 20 155/94 H 94 09/06/18 15:26 36.7 C 67 20 132/78 96 Laboratory Results Laboratory Results - last 24 hr 09/06/18 09/06/18 09/06/18 16:02 16:02 16:02 WBC 4.84 RBC 2.81 L Hgb 9.0 L Hct 28.4 L MCV 101.1 H MCH 32.0 MCHC 31.7 L RDW Std Deviation 67.2 H RDW Coeff of Pedro Luis 17.9 H Plt Count 260 MPV 8.3 Immature Gran % (Auto) 0.6 Neut % (Auto) 82.9 Lymph % (Auto) 7.0 [place] % (Auto) 9.1 Eos % (Auto) 0.2 Baso % (Auto) 0.2 Immature Gran # (Auto) 0.03 H Neut # (Auto) 4.01 Lymph # (Auto) 0.34 L [place] # (Auto) 0.44 Eos # (Auto) 0.01 Baso # (Auto) 0.01 PT 11.3 INR 1.1 APTT 26.5 PTT Ratio 1.0 VBG pH VBG pCO2 VBG pO2 VBG HCO3 VBG O2 Saturation VBG Base Excess Barometric Pressure Sodium 143 Potassium 4.6 Chloride 108 H Carbon Dioxide 28 Anion Gap 7.0 BUN 44 H Creatinine 1.33 Est Cr Clr Drug Dosing 49.3 Est GFR ( Amer) 59.3 Est GFR (Non-Af Amer) 51.2 BUN/Creatinine Ratio 32.8 H Glucose 107 H Calcium 8.3 L Troponin I 0.036 NT-Pro-B Natriuret Pep 8066 H Procalcitonin 09/06/18 09/06/18 16:19 19:59 WBC RBC Hgb Hct MCV MCH MCHC RDW Std Deviation RDW Coeff of Pedro Luis Plt Count MPV Immature Gran % (Auto) Neut % (Auto) Lymph % (Auto) [place] % (Auto) Eos % (Auto) Baso % (Auto) Immature Gran # (Auto) Neut # (Auto) Lymph # (Auto) [place] # (Auto) Eos # (Auto) Baso # (Auto) PT INR APTT PTT Ratio VBG pH 7.37 VBG pCO2 49 VBG pO2 21 VBG HCO3 28 VBG O2 Saturation < 60.0 VBG Base Excess 2.0 Barometric Pressure 724.9 Sodium Potassium Chloride Carbon Dioxide Anion Gap BUN Creatinine Est Cr Clr Drug Dosing Est GFR ( Amer) Est GFR (Non-Af Amer) BUN/Creatinine Ratio Glucose Calcium Troponin I NT-Pro-B Natriuret Pep Procalcitonin Pending Diagnostic Findings SINGLE VIEW CHEST CLINICAL HISTORY: Dyspnea. Fluid overload. FINDINGS: An AP, portable, upright chest radiograph is compared to chest x-ray 07/27/2018 and correlated with chest CT dated 07/20/2018. The examination is degraded by portable technique and patient rotation. The heart is enlarged and there is atherosclerotic calcification of the thoracic aorta. The pulmonary vasculature is noncongested. Emphysema is again noted. Volume loss in the right lung is again noted. There are right larger than left pleural effusions with bibasilar consolidation. No pneumothorax is seen. The skeletal structures are osteopenic. There are numerous healed right-sided rib fractures. Fusion hardware is partially imaged in the lumbar spine. IMPRESSION: 1. Cardiomegaly and emphysema with no radiographic evidence of congestive failure. 2. There are right larger left pleural effusions with bibasilar consolidation. This is similar to prior studies. ECG Indication: SOB/dyspnea Rate (beats per minute): 64 Rhythm: atrial fibrillation Code Status & VTE Plan Code Status Full code as per discussion with the patient
[2018-09-06] MEDS ORDERED: ACETAMINOPHEN 325 MG TAB PO PRN (20:19)
[2018-09-06] MEDS: IPRATROPIUM BROMIDE NEB SOLN 0.02% 2.5 ML VIAL INH SCH (20:19)
[2018-09-06] MEDS: LEVALBUTEROL HCL 0.63 MG/3 ML NEB NEB SCH (20:19)
[2018-09-06] MEDS ORDERED: ENALAPRILAT 0.625 MG in SYRINGE 9.5 ML IV PRN (20:19)
[2018-09-06] MEDS ORDERED: PIPERACILL/TAZOBAC CONSULT ACTIVE PRN (20:42)
[2018-09-06] MEDS ORDERED: LEVOFLOXACIN CONSULT ACTIVE PRN (20:44)
[2018-09-06] MEDS ORDERED: PIPERACILLIN/TAZOBACTAM 3.375 GM in DEXTROSE 5% 100 ML IV ONE (21:00)
[2018-09-06 21:04] LABS: Appearance Urine Clear (Clear); Bacteria Urine Automated Negative (Negative); Bilirubin Urine Negative (Negative); Blood Urine Trace (Negative); Color Urine Yellow; Epithelial Cell Urine Auto 0-5 /lpf (0-5); Glucose Urine UA Negative (Negative); Ketones Urine Negative (Negative); Leukocyte Esterase Urine Negative (Negative); Nitrite Urine Negative (Negative); Protein Urine Negative (Negative); RBC Urine Automated 0-4 /hpf (0-4); Specific Gravity Urine 1.013 (1.000-1.030); Urobilinogen Urine Negative (Negative); WBC Urine Automated 0 /hpf (0-5)
[2018-09-06] MEDS: POTASSIUM CHLORIDE 10 MEQ TABCR PO SCH (21:36)
[2018-09-06] MEDS: ASPIRIN 81 MG ECTAB PO SCH (21:36)
[2018-09-06] MEDS: METHADONE HCL 5 MG TAB PO SCH (21:36)
[2018-09-06] MEDS: LEVOFLOXACIN/D5W 750 MG/150 ML BAG IV SCH (22:08)
[2018-09-07] MEDS: PIPERACILLIN/TAZOBACTAM 3.375 GM in DEXTROSE 5% 100 ML IV SCH ×3 (01:07→17:50)
[2018-09-07] MEDS: IPRATROPIUM BROMIDE NEB SOLN 0.02% 2.5 ML VIAL INH SCH ×4 (02:19→20:18)
[2018-09-07] MEDS: LEVALBUTEROL HCL 0.63 MG/3 ML NEB NEB SCH ×4 (02:19→20:18)
[2018-09-07] MEDS: LEVOTHYROXINE SODIUM 75 MCG TABLET PO SCH (05:26)
[2018-09-07 07:01] LABS: Basophils # (auto) 0.01 K/uL (0-0.2); Basophils % (auto) 0.3 %; Eosinophils # (auto) 0.01 K/uL (0-0.5); Eosinophils % (auto) 0.3 %; Hematocrit (blood only) 25.5 % (42-52); Hemoglobin 8.3 g/dL (14.0-18.0); Immature Granulocytes # (auto) 0.02 K/uL (0.00-0.02); Immature Granulocytes % (auto) 0.6 %; Lymphocytes % (auto) 11.5 %; Mean Corpuscular Hgb Conc 32.5 g/dL (32-36); Mean Platelet Volume 8.5 fL (7.4-10.4); Monocytes # (auto) 0.52 K/uL (0.11-0.59); Monocytes % (auto) 14.9 %; Neutrophils # (auto) 2.53 K/uL (1.4-6.5); Neutrophils % (auto) 72.4 %; Nucleated RBC # (auto) 0.02 K/uL (0-0); Nucleated RBC % (auto) 0.5 %; Platelet Count 216 K/uL (130-400); RDW Coefficient of Variation 17.8 % (11.5-14.5); RDW Standard Deviation 65.8 fL (36.4-46.3); Red Blood Count 2.55 M/uL (4.7-6.1); White Blood Count 3.49 K/uL (4.8-10.8)
[2018-09-07 07:31] LABS: BUN Creatinine Ratio 30.8 (10-20); Calcium 8.4 mg/dl (8.5-10.1); Creatinine Clr Calc Pharmacy 49.3 ml/min; Est GFR (African American) 59.3; Est GFR (Non-African American) 51.2; Potassium 4.6 mmol/L (3.5-5.1)
--- NOTE | 2018-09-07 07:47 | XRay Report ---
XR chest 1V portable HISTORY: 78 years-old Male ff up chf follow-up study in a patient with history of congestive heart f ailure and acute shortness of breath COMPARISON: Chest radiograph 09/06/2018 TECHNIQUE: Portable AP view of the chest FINDINGS: Cardiac silhouette is enlarged. Mild pulmonary vascular congestion. Emphysema. Bibasilar opacities ar e noted with persistent bilateral pleural effusions. Degenerative changes of the shoulders and spine. No pneumothorax. IMPRESSION: 1. Cardiomegaly with mild pulmonary vascular congestion. 2. Bilateral pleural effusions with bibasilar consolidation redemonstrated. 3. Emphysema. The above report was generated using voice recognition software. It may contain grammatical, syntax o r spelling errors. Electronically signed by: Ruben Luna M.D. 09/07/2018 7:46 AM
[2018-09-07] MEDS: ASPIRIN 81 MG ECTAB PO SCH (08:11)
[2018-09-07] MEDS: POTASSIUM CHLORIDE 10 MEQ TABCR PO SCH ×2 (08:12→20:32)
[2018-09-07] MEDS: LISINOPRIL 40 MG TAB PO SCH (08:12)
[2018-09-07] MEDS: PARoxetine HCl 10 MG TAB PO SCH (08:13)
[2018-09-07] MEDS: ATENOLOL 25 MG TABLET PO SCH (08:13)
[2018-09-07] MEDS: CALCITRIOL 0.25 MCG CAPSULE PO SCH (08:13)
[2018-09-07] MEDS: SIMVASTATIN 40 MG TAB PO SCH (08:13)
[2018-09-07] MEDS: METHADONE HCL 5 MG TAB PO SCH ×2 (08:21→20:32)
--- NOTE | 2018-09-07 09:07 | Cardiology Consultation ---
Date of Consultation September 07, 2018 Assessment & Plan (1) Low grade fever: The patient had a staph bacteremia and just finished a prolonged course of antibiotics. He has a low-grade fever after admission. We will ask ID to see the patient in follow-up. (2) Anemia of chronic disease: Most likely his anemia is from chronic disease and numerous blood draws. We will check for iron deficiency. He ultimately may benefit from a blood transfusion due to his multiple medical problems including COPD. (3) Atrial fibrillation: Atrial fibrillation is chronic. He has had a history of previous multiple falls and is not anticoagulated. (4) History of coronary artery disease: His coronary artery disease disease has been stable for several years after coronary stent was placed in the left circumflex artery. (5) CHF (congestive heart failure): Although the patient may have some mild congestive heart failure, I believe this is most likely multifactorial including his emphysema and anemia which are causing his shortness of breath. (6) Pulmonary hypertension: Previously on an echocardiogram he had normal LV function. No significant right ventricular dysfunction or evidence of right heart failure. He does have pulmonary hypertension and I am going to have the pulmonary service see him. History of Present Illness Attending Physician: Rolan Paz MD History of Present Illness This is a 78-year-old male patient with a complex medical history. He has emphysema and COPD with associated pulmonary hypertension. He was admitted to the hospital approximately 6 weeks ago with bacteremia and blood cultures grew staph aureus. He also had what is described as a pneumonitis. The patient had a prolonged hospital stay as well as a senior living center completing a course of antibiotics. The patient was just discharged home for 24 hours. He states he had shortness of breath and did not feel well, came to the emergency department where he is now been readmitted. He has chronic atrial fibrillation. He is not anticoagulated due to history of multiple previous falls. He has a history of previous coronary stent several years ago in the left circumflex artery with his coronary artery disease being stable. 1. Chronic right-sided heart failure with severe tricuspid regurgitation. 2. Pulmonary hypertension. 3. Chronic AFib, no longer an anticoagulation candidate given frequent falls. 4. Coronary artery disease. 5. Hypertension. 6. Obstructive sleep apnea. 7. Chronic kidney disease. 8. Anemia. 9. Recent pneumothorax. 10. Pleural effusion, status post thoracentesis. 11. Pulmonary nodules. 12. Hypothyroidism. 13. History of tobacco abuse. 14. Recent hospital admission for bacteremia pneumonitis Allergies Allergy/AdvReac Type Severity Reaction Status Date / Time adhesive Allergy Unknown Rash and Verified 09/06/18 16: blisters Home Medications Home Medications Medication Instructions Recorded Confirmed Type Artificial Tears (PF) 1 - 2 drp OPHTHALMIC (EYE) 03/30/18 09/06/18 History DIRECTED PRN aspirin [Aspirin Low Dose] 81 mg PO QAM 03/30/18 09/06/18 History calcitriol 0.25 mcg PO 2XWK 03/30/18 09/06/18 History digoxin 62.5 mcg PO QAM 03/30/18 09/06/18 History levothyroxine 75 mcg PO QAM 03/30/18 09/06/18 History lisinopril 40 mg PO QAM 03/30/18 09/06/18 History paroxetine HCl 30 mg PO QAM 03/30/18 09/06/18 History ranitidine HCl 150 mg PO QAM 03/30/18 09/06/18 History simvastatin 40 mg PO QAM 03/30/18 09/06/18 History potassium chloride 10 meq PO BID 07/16/18 09/06/18 History atenolol 12.5 mg PO QAM 09/06/18 09/06/18 History methadone 5 mg PO BID 09/06/18 09/06/18 History Patient History Medical History History of pulmonary embolism (Chronic) GERD (gastroesophageal reflux disease) (Chronic) Depression (Chronic) GARRETT (obstructive sleep apnea) (Chronic) Chronic back pain (Chronic) Hypothyroidism (Chronic) Multiple myeloma (Chronic) 1991 - chemo and radiation In remission CKD (chronic kidney disease), stage III (Chronic) Hypertension A-fib (Chronic) Right-sided heart failure (Chronic) CAD (coronary artery disease) (Chronic) DVT (deep venous thrombosis) (Resolved) Anticoagulant long-term use (Chronic) Surgical History H/O inguinal hernia repair (Chronic) History of cholecystectomy (Chronic) History of lumbar surgery (Chronic) Family History Other Coronary heart disease Diabetes Hypertension Leukemia Social History Preferred Language: Macanese Communication Ability: Effective Business Objects Required: No Beliefs That Will Affect Care: Scientologist Scientologist Beliefs: Jewish marital status: Current Living Situation: Spouse Other Information That Helps Us Care for You: No Feels Safe at Home: Yes Safety Concerns: Feels Safe At This Time Smoking Status: Never smoker Do You Dip or Chew Tobacco: No Second Hand Exposure: No Hx Alcohol Use: No Hx Substance Use: No Review of Systems Review of Systems: All systems reviewed & are unremarkable except as noted in HPI & below No additional history. Physical Exam Physical Exam: General: Cachectic appearance Head: normocephalic, no masses, lesions, tenderness or abnormalities Eyes: conjunctiva are pink and non-injected, sclera clear Neck: supple, no adenopathy, no bruits, normal jugular venous pulse, no hepatojugular reflux Chest: normal shape and normal respiratory effort Lungs: Decreased breath sounds throughout the lung santo Cardiac Exam: - Irregular rate & rhythm, no murmurs gallops or rubs - normal S1, normal S2 Pulses: 2(+) throughout Abdomen: abdomen soft, non-tender, no abnormal masses and no hepatosplenomegaly Musculoskeletal: no gait disturbance, no joint inflammation, no deforming arthritis Extremities: no edema and no cyanosis Neuro: grossly normal exam Results & Data Vital Signs (Past 12 Hours) Vital Signs Temp Pulse Pulse Resp BP Pulse Ox 09/07/18 07:35 74 18 95 09/07/18 06:55 36.4 C L 78 18 147/95 H 95 09/07/18 03:04 36.6 C 61 16 149/76 H 98 09/07/18 02:21 73 16 93 09/06/18 23:35 37.1 C 68 66 16 142/83 H 97 09/06/18 22:49 36.8 C 89 20 162/77 H 94 Laboratory Results Laboratory Results - last 24 hr 09/06/18 09/06/18 09/06/18 16:02 16:02 16:02 WBC 4.84 RBC 2.81 L Hgb 9.0 L Hct 28.4 L MCV 101.1 H MCH 32.0 MCHC 31.7 L RDW Std Deviation 67.2 H RDW Coeff of Pedro Luis 17.9 H Plt Count 260 MPV 8.3 Immature Gran % (Auto) 0.6 Neut % (Auto) 82.9 Lymph % (Auto) 7.0 [place] % (Auto) 9.1 Eos % (Auto) 0.2 Baso % (Auto) 0.2 Immature Gran # (Auto) 0.03 H Neut # (Auto) 4.01 Lymph # (Auto) 0.34 L [place] # (Auto) 0.44 Eos # (Auto) 0.01 Baso # (Auto) 0.01 Absolute Nucleated RBC Nucleated RBC % (auto) PT 11.3 INR 1.1 APTT 26.5 PTT Ratio 1.0 VBG pH VBG pCO2 VBG pO2 VBG HCO3 VBG O2 Saturation VBG Base Excess Barometric Pressure Sodium 143 Potassium 4.6 Chloride 108 H Carbon Dioxide 28 Anion Gap 7.0 BUN 44 H Creatinine 1.33 Est Cr Clr Drug Dosing 49.3 Est GFR ( Amer) 59.3 Est GFR (Non-Af Amer) 51.2 BUN/Creatinine Ratio 32.8 H Glucose 107 H Calcium 8.3 L Troponin I 0.036 NT-Pro-B Natriuret Pep 8066 H Procalcitonin Urine Color Urine Appearance Urine pH Ur Specific [place] Urine Protein Urine Glucose (UA) Urine Ketones Urine Blood Urine Nitrite Urine Bilirubin Urine Urobilinogen Ur Leukocyte Esterase Urine WBC (Auto) Urine RBC (Auto) U Hyaline Cast (Auto) U Epithel Cells (Auto) Urine Bacteria (Auto) 09/06/18 09/06/18 09/06/18 16:19 19:59 20:30 WBC RBC Hgb Hct MCV MCH MCHC RDW Std Deviation RDW Coeff of Pedro Luis Plt Count MPV Immature Gran % (Auto) Neut % (Auto) Lymph % (Auto) [place] % (Auto) Eos % (Auto) Baso % (Auto) Immature Gran # (Auto) Neut # (Auto) Lymph # (Auto) [place] # (Auto) Eos # (Auto) Baso # (Auto) Absolute Nucleated RBC Nucleated RBC % (auto) PT INR APTT PTT Ratio VBG pH 7.37 VBG pCO2 49 VBG pO2 21 VBG HCO3 28 VBG O2 Saturation < 60.0 VBG Base Excess 2.0 Barometric Pressure 724.9 Sodium Potassium Chloride Carbon Dioxide Anion Gap BUN Creatinine Est Cr Clr Drug Dosing Est GFR ( Amer) Est GFR (Non-Af Amer) BUN/Creatinine Ratio Glucose Calcium Troponin I NT-Pro-B Natriuret Pep Procalcitonin 0.18 Urine Color Yellow Urine Appearance Clear Urine pH 7.0 Ur Specific [place] 1.013 Urine Protein Negative Urine Glucose (UA) Negative Urine Ketones Negative Urine Blood Trace H Urine Nitrite Negative Urine Bilirubin Negative Urine Urobilinogen Negative Ur Leukocyte Esterase Negative Urine WBC (Auto) 0 Urine RBC (Auto) 0-4 U Hyaline Cast (Auto) 1-5 U Epithel Cells (Auto) 0-5 Urine Bacteria (Auto) Negative 09/07/18 09/07/18 06:42 06:42 WBC 3.49 L RBC 2.55 L Hgb 8.3 L Hct 25.5 L MCV 100.0 MCH 32.5 MCHC 32.5 RDW Std Deviation 65.8 H RDW Coeff of Pedro Luis 17.8 H Plt Count 216 MPV 8.5 Immature Gran % (Auto) 0.6 Neut % (Auto) 72.4 Lymph % (Auto) 11.5 [place] % (Auto) 14.9 Eos % (Auto) 0.3 Baso % (Auto) 0.3 Immature Gran # (Auto) 0.02 Neut # (Auto) 2.53 Lymph # (Auto) 0.40 L [place] # (Auto) 0.52 Eos # (Auto) 0.01 Baso # (Auto) 0.01 Absolute Nucleated RBC 0.02 H Nucleated RBC % (auto) 0.5 PT INR APTT PTT Ratio VBG pH VBG pCO2 VBG pO2 VBG HCO3 VBG O2 Saturation VBG Base Excess Barometric Pressure Sodium 143 Potassium 4.6 Chloride 109 H Carbon Dioxide 30 Anion Gap 5.0 BUN 41 H Creatinine 1.33 Est Cr Clr Drug Dosing 49.3 Est GFR ( Amer) 59.3 Est GFR (Non-Af Amer) 51.2 BUN/Creatinine Ratio 30.8 H Glucose 83 Calcium 8.4 L Troponin I NT-Pro-B Natriuret Pep Procalcitonin Urine Color Urine Appearance Urine pH Ur Specific [place] Urine Protein Urine Glucose (UA) Urine Ketones Urine Blood Urine Nitrite Urine Bilirubin Urine Urobilinogen Ur Leukocyte Esterase Urine WBC (Auto) Urine RBC (Auto) U Hyaline Cast (Auto) U Epithel Cells (Auto) Urine Bacteria (Auto) Medications Administered Current Inpatient Medications Acetaminophen (Tylenol) 650 mg PO Q4H PRN PRN Reason: Pain or Fever Stop: 10/06/18 20:18 Aspirin ([facility]cotrin [facility]) [facility] [place] 10/06/18 20:18 Last Admin: 09/07/18 08:11 Dose: 81 mg Documented by: Atenolol (Tenormin) 12.5 mg PO QAM [facility] Stop: 10/07/18 08:59 Last Admin: 09/07/18 08:13 Dose: 12.5 mg Documented by: Calcitriol (Racaltrol) 0.25 mcg PO MoTh@0900 [facility] Stop: 10/07/18 08:59 Last Admin: 09/07/18 08:13 Dose: 0.25 mcg Documented by: Digoxin (Lanoxin) 0.0625 mg PO DAILY@1600 [facility] Stop: 10/07/18 15:59 Enalaprilat 0.625 mg/ Syringe 10 mls @ 2 mls/min IV Q6H PRN PRN Reason: systolic bp > 160 Stop: 10/06/18 20:18 Piperacillin Sod/Tazobactam (Sod 3.375 gm/ Dextrose) 115 mls @ 28.75 mls/hr IV Q8H [facility]; Protocol Stop: 09/14/18 01:59 Last Infusion: 09/07/18 04:31 Dose: Infused Documented by: Levofloxacin/Dextrose (Levaquin/D5w) 750 mg in 150 mls @ 100 mls/hr IV Q48H [facility]; Protocol Stop: 09/13/18 20:59 Last Infusion: 09/06/18 23:33 Dose: Infused Documented by: Ipratropium [place] (Atrovent 0.02% 0.5mg/2.5ml) 0.5 mg INH Q6R [facility] Stop: 10/06/18 19:59 Last Admin: 09/07/18 07:34 Dose: 0.5 mg Documented by: Levalbuterol HCl (Xopenex 0.63 Mg/3 Ml Neb) 0.63 mg NEB Q6R [facility] Stop: 10/06/18 19:59 Last Admin: 09/07/18 07:34 Dose: 0.63 mg Documented by: Levothyroxine Sodium (Synthroid) 75 mcg PO DAILYBB [facility] Stop: 10/07/18 06:29 Last Admin: 09/07/18 05:26 Dose: 75 mcg Documented by: Lisinopril (Zestril) [facility] [place] Stop: 10/07/18 08:59 Last Admin: 09/07/18 08:12 Dose: 40 mg Documented by: Methadone HCl (Dolophine) 5 mg PO BID [facility] Stop: 09/20/18 20:59 Last Admin: 09/07/18 08:21 Dose: 5 mg Documented by: Miscellaneous Information (Consult) 1 ea N/A UD PRN PRN Reason: Consult Stop: 10/06/18 20:41 Miscellaneous Information (Consult) 1 ea N/A UD PRN PRN Reason: Consult Stop: 10/06/18 20:43 Paroxetine HCl (Paroxetine Hcl) 30 mg PO [facility] Stop: 10/07/18 08:59 Last Admin: 09/07/18 08:13 Dose: 30 mg Documented by: Potassium Chloride (Klor-Con M10) 10 meq PO BID [facility] Stop: 10/06/18 20:59 Last Admin: 09/07/18 08:12 Dose: 10 meq Documented by: Ranitidine HCl (Zantac) 150 [facility] [place] Stop: 10/07/18 08:59 Last Admin: 09/07/18 08:12 Dose: 150 mg Documented by: Simvastatin (Zocor) 40 mg PO [facility] Stop: 10/07/18 08:59 Last Admin: 09/07/18 08:13 Dose: 40 mg Documented by: (1) CHF (congestive heart failure) Heart failure chronicity: unspecified Heart failure type: unspecified Qualified Code(s): I50.9 - Heart failure, unspecified
[2018-09-07 10:38] LABS: Reticulocyte % 3.3 % (0.5-2.0); Reticulocytes # 0.09 10^6/uL (0.02-0.10)
--- NOTE | 2018-09-07 10:49 | Infectious Disease Consult ---
Date of Consultation September 07, 2018 Assessment & Plan (1) Shortness of breath: clinically looks much improved, follow cultures, if negative would follow off of abx. History of Present Illness Attending Physician: Rolan Paz MD pt admitted due to sob. was recently hospitalized for pleural effusion, s/p drainage and MSSA sepsis - treated with course of rocephin that recently finished at [facility], states he was home 1 day and had sob, readmitted, cxr with b/l effusions and ? consolidation. started on zosyn and levaquin, cardio eval obtained, due to recent bsi with MSSA ID was consulted. Repeat blood cultures are pending. He tolerated abx well. He did not have office f/u with ID while on abx. He currently denies sob, cp, cough, no n/v/d, abd pain, eating well. States he feels significantly better compared to last hospital stay. He had + blood culture on 07/22, 07/24 negative and final. echo negative, was to have LISS but this was deferred due to co-morbidities. pt was treated with prolonged course of IV abx and tolerated well. wbc 3.4, UA negative. sputum and blood cultures are pending. Allergies Allergy/AdvReac Type Severity Reaction Status Date / Time adhesive Allergy Unknown Rash and Verified 09/06/18 16:19 blisters Home Medications Home Medications Medication Instructions Recorded Confirmed Type Artificial Tears (PF) 1 - 2 drp OPHTHALMIC (EYE) 03/30/18 09/06/18 History DIRECTED PRN aspirin [Aspirin Low Dose] 81 mg PO QAM 03/30/18 09/06/18 History calcitriol 0.25 mcg PO 2XWK 03/30/18 09/06/18 History digoxin 62.5 mcg PO QAM 03/30/18 09/06/18 History levothyroxine 75 mcg PO QAM 03/30/18 09/06/18 History lisinopril 40 mg PO QAM 03/30/18 09/06/18 History paroxetine HCl 30 mg PO QAM 03/30/18 09/06/18 History ranitidine HCl 150 mg PO QAM 03/30/18 09/06/18 History simvastatin 40 mg PO QAM 03/30/18 09/06/18 History potassium chloride 10 meq PO BID 07/16/18 09/06/18 History atenolol 12.5 mg PO QAM 09/06/18 09/06/18 History methadone 5 mg PO BID 09/06/18 09/06/18 History Patient History Medical History History of pulmonary embolism (Chronic) GERD (gastroesophageal reflux disease) (Chronic) Depression (Chronic) GARRETT (obstructive sleep apnea) (Chronic) Chronic back pain (Chronic) Hypothyroidism (Chronic) Multiple myeloma (Chronic) 1991 - chemo and radiation In remission CKD (chronic kidney disease), stage III (Chronic) Hypertension A-fib (Chronic) Right-sided heart failure (Chronic) CAD (coronary artery disease) (Chronic) DVT (deep venous thrombosis) (Resolved) Anticoagulant long-term use (Chronic) Surgical History H/O inguinal hernia repair (Chronic) History of cholecystectomy (Chronic) History of lumbar surgery (Chronic) Family History Other Coronary heart disease Diabetes Hypertension Leukemia Social History Preferred Language: Argentine Communication Ability: Effective Precision Lens Grinder Required: No Beliefs That Will Affect Care: Voodoo Voodoo Beliefs: Evangelical marital status: Current Living Situation: Spouse Other Information That Helps Us Care for You: No Feels Safe at Home: Yes Safety Concerns: Feels Safe At This Time Smoking Status: Never smoker Do You Dip or Chew Tobacco: No Second Hand Exposure: No Hx Alcohol Use: No Hx Substance Use: No Review of Systems Review of Systems: All systems reviewed & are unremarkable except as noted in HPI & below Physical Exam Constitutional: WD/WN, vitals as above Eyes: PERRL, conjunctivae normal, anicteric sclerae ENMT: external ear and nose normal, oropharynx normal Neck: normal visual inspection Respiratory: normal respiratory effort, lungs clear to auscultation Auscultation: + diminished lung sounds Cardiovascular: RRR, no murmur, no edema Gastrointestinal (Abdomen): normal bowel sounds, soft, nontender, no hepatosplenomegaly Musculoskeletal: no cyanosis or clubbing, extremities motor strength 5/5 Skin: no rashes, warm and dry Psychiatric: A+Ox3, euthymic affect Results & Data Vital Signs (Past 12 Hours) Vital Signs Temp Pulse Pulse Resp BP Pulse Ox 09/07/18 07:35 74 18 95 09/07/18 06:55 36.4 C L 78 18 147/95 H 95 09/07/18 03:04 36.6 C 61 16 149/76 H 98 09/07/18 02:21 73 16 93 09/06/18 23:35 37.1 C 68 66 16 142/83 H 97 09/06/18 22:49 36.8 C 89 20 162/77 H 94
[2018-09-07] MEDS ORDERED: ONDANSETRON INJ 2 MG/ML 2 ML VIAL IV PRN (10:52)
[2018-09-07] MEDS ORDERED: SODIUM CHLORIDE 0.9% 500 ML IV PRN (10:52)
[2018-09-07] MEDS ORDERED: ATROPINE SULFATE 0.1 MG/ML 10ML SYR IV PRN (10:52)
[2018-09-07] MEDS ORDERED: ACETAMINOPHEN 325 MG TAB PO PRN (10:52)
[2018-09-07] MEDS ORDERED: SODIUM CHLORIDE 0.9% 1000ML 1,000 ML IV SCH ×2 (11:00)
[2018-09-07 11:24] LABS: Ferritin 66.7 ng/ml (8-388)
[2018-09-07] MEDS: DIGOXIN 0.125 MG TAB PO SCH (16:42)
--- NOTE | 2018-09-07 17:35 | CT Scan Report ---
CT chest wo con CT DOSE: 297.52 mGy.cm HISTORY: Loculated effusion/pneumonitis TECHNIQUE: Multiaxial CT images of the chest were performed without contrast. A dose lowering techni que was utilized adhering to the principles of ALARA. COMPARISON: Chest CT 07/20/2018. FINDINGS: No pneumothorax. The left airways appear patent. There is near complete mucoid opacificatio n of the bronchus intermedius and right middle and lower lobe bronchi. Interval progression of the mo derate right and small left pleural effusions. The visualized unenhanced liver and spleen are unremar kable. The heart remains enlarged. Coronary artery calcifications are noted. The thoracic aorta is no rmal in caliber. Diffuse body wall edema. Lumbar spine posterior fusion hardware is partially visuali zed. Old bilateral healed rib fractures. Progressive consolidation within the bases of the lower lobe s as well as patchy areas consolidation within the right middle lobe and lingula. Small focal areas o f groundglass opacity within the left upper lobe favor mild inflammatory/infectious change. IMPRESSION: 1. Increase in size in the moderate right and small left pleural effusions. 2. Progressive consolidation within the lung bases as well as near complete mucoid opacification of t he bronchus intermedius and right middle and lower lobe bronchi. This may represent an aspiration pne umonia. 3. Mild emphysema. 4. Additional findings as described above. Electronically signed by: Aj Gomez M.D. 09/07/2018 5:33 PM
--- NOTE | 2018-09-07 20:23 | Hospitalist Progress Note ---
Date of Service September 07, 2018 Assessment & Plan (1) Shortness of breath: Experiencing dyspnea on exertion. Symptoms could be secondary to cardiac disease, pulmonary disease, and/or anemia. Specific problems discussed below. (2) CAD (coronary artery disease): Experiencing dyspnea on exertion without chest pain. Continue aspirin, atenolol, simvastatin. (3) CHF (congestive heart failure): History of right-sided CHF and moderate . Titrate diuretics. (4) Atrial fibrillation: Rate controlled on digoxin and atenolol. No long-term anticoagulants due to chronic heme positive stools. (5) Hypertension: Continue atenolol and lisinopril. (6) Abnormal chest xray: Chest x-ray showed bilateral pleural effusions with bibasilar densities similar to previous films. May or may not have infection. Receiving IV levofloxacin and piperacillin / tazobactam. Pulmonary Medicine consulted. (7) Pulmonary nodules: Pulmonary nodules up to [address] chest 07/20/18. Follow per guidelines. (8) GERD (gastroesophageal reflux disease): Continue ranitidine. (9) CKD (chronic kidney disease), stage III: Serum creatinine 1.33. Follow. (10) Hypothyroidism: Continue levothyroxine. (11) Anemia of chronic disease: Baseline hemoglobin runs around 9. Hemoglobin at time of admission was 9.0. Hemoglobin today 8.3. Repeat evaluation ordered. Follow H&H. Transfuse as needed per guidelines and patient's symptoms. (12) Low grade fever: Reported low grade fever at home. Recent course of IV antibiotic therapy for MSSA. Repeat blood cultures obtained- negative so far. (13) DVT prophylaxis: No anticoagulants because of recent & chronic heme + stools. SCD's and TEDS not ordered because of lower extremity edema. Ambulate as able. (14) Discharge planning issues: Discharge disposition to be determined. Family Medicine follow-up with Dr. Marin. Subjective Recheck for multiple problems. Patient seen in their room around 1820. Patient admitted yesterday with shortness of breath, low grade fever, and other problems. He had just been discharged to home from [facility] the day before after receiving a prolonged course of IV antibiotic therapy for staph aureus (methicillin sensitive) bacteremia. Feels well today. No fever, chills, sweats. Feels less short of breath. Occasional nonproductive cough. No chest pain. Review of Systems: Constitutional- no fever. Cardiac- as noted above. Pulmonary- as noted above. GI- no nausea, vomiting, diarrhea, melena, hematochezia. - has Marin cath (placed yesterday). Otherwise, as noted above. Physical Exam Constitutional: no acute distress Respiratory: no respiratory distress Auscultation: lungs clear to auscultation bilaterally Cardiovascular: Rate/Rhythm: + irregularly irregular Heart Sounds: + murmur (II/ systolic murmur at base); no gallop and no cardiac rub Vessels: no JVD Extremities: + edema (trace pretibial); no calf tenderness Gastrointestinal (Abdomen): normal bowel sounds, soft, nontender, no hepatosplenomegaly Skin: + rash (chronic venous stasis changes lower extremities) Psychiatric: Orientation: alert and oriented x 3 Results & Data Vital Signs (Past 12 Hours) Vital Signs Temp Pulse Pulse Resp BP Pulse Ox 09/07/18 20:18 74 16 97 09/07/18 18:33 36.6 C 69 14 128/76 97 09/07/18 16:42 72 09/07/18 15:36 36.6 C 68 12 145/79 H 94 09/07/18 14:16 64 18 98 09/07/18 11:10 36.5 C 68 22 137/80 91 Laboratory Results Laboratory Results - last 24 hr 09/07/18 09/07/18 09/07/18 06:42 06:42 10:28 WBC 3.49 L RBC 2.55 L Hgb 8.3 L Hct 25.5 L MCV 100.0 MCH 32.5 MCHC 32.5 RDW Std Deviation 65.8 H RDW Coeff of Pedro Luis 17.8 H Plt Count 216 MPV 8.5 Immature Gran % (Auto) 0.6 Neut % (Auto) 72.4 Lymph % (Auto) 11.5 [place] % (Auto) 14.9 Eos % (Auto) 0.3 Baso % (Auto) 0.3 Reticulocyte % (Auto) Immature Gran # (Auto) 0.02 Neut # (Auto) 2.53 Lymph # (Auto) 0.40 L [place] # (Auto) 0.52 Eos # (Auto) 0.01 Baso # (Auto) 0.01 Reticulocyte # Absolute Nucleated RBC 0.02 H Nucleated RBC % (auto) 0.5 Sodium 143 Potassium 4.6 Chloride 109 H Carbon Dioxide 30 Anion Gap 5.0 BUN 41 H Creatinine 1.33 Est Cr Clr Drug Dosing 49.3 Est GFR ( Amer) 59.3 Est GFR (Non-Af Amer) 51.2 BUN/Creatinine Ratio 30.8 H Glucose 83 Calcium 8.4 L Iron TIBC Ferritin Vitamin B12 494 Folate 8.00 09/07/18 09/07/18 10:28 10:28 WBC RBC Hgb Hct MCV MCH MCHC RDW Std Deviation RDW Coeff of Pedro Luis Plt Count MPV Immature Gran % (Auto) Neut % (Auto) Lymph % (Auto) [place] % (Auto) Eos % (Auto) Baso % (Auto) Reticulocyte % (Auto) 3.3 H Immature Gran # (Auto) Neut # (Auto) Lymph # (Auto) [place] # (Auto) Eos # (Auto) Baso # (Auto) Reticulocyte # 0.09 Absolute Nucleated RBC Nucleated RBC % (auto) Sodium Potassium Chloride Carbon Dioxide Anion Gap BUN Creatinine Est Cr Clr Drug Dosing Est GFR ( Amer) Est GFR (Non-Af Amer) BUN/Creatinine Ratio Glucose Calcium Iron 19 L TIBC 238 L Ferritin 66.7 Vitamin B12 Folate (1) CHF (congestive heart failure) Heart failure chronicity: unspecified Heart failure type: unspecified Qualified Code(s): I50.9 - Heart failure, unspecified
--- NOTE | 2018-09-07 22:38 | Consultation Report ---
DATE OF CONSULTATION: 09/07/2018 TIME: 1500 hours. REASON FOR CONSULTATION: Bronchopneumonia/pleural effusion. HISTORY OF PRESENT ILLNESS: A 78-year-old pleasant white male with complex medical history who was admitted to the hospitalist service by Dr. Bereket Marquis on 09/06/2018. The patient has a history of ischemic cardiac disease status post stent placement, right-sided CHF, atrial fibrillation, and a remote history of pulmonary thromboembolic disease, anemia of chronic disease, hypertension, dyslipidemia, hypothyroidism, and recent bacteremia secondary to MSSA as well as pneumothorax and numerous rib fractures following trauma. The patient was at home, became progressively more dyspneic and febrile. He has had multiple admissions to [facility] including one in mid-July for MSSA bacteremia and a course of IV ceftriaxone via PICC line was completed at a nursing home [facility]. He was discharged 1 day prior to admission after completing his course of IV antibiotics at home. He had a nonproductive cough and low-grade fever and worsening dyspnea, was brought back to the Emergency Room. Although his vital signs were somewhat stable, his BNP was greater than 8000. Chest x-ray showed bilateral pleural effusions with bibasilar consolidation. He was given IV Lasix and aspirin in the ER and then admitted on to the hospitalist service. He is lying in bed now quite conversant and stable but somewhat frustrated by his lack of clinical improvement and multiple hospitalizations. He states he was treated for multiple myeloma in 1991 with chemotherapy, radiation, and underwent stem cell transplantation. He has also been on chronic anticoagulant therapy and was admitted with a hemoglobin and hematocrit of 9.0 and 28.4 with hypochromic microcytic indices. BUN was 44, creatinine 1.33. Chest x-ray showed cardiomegaly and emphysematous changes with no radiographic evidence of CHF with bilateral pleural effusions, right greater than left with bibasilar consolidation. The patient has undergone thoracentesis with Dr. Valle on 07/28/2018. At that time, the patient had been started on IV Levaquin and Rocephin in the ER and IV Zosyn and vancomycin were discontinued. The IV Rocephin was then continued until its full completion. The effusion was felt to be loculated and apparently 6 weeks of therapy were completed. CAT scan of the chest at that time showed pleural parenchymal scarring at the right lung base with areas of round atelectasis and bibasilar opacities. The pleural fluid was sterile. The patient has been transfused. He had a small right-sided pneumothorax of undetermined etiology, did not require chest tube insertion. Elevated troponin was felt to be secondary to demand ischemia in the setting of chronic renal disease. He has been in chronic atrial fibrillation. He underwent CHARLEE to the left circumflex in 2006 and confusion during the July admission was felt to be secondary to metabolic encephalopathy. He was seen during this admission by Dr. Abeba Howard. PHYSICAL EXAMINATION: CURRENT VITAL SIGNS: Blood pressure 137/80, pulse 64 and irregular, respiratory rate 18, temperature 36.5, O2 sat 98% on room air. SKIN: Without lesion. HEENT: Atraumatic, normocephalic. PERRLA. LUNGS: Dullness at both bases. LABORATORY DATA: I reviewed the CAT scan of 07/20/2018 following a thoracentesis. There were areas of consolidation versus nodular pathology at the right base with a small right-sided hydropneumothorax, left pleural effusion had increased in volume, and there was current lab work H and H 8.3 and 25.5, white count is 3400. PT, PTT, INR within normal limits. BUN 41, creatinine 1.3. The analysis of the pleural fluid on 07/20/2018 showed 67% mononuclear cells and 32.8% polymorphonuclear leukocytes with 275 white cells. In general, the pleural fluid was edith in color, the protein was low as was the LDH, all consistent with a sterile transudate. OVERALL ASSESSMENT AND PLAN: A 78-year-old white male with complex medical history admitted with progressive dyspnea, cough, and persistent pleural parenchymal changes at the right base greater than left, treated with 6 weeks with eventually IV Rocephin for bacteremia secondary to MSSA, presumably from a lung source, currently with an atrial fibrillation with a controlled ventricular response and quite stable. The patient is on IV Zosyn and pulmonary toilet. I would like to repeat a CT scan without contrast and would possibly consider bronchoscopic evaluation at this point given the chronicity and persistence of his respiratory symptoms to make sure we are not dealing with an endobronchial lesion or obstruction and see if we can better pinpoint the nature of these infiltrates.
[2018-09-08] MEDS: IPRATROPIUM BROMIDE NEB SOLN 0.02% 2.5 ML VIAL INH SCH ×4 (02:01→19:44)
[2018-09-08] MEDS: LEVALBUTEROL HCL 0.63 MG/3 ML NEB NEB SCH ×4 (02:01→19:44)
[2018-09-08] MEDS: PIPERACILLIN/TAZOBACTAM 3.375 GM in DEXTROSE 5% 100 ML IV SCH ×3 (03:53→18:28)
[2018-09-08] MEDS: LEVOTHYROXINE SODIUM 75 MCG TABLET PO SCH (05:51)
[2018-09-08] MEDS ORDERED: fentaNYL citrate 100 MCG/2 ML VIAL ONE (06:27)
[2018-09-08] MEDS ORDERED: MIDAZOLAM HCL 1 MG/ML 2ML VIAL ONE (06:27)
[2018-09-08] MEDS ORDERED: MoRPHine SULFATE PF 1 MG/ML 10 ML AMP/VIAL ONE (06:27)
[2018-09-08] MEDS ORDERED: KETAMINE HCL INJ 50 MG/ML 10 ML VIAL ONE (07:16)
[2018-09-08 08:06] LABS: Hematocrit (blood only) 26.3 % (42-52); Hemoglobin 8.5 g/dL (14.0-18.0); Mean Corpuscular Hgb Conc 32.3 g/dL (32-36); Mean Corpuscular Volume 100.8 fL (80-100); Mean Platelet Volume 8.3 fL (7.4-10.4); Platelet Count 212 K/uL (130-400); RDW Coefficient of Variation 18.1 % (11.5-14.5); RDW Standard Deviation 67.3 fL (36.4-46.3); Red Blood Count 2.61 M/uL (4.7-6.1); White Blood Count 2.83 K/uL (4.8-10.8)
[2018-09-08] MEDS: METHADONE HCL 5 MG TAB PO SCH ×2 (08:11→20:39)
[2018-09-08] MEDS: SIMVASTATIN 40 MG TAB PO SCH (08:11)
[2018-09-08] MEDS: POTASSIUM CHLORIDE 10 MEQ TABCR PO SCH ×2 (08:11→20:39)
[2018-09-08] MEDS: ASPIRIN 81 MG ECTAB PO SCH (08:11)
[2018-09-08] MEDS: ATENOLOL 25 MG TABLET PO SCH (08:12)
[2018-09-08] MEDS: PARoxetine HCl 10 MG TAB PO SCH (08:12)
[2018-09-08] MEDS: LISINOPRIL 40 MG TAB PO SCH (08:12)
[2018-09-08 08:37] LABS: BUN Creatinine Ratio 27.2 (10-20); Calcium 8.5 mg/dl (8.5-10.1); Creatinine Clr Calc Pharmacy 44.6 ml/min; Est GFR (African American) 52.6; Est GFR (Non-African American) 45.4; Potassium 4.6 mmol/L (3.5-5.1)
--- NOTE | 2018-09-08 10:02 | Cardiology Progress Note ---
Date of Service September 08, 2018 Assessment & Plan (1) Atrial fibrillation: Atrial fibrillation is chronic. He has had a history of previous multiple falls and is not anticoagulated. (2) History of coronary artery disease: His coronary artery disease disease has been stable for several years after coronary stent was placed in the left circumflex artery. (3) CHF (congestive heart failure): Although the patient may have some mild congestive heart failure, I believe this is most likely multifactorial including his emphysema and anemia which are causing his shortness of breath. (4) Pulmonary hypertension: Previously on an echocardiogram he had normal LV function. No significant right ventricular dysfunction or evidence of right heart failure. He does have pulmonary hypertension and I am going to have the pulmonary service see him. (5) Multiple myeloma: The patient was treated for multiple myeloma 25 years ago in [place]. He received 2 stem cell transplants. He has been disease free for at least 2 decades. During his last admission however, he did receive blood transfusions. We might have to be careful in regard to transfusions as he will most likely require future transfusions in the possibility of antibodies. (6) COPD (chronic obstructive pulmonary disease): Subjective The patient looks far better. Pulmonary consult appreciated. Review of Systems Review of Systems: All systems reviewed & are unremarkable except as noted in HPI & below Nothing additional Physical Exam Physical Exam: General: no acute distress and stated age Head: normocephalic, no masses, lesions, tenderness or abnormalities Eyes: conjunctiva are pink and non-injected, sclera clear Neck: supple, no adenopathy, no bruits, normal jugular venous pulse, no hepatojugular reflux Chest: normal shape and normal respiratory effort Lungs: clear to auscultation and percussion Cardiac Exam: - regular rate & rhythm, no murmurs gallops or rubs - normal S1, normal S2 Pulses: 2(+) throughout Abdomen: abdomen soft, non-tender, no abnormal masses and no hepatosplenomegaly Musculoskeletal: no gait disturbance, no joint inflammation, no deforming arthritis Extremities: no edema and no cyanosis Neuro: grossly normal exam Results & Data Vital Signs (Past 12 Hours) Vital Signs Temp Pulse Pulse Pulse Resp BP Pulse Ox 09/08/18 08:20 76 09/08/18 07:36 71 16 93 09/08/18 07:06 36.5 C 70 16 174/90 H 91 09/08/18 03:25 36.8 C 70 16 157/85 H 98 09/08/18 02:03 74 18 90 09/07/18 23:17 36.6 C 74 18 144/79 H 95 Laboratory Results Laboratory Results - last 24 hr 09/07/18 09/07/18 09/07/18 10:28 10:28 10:28 WBC RBC Hgb Hct MCV MCH MCHC RDW Std Deviation RDW Coeff of Pedro Luis Plt Count MPV Reticulocyte % (Auto) 3.3 H Reticulocyte # 0.09 Sodium Potassium Chloride Carbon Dioxide Anion Gap BUN Creatinine Est Cr Clr Drug Dosing Est GFR ( Amer) Est GFR (Non-Af Amer) BUN/Creatinine Ratio Glucose Calcium Iron 19 L TIBC 238 L Ferritin 66.7 Vitamin B12 494 Folate 8.00 09/08/18 09/08/18 07:46 07:46 WBC 2.83 L RBC 2.61 L Hgb 8.5 L Hct 26.3 L MCV 100.8 H MCH 32.6 MCHC 32.3 RDW Std Deviation 67.3 H RDW Coeff of Pedro Luis 18.1 H Plt Count 212 MPV 8.3 Reticulocyte % (Auto) Reticulocyte # Sodium 142 Potassium 4.6 Chloride 108 H Carbon Dioxide 29 Anion Gap 5.0 BUN 40 H Creatinine 1.47 H Est Cr Clr Drug Dosing 44.6 Est GFR ( Amer) 52.6 Est GFR (Non-Af Amer) 45.4 BUN/Creatinine Ratio 27.2 H Glucose 82 Calcium 8.5 Iron TIBC Ferritin Vitamin B12 Folate Medications Administered Current Inpatient Medications Acetaminophen (Tylenol) 650 mg PO Q4H PRN PRN Reason: Pain or Fever Stop: 10/06/18 20:18 Aspirin (Ecotrin Ectab) 81 mg PO [facility] Stop: 10/06/18 20:18 Last Admin: 09/08/18 08:11 Dose: 81 mg Documented by: [facility]ten[facility] ([facility]ormin) [facility] Stop: 10/07/18 08:59 Last Admin: 09/08/18 08:12 Dose: 12.5 mg Documented by: Calcitriol (Racaltrol) 0.25 mcg PO MoTh@0900 [facility] Stop: 10/07/18 08:59 Last Admin: 09/07/18 08:13 Dose: 0.25 mcg Documented by: Digoxin (Lanoxin) 0.0625 mg PO DAILY@1600 [facility] Stop: 10/07/18 15:59 Last Admin: 09/07/18 16:42 Dose: 0.0625 mg Documented by: Enalaprilat 0.625 mg/ Syringe 10 mls @ 2 mls/min IV Q6H PRN PRN Reason: systolic bp > 160 Stop: 10/06/18 20:18 Piperacillin Sod/Tazobactam (Sod 3.375 gm/ Dextrose) 115 mls @ 28.75 mls/hr IV Q8H [facility]; Protocol Stop: 09/14/18 01:59 Last Admin: 09/08/18 09:58 Dose: 28.8 mls/hr Documented by: Levofloxacin/Dextrose (Levaquin/D5w) 750 mg in 150 mls @ 100 mls/hr IV Q48H [facility]; Protocol Stop: 09/13/18 20:59 Last Infusion: 09/06/18 23:33 Dose: Infused Documented by: Ipratropium [place] (Atrovent 0.02% 0.5mg/2.5ml) 0.5 mg INH Q6R [facility] Stop: 10/06/18 19:59 Last Admin: 09/08/18 07:34 Dose: 0.5 mg Documented by: Levalbuterol HCl (Xopenex 0.63 Mg/3 Ml Neb) 0.63 mg NEB Q6R [facility] Stop: 10/06/18 19:59 Last Admin: 09/08/18 07:34 Dose: 0.63 mg Documented by: Levothyroxine Sodium (Synthroid) 75 mcg PO DAILYBB [facility] Stop: 10/07/18 06:29 Last Admin: 09/08/18 05:51 Dose: 75 mcg Documented by: Lisinopril (Zestril) 40 mg PO QAM [facility] Stop: 10/07/18 08:59 Last Admin: 09/08/18 08:12 Dose: 40 mg Documented by: Methadone HCl (Dolophine) 5 mg PO BID [facility] Stop: 09/20/18 20:59 Last Admin: 09/08/18 08:11 Dose: 5 mg Documented by: Miscellaneous Information (Consult) 1 ea N/A UD PRN PRN Reason: Consult Stop: 10/06/18 20:41 Miscellaneous Information (Consult) 1 ea N/A UD PRN PRN Reason: Consult Stop: 10/06/18 20:43 Paroxetine HCl (Paroxetine Hcl) [facility] Stop: 10/07/18 08:59 Last Admin: 09/08/18 08:12 Dose: 30 mg Documented by: Potassium Chloride (Klor-Con M10) 10 meq PO BID [facility] Stop: 10/06/18 20:59 Last Admin: 09/08/18 08:11 Dose: 10 meq Documented by: Ranitidine HCl (Zantac) 150 [facility] Stop: 10/07/18 08:59 Last Admin: 09/08/18 08:11 Dose: 150 mg Documented by: Simvastatin (Zocor) 40 mg PO [facility] Stop: 10/07/18 08:59 Last Admin: 09/08/18 08:11 Dose: 40 mg Documented by: (1) CHF (congestive heart failure) Heart failure chronicity: unspecified Heart failure type: unspecified Qualified Code(s): I50.9 - Heart failure, unspecified
--- NOTE | 2018-09-08 11:10 | Infectious Disease Progress Nt ---
Date of Service September 08, 2018 Assessment & Plan (1) Shortness of breath: concernfor aspiration on ct. may need bronch.blood culturesremain negative, afebirle. Subjective pt remains afebrile, blood cultures negative, ct chest showing effusions and right consolidation concerning for aspiraton, s/p pulm eval,may need bronch. tolerating abx. wbc 2.8 Results & Data Vital Signs (Past 12 Hours) Vital Signs Temp Pulse Pulse Pulse Resp BP Pulse Ox 09/08/18 08:20 76 09/08/18 07:36 71 16 93 09/08/18 07:06 36.5 C 70 16 174/90 H 91 09/08/18 03:25 36.8 C 70 16 157/85 H 98 09/08/18 02:03 74 18 90 09/07/18 23:17 36.6 C 74 18 144/79 H 95 Laboratory Results Microbiology 09/06/18 21:15 Sputum, Expectorated Gram Stain - Final 09/06/18 21:15 Sputum, Expectorated Sputum Culture - Final Light normal jennifer. 09/06/18 20:34 Blood Aerobic Blood Culture - Preliminary No growth in Aerobic bottle after 24 hours. 09/06/18 20:34 Blood Anaerobic Blood Culture - Preliminary No growth in Anaerobic bottle after 24 hours. 09/06/18 20:28 Blood Aerobic Blood Culture - Preliminary No growth in Aerobic bottle after 24 hours. 09/06/18 20:28 Blood Anaerobic Blood Culture - Preliminary No growth in Anaerobic bottle after 24 hours.
--- NOTE | 2018-09-08 15:49 | Progress Note ---
DATE: 09/08/2018 PULMONARY MEDICINE PROGRESS NOTE Chart reviewed, the patient examined. SUBJECTIVE: The patient is sitting up in bed, resting comfortably with no signs of respiratory distress. He does feel that he is still congested, unable to bring up any additional sputum for the most part following his nebulizer treatments. He asked me whether "do you think I have any ongoing infection." I think he is on adequate treatment, but his pulmonary toilet is poor given his severe inanition and weakness as well as underlying lung disease. He was seen earlier today by Dr. Howard who is concerned for chronic aspiration, which I would agree with despite given the chronicity and recurrence of this for the most part right lower lobe infiltrate. Dr. Tripp seen the patient as well and recognizes that given the patient's frequent falls, he cannot be anticoagulated. There may be a mild element of CHF, but I agree the most of this is his COPD, possible chronic aspiration pneumonia and anemia. For a man who has had multiple myeloma and apparently it was cured, he is still quite anemic what looks like an iron deficiency anemia from all possibilities. Certainly, it would be also concerned he could have an underlying myelodysplasia or hematologic malignancy, although I have no evidence of that. OBJECTIVE: CURRENT VITAL SIGNS: Blood pressure 153/80, temperature 36.4, respiratory rate 20, pulse 71 and irregular, O2 sat 96% on room air. SKIN: Purpura. HEENT: Atraumatic, normocephalic. PERRLA. LUNGS: Scattered rhonchi at the right base with dullness. CARDIAC: Irregularly irregular rhythm. I do not appreciate a gallop. ABDOMEN: Soft, scaphoid. EXTREMITIES: Trace pedal edema. No clubbing. Peripheral cyanosis. NEUROLOGIC: Intact. LABORATORY DATA: White count 2800, H and H 8.5 and 26.3, platelet count adequate. Chest CT done yesterday and compared with previous CT of 07/20/2018. Progressive consolidation within the lung base with nearly complete mucoid opacification of the bronchus intermedius, right middle and lower lobe bronchi, moderate right and small left pleural effusion. I do not discern a discrete mass. Staph aureus in the blood on 07/22. BUN 40, creatinine 1.47. OVERALL ASSESSMENT: A 78-year-old with severe COPD, complex medical history, chronic atrial fibrillation with persistent and probable acute on chronic aspiration pneumonia, possibly even secondary to staph aureus that was previously methicillin sensitive. I would proceed with bronchoscopy at this point, although the patient represents a moderate risk, I think it is possible with a degree of mucoid impaction and I am visualizing on CAT scan that he would improve from bronchoalveolar lavage. Certainly, ruling out an underlying neoplasm would be helpful and if the patient has not had a recent video swallow that also could be helpful. Would maintain on current medication and would schedule him for bronchoscopy a.m.
[2018-09-08] MEDS: DIGOXIN 0.125 MG TAB PO SCH (17:06)
--- NOTE | 2018-09-08 17:29 | Hospitalist Progress Note ---
Date of Service September 08, 2018 Assessment & Plan (1) Shortness of breath: Experiencing dyspnea on exertion. Symptoms could be secondary to cardiac disease, pulmonary disease, and/or anemia. Specific problems discussed below. (2) CAD (coronary artery disease): Experiencing dyspnea on exertion without chest pain. Continue aspirin, atenolol, simvastatin. (3) CHF (congestive heart failure): History of right-sided CHF and moderate . Titrate diuretics. (4) Atrial fibrillation: Rate controlled on digoxin and atenolol. No long-term anticoagulants due to chronic heme positive stools. (5) Hypertension: Continue atenolol and lisinopril. (6) Abnormal chest xray: Chest x-ray showed bilateral pleural effusions with bibasilar densities similar to previous films. May or may not have infection. Receiving IV levofloxacin and piperacillin / tazobactam. Pulmonary Medicine consulted. (7) Pulmonary nodules: Pulmonary nodules up to [address] chest 07/20/18. Follow per guidelines. (8) GERD (gastroesophageal reflux disease): Continue ranitidine. (9) CKD (chronic kidney disease), stage III: Serum creatinine 1.47. Follow. (10) Hypothyroidism: Continue levothyroxine. (11) Anemia of chronic disease: Baseline hemoglobin runs around 9. Probably anemia of chronic disease. Possible bone marrow suppression due to recent infection. History of multiple myeloma- will review clinic records re: recent follow-up. Intermittent heme + stools- may have chronic blood loss. Hemoglobin at time of admission was 9.0. Hemoglobin 6/3 was 8.3. Repeat evaluation ordered. Hgb today = 8.5. Follow H&H. Transfuse as needed per guidelines and patient's symptoms; transfusion probably not indicated at this time per current guidelines. (12) Low grade fever: Reported low grade fever at home. Recent course of IV antibiotic therapy for MSSA. Repeat blood cultures obtained- negative so far. (13) DVT prophylaxis: No anticoagulants because of recent & chronic heme + stools. SCD's and TEDS not ordered because of lower extremity edema and venous stasis ulcers. Ambulate as able. (14) Discharge planning issues: Discharge disposition to be determined. Family Medicine follow-up with Dr. Marin. Subjective Recheck for multiple problems. Patient seen in their room around 1800. Friend visiting. Feels better today. No fever, chills, sweats. Feels less short of breath. Occasional cough. No chest pain. Review of Systems: Constitutional- no fever. Cardiac- as noted above. Pulmonary- as noted above. GI- constipated; no nausea, vomiting, diarrhea, melena, hematochezia. - Marin cath removed. Otherwise, as noted above. Physical Exam Constitutional: no acute distress Respiratory: no respiratory distress Auscultation: lungs clear to auscultation bilaterally Cardiovascular: Rate/Rhythm: + irregularly irregular Heart Sounds: + murmur (II/ systolic murmur at base); no gallop and no cardiac rub Vessels: no JVD Extremities: + edema (trace pretibial); no calf tenderness Gastrointestinal (Abdomen): normal bowel sounds, soft, nontender, no hepatosplenomegaly Skin: + rash (chronic venous stasis changes lower extremities) Psychiatric: Orientation: alert and oriented x 3 Results & Data Vital Signs (Past 12 Hours) Vital Signs Temp Pulse Pulse Resp BP Pulse Ox 09/08/18 17:06 80 09/08/18 15:29 36.8 C 56 L 19 145/76 H 99 09/08/18 14:28 67 17 97 09/08/18 11:27 36.4 C L 71 20 153/80 H 96 09/08/18 08:20 76 09/08/18 07:36 71 16 93 09/08/18 07:06 36.5 C 70 16 174/90 H 91 Laboratory Results Laboratory Results - last 24 hr 09/08/18 09/08/18 09/08/18 07:46 07:46 14:43 WBC 2.83 L RBC 2.61 L Hgb 8.5 L Hct 26.3 L MCV 100.8 H MCH 32.6 MCHC 32.3 RDW Std Deviation 67.3 H RDW Coeff of Pedro Luis 18.1 H Plt Count 212 MPV 8.3 Sodium 142 Potassium 4.6 Chloride 108 H Carbon Dioxide 29 Anion Gap 5.0 BUN 40 H Creatinine 1.47 H Est Cr Clr Drug Dosing 44.6 Est GFR ( Amer) 52.6 Est GFR (Non-Af Amer) 45.4 BUN/Creatinine Ratio 27.2 H Glucose 82 Calcium 8.5 Folate 7.89 (1) CHF (congestive heart failure) Heart failure chronicity: unspecified Heart failure type: unspecified Qualified Code(s): I50.9 - Heart failure, unspecified
[2018-09-08] MEDS ORDERED: MAGNESIUM HYDROXIDE SUSP 30 ML UDC PO ONE (17:50)
[2018-09-08] MEDS: LEVOFLOXACIN/D5W 750 MG/150 ML BAG IV SCH (22:31)
[2018-09-09] MEDS: PIPERACILLIN/TAZOBACTAM 3.375 GM in DEXTROSE 5% 100 ML IV SCH ×3 (01:03→17:29)
[2018-09-09] MEDS: IPRATROPIUM BROMIDE NEB SOLN 0.02% 2.5 ML VIAL INH SCH ×4 (01:37→19:21)
[2018-09-09] MEDS: LEVALBUTEROL HCL 0.63 MG/3 ML NEB NEB SCH ×4 (01:37→19:21)
[2018-09-09] MEDS: LEVOTHYROXINE SODIUM 75 MCG TABLET PO SCH (06:42)
[2018-09-09 07:52] LABS: Hemoglobin 8.3 g/dL (14.0-18.0); Mean Corpuscular Hgb Conc 31.9 g/dL (32-36); Mean Corpuscular Volume 100.4 fL (80-100); Mean Platelet Volume 8.5 fL (7.4-10.4); Platelet Count 207 K/uL (130-400); RDW Coefficient of Variation 17.8 % (11.5-14.5); RDW Standard Deviation 65.8 fL (36.4-46.3); Red Blood Count 2.59 M/uL (4.7-6.1); White Blood Count 3.12 K/uL (4.8-10.8)
[2018-09-09 08:19] LABS: BUN Creatinine Ratio 28.7 (10-20); Calcium 8.4 mg/dl (8.5-10.1); Creatinine Clr Calc Pharmacy 48.6 ml/min; Est GFR (African American) 58.3; Est GFR (Non-African American) 50.3; Potassium 4.6 mmol/L (3.5-5.1)
[2018-09-09] MEDS: METHADONE HCL 5 MG TAB PO SCH ×2 (10:01→20:42)
[2018-09-09] MEDS: ATENOLOL 25 MG TABLET PO SCH (10:02)
[2018-09-09] MEDS: ASPIRIN 81 MG ECTAB PO SCH (10:02)
[2018-09-09] MEDS: POTASSIUM CHLORIDE 10 MEQ TABCR PO SCH ×2 (10:02→20:42)
[2018-09-09] MEDS: LISINOPRIL 40 MG TAB PO SCH (10:02)
[2018-09-09] MEDS: SIMVASTATIN 40 MG TAB PO SCH (10:02)
[2018-09-09] MEDS: PSYLLIUM 58.6% POWDER PACKET PO SCH (10:03)
[2018-09-09] MEDS: PARoxetine HCl 10 MG TAB PO SCH (10:03)
[2018-09-09] MEDS: DOCUSATE SODIUM 100 MG CAP PO SCH (10:03)
--- NOTE | 2018-09-09 10:48 | Infectious Disease Progress Nt ---
Date of Service September 09, 2018 Assessment & Plan (1) Shortness of breath: concern for aspiration on ct. for bronch in am, follow findings/cultures.blood cultures remain negative, afebirle. Subjective remains on abx fof suspected aspiration, for broch tomorrow. blood cultures remain negative, afebrile. tolerating abx. Results & Data Vital Signs (Past 12 Hours) Vital Signs Temp Pulse Pulse Resp BP Pulse Ox 09/09/18 08:14 96 09/09/18 07:59 36.7 C 83 20 160/89 H 09/09/18 07:19 71 14 94 09/09/18 03:40 36.7 C 66 18 163/81 H 98 09/09/18 01:39 75 18 90 09/08/18 23:49 65 09/08/18 23:40 36.7 C 74 16 147/84 H 92 Laboratory Results Microbiology 09/06/18 20:34 Blood Aerobic Blood Culture - Preliminary No growth in Aerobic bottle after 48 hours. 09/06/18 20:34 Blood Anaerobic Blood Culture - Preliminary No growth in Anaerobic bottle after 48 hours. 09/06/18 20:28 Blood Aerobic Blood Culture - Preliminary No growth in Aerobic bottle after 48 hours. 09/06/18 20:28 Blood Anaerobic Blood Culture - Preliminary No growth in Anaerobic bottle after 48 hours. 09/06/18 21:15 Sputum, Expectorated Gram Stain - Final 09/06/18 21:15 Sputum, Expectorated Sputum Culture - Final Light normal jennifer.
--- NOTE | 2018-09-09 11:09 | Hospitalist Progress Note ---
Date of Service September 09, 2018 Assessment & Plan (1) Shortness of breath: Possible aspiration as had low grade fever 89 F D/D considered: Cardiac etiology- Per cardiology- May be mild CHF +nt, Chronic conditions - Atrial fib, CAD - stable. PHT per prior Echo with normal LV Function. No sig right ventricular dysfunction or right heart failure. COPD- No signs of COPD exacerbation. Multiple Myeloma-treated for multiple myeloma 25 years ago in [place]. Received 2 stem cell transplants. Disease free for at least 2 decades. During last admission received blood transfusions. CBC stable currently with no signs of active bleeding or drop -Pulmonary was consulted- Plan is for bronchoscopy tomorrow -Video swallow done- Aspiration risk per d/w Speech (2) CAD (coronary artery disease): Experiencing dyspnea on exertion without chest pain. -No s/s of ACS. Tro 0.036 -Continue aspirin, atenolol, simvastatin. (3) CHF (congestive heart failure): -History of right-sided CHF and moderate . -Not on diuretics. (4) Abnormal chest xray: Chest x-ray showed bilateral pleural effusions with bibasilar densities similar to previous films. May or may not have infection. -Receiving IV levofloxacin and piperacillin / tazobactam. -Pulmonary Medicine consulted- Plan is for bronchoscopy tomorrow (5) Low grade fever: Reported low grade fever at home. Recent course of IV antibiotic therapy for MSSA Bacteremia with no apparent source identified. Repeat blood cultures obtained- negative so far. (6) Atrial fibrillation: -Rate controlled on digoxin and atenolol. -No long-term anticoagulants due to chronic heme positive stools. (7) Hypertension: -Continue atenolol and lisinopril. (8) Pulmonary nodules: -Pulmonary nodules up to [address] chest 07/20/18. -Follow per guidelines. (9) GERD (gastroesophageal reflux disease): -Continue ranitidine. (10) CKD (chronic kidney disease), stage III: -Serum creatinine down to 1.35 -Follow. (11) Hypothyroidism: -Continue levothyroxine. (12) Anemia of chronic disease: Baseline hemoglobin runs around 9. Probably anemia of chronic disease. Possible bone marrow suppression due to recent infection. History of multiple myeloma. Intermittent heme + stools- may have chronic blood loss. Hemoglobin at time of admission was 9.0 and now stable in the range of 8 -Monitor H & H -Consider outpatient follow up with hematology. (13) DVT prophylaxis: -No anticoagulants because of recent & chronic heme + stools. -SCD's and TEDS not ordered because of lower extremity edema and venous stasis ulcers. -Ambulate as able. (14) Discharge planning issues: -Discharge disposition to be determined. -Family Medicine follow-up with Dr. Marin -PT/OT ordered. Subjective Patient denies any new complaints. Feels like he is at his baseline. Denies any worsening of SOB. No cough. Does have some right hip pain and a mbulatory dysfunction. No fever spikes, chills. Physical Exam Physical Exam: GENERAL- AAOX3, No acute distress LUNGS- Air entry bilaterally equal. No rales, rhonchi, crackles, wheezes heard. HEART- Regular rate and rhythm. No murmurs ABDOMEN- Soft, non tender, non distended, Bowel sounds heard. EXTREMITIES- Good peripheral pulses, no edema Results & Data Vital Signs (Past 12 Hours) Vital Signs Temp Pulse Pulse Resp BP Pulse Ox 09/09/18 08:14 96 09/09/18 07:59 36.7 C 83 20 160/89 H 09/09/18 07:19 71 14 94 09/09/18 03:40 36.7 C 66 18 163/81 H 98 09/09/18 01:39 75 18 90 09/08/18 23:49 65 09/08/18 23:40 36.7 C 74 16 147/84 H 92 (1) CHF (congestive heart failure) Heart failure chronicity: unspecified Heart failure type: unspecified Qualified Code(s): I50.9 - Heart failure, unspecified
--- NOTE | 2018-09-09 11:49 | Fluoroscopy Report ---
FL video swallow HISTORY: Chronic aspiration pneumonia. TECHNIQUE: Video fluoroscopic evaluation of swallowing was performed in the AP and lateral projection s by the speech pathology staff. The patient is fed nectar-thick and thin liquid barium, a barium coa alis wafer, and barium pudding. FLUOROSCOPY TIME: 3.4 minutes. A cine loop submitted. COMPARISON STUDY: None. FINDINGS: There is normal hyoid excursion and epiglottic deflection. However, there is significant re sidue throughout the hypopharynx with all barium consistencies. Multiple episodes of aspiration ident ified throughout the examination. Some of these episodes were silent. IMPRESSION: 1. Multiple episodes of aspiration. 2. Please see the speech pathologist report for detailed findings and recommendations. Electronically signed by: Aj Gomez M.D. 09/09/2018 11:48 AM
[2018-09-09] MEDS: DIGOXIN 0.125 MG TAB PO SCH (17:30)
[2018-09-10] MEDS: IPRATROPIUM BROMIDE NEB SOLN 0.02% 2.5 ML VIAL INH SCH ×4 (01:41→19:41)
[2018-09-10] MEDS: LEVALBUTEROL HCL 0.63 MG/3 ML NEB NEB SCH ×4 (01:42→19:41)
[2018-09-10] MEDS: PIPERACILLIN/TAZOBACTAM 3.375 GM in DEXTROSE 5% 100 ML IV SCH ×3 (02:25→17:59)
[2018-09-10] MEDS: LEVOTHYROXINE SODIUM 75 MCG TABLET PO SCH (05:22)
--- NOTE | 2018-09-10 07:00 | History & Physical Bridge Note ---
Date of Service September 10, 2018 History & Physical Bridge Note I have examined the patient, reviewed the History & Physical and in the interval since the performance of the History & Physical I have noted the following changes of clinical significance: no changes noted
--- NOTE | 2018-09-10 07:00 | Pre Anesthesia Assessment ---
Date of Service September 10, 2018 Pre Sedation Assessment Vital Signs Temp Pulse Pulse Resp BP BP Pulse Ox 09/10/18 01:42 74 16 92 09/09/18 23:20 36.7 C 74 18 187/96 H 93 09/09/18 19:21 73 18 94 09/09/18 17:30 78 09/09/18 16:31 36.4 C L 76 19 167/82 H 92 09/09/18 15:06 36.5 C 68 16 138/77 96 09/09/18 14:14 62 18 93 09/09/18 08:14 96 09/09/18 07:59 36.7 C 83 20 160/89 H 09/09/18 07:19 71 14 94 Cardiovascular RRR, no murmur, no edema + peripheral pulses normal Respiratory normal respiratory effort, lungs clear to auscultation Pre-Sedation Airway Assessment Smoking Status: Never smoker Hx Sleep Apnea: No Hx Difficult Intubation: No Short, Thick Neck: No Thyromental Distance: > or= 3.5 Finger Breadths Oral Cavity: + WNL Mallampati Class: II ASA: ASA3 Notes The planned sedation has been discussed with the patient. Informed Consent was obtained. I have identified the patient, determined the appropriateness of sedation and have assessed the patient immediately prior to the procedure. All medicine(s) and interventions are by my order.
[2018-09-10 07:09] LABS: BUN Creatinine Ratio 27.7 (10-20); Calcium 8.4 mg/dl (8.5-10.1); Creatinine Clr Calc Pharmacy 53.1 ml/min; Est GFR (African American) 62.7; Est GFR (Non-African American) 54.1; Potassium 4.5 mmol/L (3.5-5.1)
[2018-09-10] MEDS ORDERED: fentaNYL citrate 100 MCG/2 ML VIAL ONE (09:21)
[2018-09-10] MEDS ORDERED: NALOXONE HCL 0.4 MG/1 ML VIAL/CARP ONE (09:38)
[2018-09-10] MEDS: ASPIRIN 81 MG ECTAB PO SCH (09:44)
[2018-09-10] MEDS: POTASSIUM CHLORIDE 10 MEQ TABCR PO SCH ×2 (09:44→21:37)
[2018-09-10] MEDS: PARoxetine HCl 10 MG TAB PO SCH (09:45)
[2018-09-10] MEDS: ATENOLOL 25 MG TABLET PO SCH (09:46)
[2018-09-10] MEDS: CALCITRIOL 0.25 MCG CAPSULE PO SCH (09:46)
[2018-09-10] MEDS: LISINOPRIL 40 MG TAB PO SCH (09:48)
[2018-09-10] MEDS: SIMVASTATIN 40 MG TAB PO SCH (09:48)
[2018-09-10] MEDS: MAGNESIUM HYDROXIDE SUSP 30 ML UDC PO SCH (09:52)
[2018-09-10] MEDS: METHADONE HCL 10 MG TAB PO SCH ×2 (09:53→20:41)
[2018-09-10] MEDS ORDERED: LIDOCAINE 4% INH SOLN 4 ML BTL INFIL STA (10:00)
[2018-09-10] MEDS ORDERED: MIDAZOLAM HCL 1 MG/ML 2ML VIAL IV STA (10:00)
[2018-09-10] MEDS ORDERED: LIDOCAINE HCL 2% (LOCAL) INJ 50 ML VIAL INFIL STA (10:00)
[2018-09-10] MEDS ORDERED: LIDOCAINE HCL VISCOUS SOLN 2% 15 ML UDC MT ONE (10:00)
[2018-09-10] MEDS ORDERED: LEVALBUTEROL HCL 1.25 MG/3 ML NEB NEB STA (10:00)
[2018-09-10] MEDS ORDERED: OXYMETAZOLINE 0.05% 30 ML BTL ONE (10:00)
[2018-09-10] MEDS ORDERED: fentaNYL citrate 100 MCG/2 ML VIAL IV ONE (10:00)
--- NOTE | 2018-09-10 10:10 | Critical Care Consultation ---
Date of Consultation September 10, 2018 Assessment & Plan (1) Admitted to intensive care unit: Reason Critically Ill: Intractable pain secondary to administration of Narcan for patient is chronically on methadone as an outpatient Neuro - [facility] ICU: No neurological deficits; no confusion Cardiac - History of CAD with right-sided heart failure Status post drug-eluting stent in 2006 Atrial fibrillation chronically -no anticoagulation since March 2018 secondary to falls Continue atenolol, digoxin, enalapril, statin Respiratory - History of COPD and emphysema * Continue nebulizer treatments * Oxygenation adequate on 2 L of supplemental oxygen via nasal cannula * No home O2 use History of DVT/pulmonary embolus * No current indication for anticoagulation History of obstructive sleep apnea * Currently does not use home CPAP for several months * Reports that machine fell off a bedside table and broke -has not had it repaired or replaced * Continue outpatient treatment GI - History of GERD -continue ranitidine RENAL/LYTES - Chronic kidney disease stage III Creatinine today is 1.27 Follow serial labs No current electrolyte imbalance - Continue with urinal ENDO - Hypothyroidism -continue levothyroxine HEME - Chronic anemia -hemoglobin stable at 8.3 Follow serial labs Platelet count 207,000 History of autologous stem cell transplant in [place] - Recent hospitalization for MRSA bacteremia Completed 6 weeks of antibiotic treatment outpatient with ceftriaxone Continue contact precautions for history of MRSA No other indication of infectious disease at this time LINES/IV ACCESS - Peripheral IVs in place x2 Previous admission IV team was unable to obtain PICC line placement No indication for central line at this time DVT PROPHYLAXIS - No chemical prophylaxis at this time secondary chronic anemia and bleeding on bronchoscopy Mechanical prophylaxis per primary team CCT: 60 minutes independent of any procedures Thank you for including us in the care of this patient. Please refer to Dr. Gaytan's addendum for further recommendations. (2) Intractable pain: Admitted urgently to the intensive care unit for pain control status post bronchoscopy Patient inadvertently given Narcan instead of Romazicon Patient chronically on methadone 5 mg p.o. twice daily Received 125 mcg of IV fentanyl during the bronchoscopy On arrival in the intensive care unit administered an additional 50 mcg of IV fentanyl and 5 mg of methadone p.o. Within 30 to 45 minutes patient's pain was better controlled and continues to improve No indication for CENSUS TAKER or IV drip Continue to monitor (3) COPD (chronic obstructive pulmonary disease): SaO2 100% on Oxymask Convert to nasal cannula at 2 L/min and titrate as tolerated to between 88 and 92% Patient quit smoking 30 years ago Continue leave albuterol and ipratropium nebs as needed (4) Multiple myeloma: Induction chemotherapy in 1993 Most recent note from Dr. Maki 08/18/2018 -patient reportedly (cured) Autologous stem cell transplant x2 in 1993 -in remission since that time Most recent bone scan August 2011 Continue outpatient monitoring (5) Atrial fibrillation: Continue digoxin and atenolol Patient stopped anticoagulation with warfarin in March 2018 secondary to chronic falls INR on presentation for admission was 1.1 Continue to monitor on telemetry Rate is currently in the 70s Telemetry rhythm appears to be atrial fibrillation (6) History of coronary artery disease: Status post PCI with drug-eluting stent 2006 to the right circumflex; residual disease in the RCA Continue aspirin, beta-musa, enalapril, and statin No current chest pain Continue to monitor on telemetry (7) Anemia of chronic disease: Current hemoglobin 8.3 No evidence of current bleeding Some bleeding on bronchoscopy controlled with cold saline Continue to monitor serial labs Platelet count 207,000 (8) Hx MRSA infection: Recent bacteremia with MRSA Most recent blood culture was 07/24/2018 which was negative Patient transferred to [facility] for rehab status post hospital admission MRSA screening Contact isolation No current indication of sepsis Completed 6 weeks of antibiotic therapy outpatient with ceftriaxone Echocardiogram with no evidence of vegetation on the valves (9) Pleural effusion on right: Bilateral pleural effusions on CT scan and on chest x-ray this admission Pulmonary consulted and following We will do bedside ultrasound to quantify Previous thoracentesis with Dr. Valle Continue to monitor (10) Acute pneumothorax: No current pneumothorax on CT or chest x-ray this admission Previous admission showed pneumothorax followed by Dr. Valle Patient with emphysema Continue to monitor (11) History of fall: Multiple falls in the past Taken off anticoagulation for atrial fibrillation secondary to risk of falls Previous fall with right-sided rib fractures No current chest pain, paradoxical chest wall movement, pain to palpation, ecchymosis Fall precautions per nursing protocol (12) CKD (chronic kidney disease), stage III: Baseline creatinine 1.5-1.9 Current creatinine is 1.27 Follow serial labs (13) Hypothyroidism: Continue levothyroxine (14) GARRETT (obstructive sleep apnea): Patient has CPAP machine at home but does not use it any longer Patient reports that he knocked it off the bedside table and has not had a repaired Pulmonary is consulted and following Outpatient management Further inpatient management per pulmonary service (15) GERD (gastroesophageal reflux disease): Continue ranitidine (16) DVT prophylaxis: No chemical prophylaxis at this time secondary to possible hemoptysis Bleeding found on bronchoscopy and controlled with cold saline Mechanical prophylaxis per hospitalist team History of Present Illness Reason for Consultation: Intractable pain Requesting Physician: Dr. Agrawal Attending Physician: Kimber Avila History of Present Illness Attending: Dr. Gaytan Is a 78-year-old male with a past medical history including multiple myeloma, COPD, history of pneumothorax, history of pleural effusion, pulmonary hypertension, hypothyroidism, hypertension, anemia of chronic disease, history of pulmonary embolism, history of DVT, atrial fibrillation, CAD, CHF, right- sided heart failure, pulmonary nodules, chronic diarrhea, chronic kidney disease, obstructive sleep apnea, and GERD. The patient was taken to the bronchoscopy suite for diagnostic bronchoscopy with Dr. Agrawal. He is on chronic methadone for chronic pain secondary to his multiple myeloma. He was given 2 mg of midazolam intraoperatively. He received no additional narcotics during the procedure. Postoperatively the patient was difficult to arouse. Romazicon was ordered to reverse the effect of the benzodiazepine. Narcan was inadvertently given and patient developed sudden and acute intractable pain. He was transferred to the intensive care unit urgently for pain control and monitoring postoperatively. The patient received 125 mcg total of fentanyl IV prior to arrival in the intensive care unit. An additional 50 mcg IV fentanyl was administered. Blood pressure systolically was in the 150s and 160s. His last dose of methadone was 5 mg p.o. last evening. Patient was not hypoxic. Deep breathing techniques were used to assist with pain management and pain was controlled in short order. Patient did complain of cramping of upper arms but no calf pain or pleuritic type pain. The patient denies fever, sweats, chills, rigors. He has no nausea or vomiting. He has chronic diarrhea. He is using a urinal for micturition and denies any difficulty with urination. He denies hematuria. He has no abdominal pain or cramping. He denies shortness of breath or chest pain. He has no other acute complaints. Allergies Allergy/AdvReac Type Severity Reaction Status Date / Time adhesive Allergy Unknown Rash and Verified 09/06/18 16:19 blisters Home Medications Home Medications Medication Instructions Recorded Confirmed Type Artificial Tears (PF) 1 - 2 drp OPHTHALMIC (EYE) 03/30/18 09/06/18 History DIRECTED PRN aspirin [Aspirin Low Dose] 81 mg PO QAM 03/30/18 09/06/18 History calcitriol 0.25 mcg PO 2XWK 03/30/18 09/06/18 History digoxin 62.5 mcg PO QAM 03/30/18 09/06/18 History levothyroxine 75 mcg PO QAM 03/30/18 09/06/18 History lisinopril 40 mg PO QAM 03/30/18 09/06/18 History paroxetine HCl 30 mg PO QAM 03/30/18 09/06/18 History ranitidine HCl 150 mg PO QAM 03/30/18 09/06/18 History simvastatin 40 mg PO QAM 03/30/18 09/06/18 History potassium chloride 10 meq PO BID 07/16/18 09/06/18 History atenolol 12.5 mg PO QAM 09/06/18 09/06/18 History methadone 5 mg PO BID 09/06/18 09/06/18 History Patient History Medical History History of pulmonary embolism (Chronic) GERD (gastroesophageal reflux disease) (Chronic) Depression (Chronic) GARRETT (obstructive sleep apnea) (Chronic) Chronic back pain (Chronic) Hypothyroidism (Chronic) Multiple myeloma (Chronic) 1991 - chemo and radiation In remission CKD (chronic kidney disease), stage III (Chronic) Hypertension A-fib (Chronic) Right-sided heart failure (Chronic) CAD (coronary artery disease) (Chronic) DVT (deep venous thrombosis) (Resolved) Anticoagulant long-term use (Chronic) Surgical History H/O inguinal hernia repair (Chronic) History of cholecystectomy (Chronic) History of lumbar surgery (Chronic) Family History Other Coronary heart disease Diabetes Hypertension Leukemia Social History Preferred Language: Ecuadorean Communication Ability: Effective Combat Systems Operator Required: No Beliefs That Will Affect Care: Jewish Jewish Beliefs: Samaritan marital status: Current Living Situation: Spouse Other Information That Helps Us Care for You: No Feels Safe at Home: Yes Safety Concerns: Feels Safe At This Time Smoking Status: Never smoker Do You Dip or Chew Tobacco: No Second Hand Exposure: No Hx Alcohol Use: No Hx Substance Use: No Review of Systems 2 Review of Systems: All systems reviewed & are unremarkable except as noted in HPI & below Physical Exam Physical Exam: GENERAL : Moderate acute distress secondary to pain EYES: No icterus, gaze conjugate. Pupils are equal and reactive NOSE: No evidence of epistaxis. No evidence of septal breech MOUTH: No lesions or candidiasis. No teeth. Dentures are not in place. NECK: Supple. No JVD LUNGS: CTA B/L, no wheezes, rales or rhonchi. Breath sounds are equal to bilateral bases HEART: Irregular, irregular, tachycardic in the low 100s. Atrial fibrillation on telemetry ABDOMEN: Soft, NT, ND, BS Present. EXTREMITIES: No LE edema, pedal pulses intact. No calf tenderness or Homans sign. No asymmetrical edema NEURO: A&OX3. No evidence of neurological deficit on exam Results & Data Vital Signs (Past 12 Hours) Vital Signs Temp Pulse Pulse Pulse Resp BP BP 09/10/18 09:05 110 H 22 174/102 H 09/10/18 08:55 112 H 22 168/102 H 09/10/18 08:45 110 H 24 168/102 H 09/10/18 08:35 106 H 22 184/102 H 09/10/18 08:25 36.3 C L 110 H 26 H 180/100 H 09/10/18 08:20 108 H 26 H 174/104 H 09/10/18 08:15 83 22 200/103 H 09/10/18 08:10 86 22 192/108 H 09/10/18 08:05 79 20 185/102 H 09/10/18 07:56 79 20 198/102 H 09/10/18 07:30 36.7 C 81 20 182/104 H 09/10/18 07:04 76 18 09/10/18 01:42 74 16 09/09/18 23:20 36.7 C 74 18 187/96 H Pulse Ox 09/10/18 09:05 98 09/10/18 08:55 96 09/10/18 08:45 96 09/10/18 08:35 98 09/10/18 08:25 99 09/10/18 08:20 98 09/10/18 08:15 98 09/10/18 08:10 98 09/10/18 08:05 100 09/10/18 07:56 100 09/10/18 07:30 100 09/10/18 07:04 99 09/10/18 01:42 92 09/09/18 23:20 93 Laboratory Results 09/09/18 07:37 09/10/18 05:46 Diagnostic Findings FL video swallow HISTORY: Chronic aspiration pneumonia. TECHNIQUE: Video fluoroscopic evaluation of swallowing was performed in the AP and lateral projections by the speech pathology staff. The patient is fed nectar-thick and thin liquid barium, a barium coated wafer, and barium pudding. FLUOROSCOPY TIME: 3.4 minutes. A cine loop submitted. COMPARISON STUDY: None. FINDINGS: There is normal hyoid excursion and epiglottic deflection. However, there is significant residue throughout the hypopharynx with all barium consistencies. Multiple episodes of aspiration identified throughout the examination. Some of these episodes were silent. IMPRESSION: 1. Multiple episodes of aspiration. 2. Please see the speech pathologist report for detailed findings and recommendations. Electronically signed by: Aj Gomez M.D. 09/09/2018 11:[address] chest wo con CT DOSE: 297.52 mGy.cm HISTORY: Loculated effusion/pneumonitis TECHNIQUE: Multiaxial CT images of the chest were performed without contrast. A dose lowering technique was utilized adhering to the principles of ALARA. COMPARISON: Chest CT 07/20/2018. FINDINGS: No pneumothorax. The left airways appear patent. There is near complete mucoid opacification of the bronchus intermedius and right middle and lower lobe bronchi. Interval progression of the moderate right and small left pleural effusions. The visualized unenhanced liver and spleen are unremarkable. The heart remains enlarged. Coronary artery calcifications are noted. The thoracic aorta is normal in caliber. Diffuse body wall edema. Lumbar spine posterior fusion hardware is partially visualized. Old bilateral healed rib fractures. Progressive consolidation within the bases of the lower lobes as well as patchy areas consolidation within the right middle lobe and lingula. Small focal areas of groundglass opacity within the left upper lobe favor mild inflammatory/infectious change. IMPRESSION: 1. Increase in size in the moderate right and small left pleural effusions. 2. Progressive consolidation within the lung bases as well as near complete mucoid opacification of the bronchus intermedius and right middle and lower lobe bronchi. This may represent an aspiration pneumonia. 3. Mild emphysema. 4. Additional findings as described above. Electronically signed by: Aj Gomez M.D. 09/07/2018 5:33 PM Medications Administered Fentanyl 125 mcg IV aggregately during the bronchoscopy Fentanyl 50 mcg IV administered on arrival in the ICU Scheduled dose of methadone 5 mg p.o. administered on arrival in the ICU Critical Care Time Critical Care Time: Yes Total Critical Care Time: 60
[2018-09-10] MEDS ORDERED: ACETYLCYSTEINE 20% INHAL SOLN ***DISPENSED BY RESP. INH SCH (10:15)
--- NOTE | 2018-09-10 10:51 | Post Operative Brief Note ---
Immediate Post Op Note v1 Date of Surgery September 10, 2018 Pre & Post Diagnosis Operation Date: 09/10/18 08:00 Pre-Op Diagnosis: CHF EXACERBATION Post-Op Diagnosis: CHF EXACERBATION/Chronic Aspiration pneumonia w mucoid impaction Hemoptysis sec to chronic inflammation/?lesion or plaque RLL orifice medial wall Severe oropharyngeal candidiasis Severe chronic pain Procedure Operation Date: 09/10/18 08:00 Actual Procedures p Bronchoscopy Radiology - Reji Agrawal MD Surgeon Reji Agrawal MD Service Unit Operator Oil Well none Estimated Blood Loss 0 Findings Consistent with Post-Op Diagnosis Chronic Aspiration pneumonia Complications Hypersomnolent Reversed w .2 mg Narcan Severe intractable pain Bleeding from "lesion/and/or plaque RLL orifice medial wall instilled w iced- salinge lavage w cessation of bleeding Transferred to ICU for IV narcotic pain control and observation Disposition Accompanied Patient To Recovery: Yes Disposition: Surgical ICU Overlapping Procedure I was present for: the critical portions of procedure. I was immediately available: during the entire case. Back up surgeon: was not required during procedure.
--- NOTE | 2018-09-10 10:52 | Post Anesthesia Assessment ---
Date of Service September 10, 2018 Post Sedation Assessment Vital Signs Temp Pulse Pulse Pulse Resp BP BP 09/10/18 10:38 67 14 169/93 H 09/10/18 09:05 110 H 22 174/102 H 09/10/18 08:55 112 H 22 168/102 H 09/10/18 08:45 110 H 24 168/102 H 09/10/18 08:35 106 H 22 184/102 H 09/10/18 08:25 36.3 C L 110 H 26 H 180/100 H 09/10/18 08:20 108 H 26 H 174/104 H 09/10/18 08:15 83 22 200/103 H 09/10/18 08:10 86 22 192/108 H 09/10/18 08:05 79 20 185/102 H 09/10/18 07:56 79 20 198/102 H 09/10/18 07:30 36.7 C 81 20 182/104 H 09/10/18 07:04 76 18 09/10/18 01:42 74 16 09/09/18 23:20 36.7 C 74 18 187/96 H 09/09/18 19:21 73 18 09/09/18 17:30 78 09/09/18 16:31 36.4 C L 76 19 167/82 H 09/09/18 15:06 36.5 C 68 16 138/77 09/09/18 14:14 62 18 Pulse Ox 09/10/18 10:38 93 09/10/18 09:05 98 09/10/18 08:55 96 09/10/18 08:45 96 09/10/18 08:35 98 09/10/18 08:25 99 09/10/18 08:20 98 09/10/18 08:15 98 09/10/18 08:10 98 09/10/18 08:05 100 09/10/18 07:56 100 09/10/18 07:30 100 09/10/18 07:04 99 09/10/18 01:42 92 09/09/18 23:20 93 09/09/18 19:21 94 09/09/18 17:30 09/09/18 16:31 92 09/09/18 15:06 96 09/09/18 14:14 93 Recovery Score Activity: Moves 4 extremities Respiration: Deep Breath/Cough Circulation: +/-20% PreAnes Value Consciousness: Fully Awake Oxygen Saturation: O2 needed for >90% Post Anesthesia Score: 9 Discharge Sedation Level of Care: Higher Level of Care Post Sedation Plan On clinical assessment, the patient appears to have tolerated the sedation without complications. Patient is recovering as anticipated. Patient will continue to be monitored by nursing and may be discharged when sedation discharge criteria are met per below protocol. Upon Completions of procedure and additional 15 minutes continue every 5 minute vital signs and the P.A.R. score; then discharge to a Phase I or Fast Track to Phase II per the following guidelines: * Discharge Patient to appropriate Phase II area if PAR is 8 or greater or return to pre- procedure baseline. The post - procedure orders will be as directed. * If PAR score is less than 8 or not return to pre-procedure baseline then patient will follow Phase I monitoring till PAR is reached for Phase II. The Phase I may be done in procedure room or may call to secure a Phase I area. * �If naloxone or flumazenil are used for reversal, hold in Phase I for riccardo nued monitoring from when last reversal dose was given for a minimum of 60 minutes or longer pending the nurse and/or physician discretion of patient condition before discharge to Phase II.� Please call the Sedation Physician to re-evaluate and complete post-note for discharge to Phase II area. Do NOT discharge from procedure sedation or Phase 1 until post- sedation evaluation note is complete by procedure /sedation MD Sedation Discharge Instructions to be given to the patient at discharge to home.
[2018-09-10] MEDS: DIGOXIN 0.125 MG TAB PO SCH (16:38)
--- NOTE | 2018-09-10 17:00 | Hospitalist Progress Note ---
Date of Service September 10, 2018 Assessment & Plan (1) Postprocedural state: Patient is post bronchoscopy today. Post bronchoscopy he had intractable pain due to administration of Narcan in setting of chronic methadone intake. He was also hypoxic during this time. Was briefly admitted to ICU for stabilization. -Received methadone dose and pain is controlled -Ok to transfer back to med surg (2) Shortness of breath: Possible aspiration as had low grade fever 99 F D/D considered: Cardiac etiology- Per cardiology- May be mild CHF +nt, Chronic conditions - Atrial fib, CAD - stable. PHT per prior Echo with normal LV Function. No sig right ventricular dysfunction or right heart failure. COPD- No signs of COPD exacerbation. Multiple Myeloma-treated for multiple myeloma 25 years ago in [place]. Received 2 stem cell transplants. Disease free for at least 2 decades. During last admission received blood transfusions. CBC stable currently with no signs of active bleeding or drop -Pulmonary was consulted- Bronchoscopy on 09/10/18-consistent with aspiration, secretions present. Bleeding from lesion/and/or plaque RLL orifice medial wall instilled with iced-saline lavage with cessasion of bleeding. -Video swallow done- Aspiration risk per d/w Speech. D/w family and patient- NO PEG tube ,accepts risk of aspiration (3) CAD (coronary artery disease): Experiencing dyspnea on exertion without chest pain. -No s/s of ACS. Tro 0.036 -Continue aspirin, atenolol, simvastatin. (4) CHF (congestive heart failure): -History of right-sided CHF and moderate . -Not on diuretics. (5) Abnormal chest xray: Chest x-ray showed bilateral pleural effusions with bibasilar densities similar to previous films. May or may not have infection. -Receiving IV levofloxacin and piperacillin / tazobactam. -Pulmonary Medicine consulted- Plan is for bronchoscopy tomorrow (6) Low grade fever: Reported low grade fever at home. Recent course of IV antibiotic therapy for MSSA Bacteremia with no apparent source identified. Repeat blood cultures obtained- negative so far. (7) Atrial fibrillation: -Rate controlled on digoxin and atenolol. -No long-term anticoagulants due to chronic heme positive stools. (8) Hypertension: -Continue atenolol and lisinopril. (9) Pulmonary nodules: -Pulmonary nodules up to [address] chest 07/20/18. -Follow per guidelines. (10) GERD (gastroesophageal reflux disease): -Continue ranitidine. (11) CKD (chronic kidney disease), stage III: -Serum creatinine down to 1.35 -Follow. (12) Hypothyroidism: -Continue levothyroxine. (13) Anemia of chronic disease: Baseline hemoglobin runs around 9. Probably anemia of chronic disease. Possible bone marrow suppression due to recent infection. History of multiple myeloma. Intermittent heme + stools- may have chronic blood loss. Hemoglobin at time of admission was 9.0 and now stable in the range of 8 -Monitor H & H -Consider outpatient follow up with hematology. (14) DVT prophylaxis: -No anticoagulants because of recent & chronic heme + stools. -SCD's and TEDS not ordered because of lower extremity edema and venous stasis ulcers. -Ambulate as able. (15) Discharge planning issues: Okay to transfer to [facility] from ICU -Family Medicine follow-up with Dr. Marin -PT/OT ordered. Family by bedside. DNR/DNI confirmed. Would like to take him home but needs more help at home. Requesting home health services Subjective Patient had bronchoscopy done today morning. Post bronchoscopy he had intractable pain secondary to administration of Narcan for patient who is chronically on methadone as an outpatient. Was briefly admitted to ICU for hypoxia, intractable baker. On my evaluation was seen, patient is out of bed to chair. On 2 L of oxygen. Denies any complaints family at bedside Physical Exam Physical Exam: GENERAL : Moderate acute distress secondary to pain LUNGS: CTA B/L, no wheezes, rales or rhonchi. Breath sounds are equal to bilateral bases HEART: Irregular, irregular, tachycardic in the low 100s. Atrial fibrillation on telemetry ABDOMEN: Soft, NT, ND, BS Present. EXTREMITIES: No LE edema, pedal pulses intact. No calf tenderness or Homans sign. No asymmetrical edema NEURO: A&OX3. No evidence of neurological deficit on exam Results & Data Vital Signs (Past 12 Hours) Vital Signs Temp Pulse Pulse Pulse Resp BP BP 09/10/18 14:01 168/97 H 09/10/18 13:54 74 16 09/10/18 11:01 09/10/18 10:38 67 14 169/93 H 09/10/18 09:05 110 H 22 174/102 H 09/10/18 08:55 112 H 22 168/102 H 09/10/18 08:45 110 H 24 168/102 H 09/10/18 08:35 106 H 22 184/102 H 09/10/18 08:25 36.3 C L 110 H 26 H 180/100 H 09/10/18 08:20 108 H 26 H 174/104 H 09/10/18 08:15 83 22 200/103 H 09/10/18 08:10 86 22 192/108 H 09/10/18 08:05 79 20 185/102 H 09/10/18 07:56 79 20 198/102 H 09/10/18 07:30 36.7 C 81 20 182/104 H 09/10/18 07:04 76 18 Pulse Ox 09/10/18 14:01 09/10/18 13:54 99 09/10/18 11:01 96 09/10/18 10:38 93 09/10/18 09:05 98 09/10/18 08:55 96 09/10/18 08:45 96 09/10/18 08:35 98 09/10/18 08:25 99 09/10/18 08:20 98 09/10/18 08:15 98 09/10/18 08:10 98 09/10/18 08:05 100 09/10/18 07:56 100 09/10/18 07:30 100 09/10/18 07:04 99 (1) CHF (congestive heart failure) Heart failure chronicity: unspecified Heart failure type: unspecified Qualified Code(s): I50.9 - Heart failure, unspecified
[2018-09-10] MEDS ORDERED: ARTIFICIAL TEARS OP PRN (19:00)
[2018-09-10] MEDS: LEVOFLOXACIN/D5W 750 MG/150 ML BAG IV SCH (20:47)
--- NOTE | 2018-09-10 21:39 | Operative Report ---
DATE OF OPERATION: 09/10/2018 TIME: 0800 hours. PROCEDURE: Fiberoptic bronchoscopy with bronchoalveolar lavage with and without biopsy. INDICATIONS: Persistent right lower lobe/multifocal pneumonia, probable chronic aspiration pneumonia with loculated right pleural effusion. ANESTHESIA PREOPERATIVELY: None. ANESTHESIA DURING PROCEDURE: IV Versed 2 mg. Moderate conscious sedation was utilized at 0805 hours and completed at 0820 hours. DETAILS OF PROCEDURE: Fiberoptic bronchoscope was inserted into the right naris with minimal difficulty and passed to the level of the true vocal cords. The cords appear to approximate normally with phonation without evidence for lesions or paralysis. Severe oropharyngeal candidiasis was seen. The cords were anesthetized. The scope was then introduced in the trachea and right and left tracheobronchial tree. The trachea was teaming with thick mucoviscous secretion that was lavaged until clear. The left main stem bronchus was explored initially and significant mucopurulent mucoviscous secretion was seen throughout the left tracheobronchial tree. On several occasions manual occlusion of the suction port was applied and the mucoid impaction was then removed as the scope was removed from the tracheobronchial tree and the nares. The scope was cleared and reinserted into a similar position without difficulty. The 5 mL of 20% Mucomyst was instilled throughout the left tracheobronchial tree and the scope was then withdrawn to the tanya, which was sharp and then inserted into the right mainstem and the other mL of 20% Mucomyst was instilled throughout the right tracheobronchial tree. Following the instillation the right mainstem bronchus was copiously lavaged with normosol and the aspirate sent for appropriate studies. The right upper lobe, the apical posterior, anterior segments, bronchus intermedius, right middle lobe and the medial lateral segments were then cleared of debris and the right lower lobe was lavaged copiously with normosol. The scope was then withdrawn to the tanya and reinserted into the left tracheobronchial tree and once again each lobar and segmental bronchus was copiously lavaged with normosol and the aspirate sent for appropriate studies. Severe inflammatory mucosal change was seen throughout the left tracheobronchial tree. The scope was then withdrawn again to the tanya and reinserted and the right lower lobe showed evidence for volume loss and fish mouthing with erosive changes seen involving the mucosa of all basal segments of right lower lobe. The medial wall of the right lower lobe orifice at the level of the superior segment showed continuous oozing of bright red blood. A lesion or "plaque-like" lesion was seen in the medial wall of the right main stem bronchus just superior to the right lower lobe orifice. Iced saline lavage was utilized and the bleeding eventually abated. No brushings or biopsies were attempted due to the bleeding. Scope was then withdrawn. The patient appeared somewhat hypersomnolent. We administered 0.2 mg of IV Narcan because of the hypersomnolence and because of the concern over bleeding from this lesion and the need for patient to be more alert and awake in order not to aspirate the blood. He immediately complained of severe bone pain involving his arms and legs and was inconsolable. Within 30 minutes we administered a total of 125 mcg of IV fentanyl which did not appear to be effective and a decision was made to transfer him to ICU under the care of the assistant farm operations manager in order to either place him on an intravenous fentanyl or narcotic drip for pain control or intermittent utilization of IV narcotics with possible anxiolytics. Important to note, patient was not complaining of significant pain prior to the procedure and had been on methadone 5 mg p.o. b.i.d. maintenance. OVERALL ASSESSMENT: 1. Severe oropharyngeal thrush or candidiasis. 2. Chronic aspiration pneumonia with virtual occlusion of the right greater than left tracheobronchial tree with mucoid impaction lavaged until clear. 3. Plaque like lesion medial wall, right lower lobe, right main stem bronchus with a moderate amount of bleeding which abated following installation of iced saline lavage. Cannot rule out a metastatic implant versus "viral lesion." Specimen has been sent for appropriate studies. I attest to the content of the Intraoperative Record and any orders documented therein. Any exception s are noted below.
[2018-09-10] MEDS ORDERED: LORazepam 0.5 MG TAB PO STA (22:55)
[2018-09-11] MEDS ORDERED: LORazepam 0.5 MG TAB PO STA (01:25)
[2018-09-11] MEDS: LEVALBUTEROL HCL 0.63 MG/3 ML NEB NEB SCH ×4 (01:39→19:10)
[2018-09-11] MEDS: IPRATROPIUM BROMIDE NEB SOLN 0.02% 2.5 ML VIAL INH SCH ×4 (01:39→19:11)
--- NOTE | 2018-09-11 01:40 | Hospitalist Progress Note ---
Date of Service September 11, 2018 Subjective Made aware by RN of NSVT episode. Patient just complaining of insomnia. SBP 160-200s last 48 hours. AP NSVT AM Atenolol now , increase dose to 25 mg PO daily given uncontrolled blood pressure Check electrolytes Hold Levaquin given QTC prolongation on EKG on admission. Will relay to AM provider. Results & Data Vital Signs (Past 12 Hours) Vital Signs Temp Pulse Pulse Resp BP BP Pulse Ox 09/10/18 23:41 36.4 C L 72 17 169/98 H 91 09/10/18 19:42 72 20 91 09/10/18 18:53 74 09/10/18 17:16 79 164/91 H 2 L 09/10/18 17:00 72 09/10/18 16:00 74 09/10/18 15:00 71 09/10/18 14:01 168/97 H 09/10/18 13:54 74 16 99
[2018-09-11] MEDS ORDERED: ATENOLOL 25 MG TABLET PO SCH (01:45)
[2018-09-11] MEDS: PIPERACILLIN/TAZOBACTAM 3.375 GM in DEXTROSE 5% 100 ML IV SCH (01:50)
[2018-09-11 02:11] LABS: Basophils # (auto) 0.01 K/uL (0-0.2); Basophils % (auto) 0.3 %; Eosinophils # (auto) 0.04 K/uL (0-0.5); Hematocrit (blood only) 29.1 % (42-52); Hemoglobin 9.2 g/dL (14.0-18.0); Immature Granulocytes # (auto) 0.04 K/uL (0.00-0.02); Lymphocytes # (auto) 0.57 K/uL (1.2-3.4); Lymphocytes % (auto) 14.9 %; Mean Corpuscular Hgb Conc 31.6 g/dL (32-36); Mean Corpuscular Volume 98.3 fL (80-100); Mean Platelet Volume 8.7 fL (7.4-10.4); Monocytes # (auto) 0.32 K/uL (0.11-0.59); Monocytes % (auto) 8.4 %; Neutrophils # (auto) 2.85 K/uL (1.4-6.5); Neutrophils % (auto) 74.4 %; Platelet Count 235 K/uL (130-400); RDW Coefficient of Variation 17.2 % (11.5-14.5); RDW Standard Deviation 62.2 fL (36.4-46.3); Red Blood Count 2.96 M/uL (4.7-6.1); White Blood Count 3.83 K/uL (4.8-10.8)
[2018-09-11] MEDS ORDERED: METOPROLOL TARTRATE 1 MG/ML VIAL IV STA (02:31)
[2018-09-11 02:35] LABS: BUN Creatinine Ratio 23.7 (10-20); Calcium 8.6 mg/dl (8.5-10.1); Creatinine Clr Calc Pharmacy 47.8 ml/min; Est GFR (African American) 55.3; Est GFR (Non-African American) 47.7; Magnesium 2.2 mg/dl (1.8-2.4); Potassium 4.3 mmol/L (3.5-5.1)
[2018-09-11] MEDS ORDERED: SODIUM CHLORIDE 0.9% 500 ML IV ONE (02:45)
[2018-09-11] MEDS: LEVOTHYROXINE SODIUM 75 MCG TABLET PO SCH (05:22)
[2018-09-11] MEDS: LISINOPRIL 40 MG TAB PO SCH (10:16)
[2018-09-11] MEDS: METHADONE HCL 10 MG TAB PO SCH ×2 (10:16→21:39)
[2018-09-11] MEDS: PARoxetine HCl 10 MG TAB PO SCH (10:17)
[2018-09-11] MEDS: SIMVASTATIN 40 MG TAB PO SCH (10:17)
[2018-09-11] MEDS: DOCUSATE SODIUM 100 MG CAP PO SCH (10:45)
[2018-09-11] MEDS: PSYLLIUM 58.6% POWDER PACKET PO SCH (10:54)
[2018-09-11] MEDS: POTASSIUM CHLORIDE 10 MEQ TABCR PO SCH ×2 (10:55→21:39)
[2018-09-11] MEDS: ASPIRIN 81 MG ECTAB PO SCH (10:55)
[2018-09-11] MEDS: ATENOLOL 25 MG TABLET PO SCH (10:55)
--- NOTE | 2018-09-11 12:13 | Hospitalist Progress Note ---
Date of Service September 11, 2018 Assessment & Plan (1) Hypoxia: Oxygen requirement - 3 L now None prior to hospitalization and prior to bronchoscopy. Monitor and try to wean as tolerated (2) Shortness of breath: Possible aspiration as had low grade fever 99 F Likely Aspiration pneumonia D/D considered: Cardiac etiology- Per cardiology- May be mild CHF +nt, Chronic conditions - Atrial fib, CAD - stable. PHT per prior Echo with normal LV Function. No sig right ventricular dysfunction or right heart failure. COPD- No signs of COPD exacerbation. Multiple Myeloma-treated for multiple myeloma 25 years ago in [place]. Received 2 stem cell transplants. Disease free for at least 2 decades. During last admission received blood transfusions. CBC stable currently with no signs of active bleeding or drop -Pulmonary was consulted - Bronchoscopy on 09/10/18-consistent with aspiration, secretions present. Bleeding from lesion/and/or plaque RLL orifice medial wall instilled with iced-saline lavage with cessasion of bleeding. -Video swallow done- Aspiration risk per d/w Speech. D/w family and patient- NO PEG tube ,accepts risk of aspiration PLAN : Discontinue Levo (QTC prolonged), Zosyn. Will change to Augmentin BID to complete 7 day course. -Follow up bronchoscopy cultures�Fungal - Neg, Culture- Pin point growth, Aspergillus, CMV, HSV, immunoglobulin, SPEP, Quantiferon TB Gold ordered by pulmonary (3) Non-sustained ventricular tachycardia: Nonsustained V. tach noted on 09/10/2018 night -Levofloxacin was discontinued due to prolonged QTC -Electrolytes stable -Echo 07/18/18- EF 65-70% reviewed - (4) Postprocedural state: Patient is post bronchoscopy 09/10/2018 Post bronchoscopy he had intractable pain due to administration of Narcan in setting of chronic methadone intake. He was also hypoxic during this time. Was briefly admitted to ICU for stabilization. -Received methadone dose and pain is controlled -Was transferred back to floor the same day (5) CAD (coronary artery disease): Experiencing dyspnea on exertion without chest pain. -No s/s of ACS. Tro 0.036 -Continue aspirin, atenolol, simvastatin. (6) CHF (congestive heart failure): -History of right-sided CHF and moderate . -Not on diuretics. (7) Abnormal chest xray: Chest x-ray showed bilateral pleural effusions with bibasilar densities similar to previous films. May or may not have infection. -Receiving IV levofloxacin and piperacillin / tazobactam. -Pulmonary Medicine consulted- Plan is for bronchoscopy tomorrow (8) Low grade fever: Reported low grade fever at home. Recent course of IV antibiotic therapy for MSSA Bacteremia with no apparent source identified. Repeat blood cultures obtained- negative so far. (9) Atrial fibrillation: -Rate controlled on digoxin and atenolol. -No long-term anticoagulants due to chronic heme positive stools. (10) Hypertension: -Continue atenolol and lisinopril. (11) Pulmonary nodules: -Pulmonary nodules up to [address] chest 07/20/18. -Follow per guidelines. (12) GERD (gastroesophageal reflux disease): -Continue ranitidine. (13) CKD (chronic kidney disease), stage III: -Serum creatinine down to 1.35 -Follow. (14) Hypothyroidism: -Continue levothyroxine. (15) Anemia of chronic disease: Baseline hemoglobin runs around 9. Probably anemia of chronic disease. Possible bone marrow suppression due to recent infection. History of multiple myeloma. Intermittent heme + stools- may have chronic blood loss. Hemoglobin at time of admission was 9.0 and now stable in the range of 8 -Monitor H & H -Consider outpatient follow up with hematology. (16) DVT prophylaxis: -No anticoagulants because of recent & chronic heme + stools. -SCD's and TEDS not ordered because of lower extremity edema and venous stasis ulcers. -Ambulate as able. (17) Discharge planning issues: Okay to transfer to [facility] from ICU -Family Medicine follow-up with Dr. Marin -PT/OT ordered. Family by bedside. DNR/DNI confirmed. Would like to take him home but needs more help at home. Requesting home health services Subjective Patient is feeling sleepy as mentions he did not get enough sleep yesterday night. Denies any new complaints Denies any worsening of shortness of breath, cough. No chest pain, fever, chills teletypesetter monitor�nonsustained V. tach and bigeminy. Overnight his atenolol was increased to 25 mg and levofloxacin was held due to QTC prolongation Physical Exam Physical Exam: GENERAL-awake, oriented x3, sleepy no acute distress LUNGS- Air entry bilaterally decrease. No wheezing or rhonchi HEART- Regular rate and rhythm. No murmurs ABDOMEN- Soft, non tender, non distended, Bowel sounds heard. EXTREMITIES- Good peripheral pulses, no edema Results & Data Vital Signs (Past 12 Hours) Vital Signs Temp Pulse Resp BP Pulse Ox 09/11/18 11:59 36.2 C L 68 16 100 09/11/18 11:43 95 09/11/18 07:23 36.7 C 68 18 179/84 H 100 09/11/18 07:06 68 16 100 09/11/18 02:43 36.5 C 68 24 187/98 H 91 09/11/18 01:54 76 179/88 H 09/11/18 01:41 76 18 93 (1) CHF (congestive heart failure) Heart failure chronicity: unspecified Heart failure type: unspecified Qualified Code(s): I50.9 - Heart failure, unspecified
[2018-09-11] MEDS: AMOXICILLIN/CLAVULANATE 500 MG TAB PO SCH (16:18)
[2018-09-11] MEDS: DIGOXIN 0.125 MG TAB PO SCH (16:18)
--- NOTE | 2018-09-11 20:35 | Progress Note ---
DATE: 09/11/2018 PULMONARY PROGRESS NOTE TIME: 6:00 p.m. SUBJECTIVE: The patient is being seen by myself for the first time. He is a 78-year-old patient that Dr. Agrawal did bronchoscopy on yesterday. Bronchoscopy showed evidence of oral candidiasis. He appeared to have chronic aspiration pneumonia with virtual occlusion of the tracheobronchial tree, right greater than left with mucoid impaction. There was a plaque-like lesion on the medial wall of the right lower lobe main stem bronchus with a moderate amount of bleeding. Post-procedure, the patient went to ICU for stabilization. He states he is not feeling much better. He remains short of breath. He did cough up some secretions 3 or 4 times today. He states they were brown. He did not notice any blood. OBJECTIVE: GENERAL: The patient looks chronically ill. He appears that he has lost a lot of weight and he confirms he has lost a lot of weight. Weight today 77.1. BMI is only 21.8. The patient has a large amount of facial hair. HEART: Cardiac rate 75 per minute. The rhythm is irregularly irregular. Blood pressure elevated at 168/88. LUNGS: Lung santo revealed decreased breath sounds at both bases. Respiratory rate 16. Saturation 94% on 2 L nasal cannula. ABDOMEN: Revealed it to be soft. This area suggests significant weight loss. No tenderness to palpation. EXTREMITIES: Reveals large areas of ecchymosis and skin color changes. No edema noted. DIAGNOSTIC DATA: Review of video swallow done on 09/09/2018 showed multiple episodes of aspiration. White count today is 3.83. Hemoglobin 9.2. Platelets 235,000. Electrolytes show sodium 140, potassium 4.3, chloride 107, bicarbonate 30. BUN 33 with a creatinine of 1.41. Bronchial washing for fungal smear was negative. Bronchial washings for AFB smear was negative. Bronchial washings for Gram stain showed many WBCs, but no organisms. Cytology from bronchial washings showed no malignant cells. Blood was seen with abundant acute inflammatory cells. IMPRESSION: 1. Aspiration pneumonia. 2. Bilateral pleural effusions. RECOMMENDATIONS: The patient is on Augmentin. Would continue with this. I would continue with neb treatments including levalbuterol and ipratropium. He is getting acetylcysteine to assist with secretion clearance.
[2018-09-12] MEDS: LEVOTHYROXINE SODIUM 75 MCG TABLET PO SCH (06:42)
[2018-09-12] MEDS: LEVALBUTEROL HCL 0.63 MG/3 ML NEB NEB SCH (07:38)
[2018-09-12] MEDS: IPRATROPIUM BROMIDE NEB SOLN 0.02% 2.5 ML VIAL INH SCH (07:38)
[2018-09-12] MEDS: METHADONE HCL 10 MG TAB PO SCH (07:52)
[2018-09-12] MEDS: ATENOLOL 25 MG TABLET PO SCH (07:53)
[2018-09-12] MEDS: LISINOPRIL 40 MG TAB PO SCH (07:57)
[2018-09-12] MEDS: PARoxetine HCl 10 MG TAB PO SCH (07:57)
[2018-09-12] MEDS: SIMVASTATIN 40 MG TAB PO SCH (07:58)
[2018-09-12] MEDS: AMOXICILLIN/CLAVULANATE 500 MG TAB PO SCH (07:58)
[2018-09-12] MEDS: POTASSIUM CHLORIDE 10 MEQ TABCR PO SCH (07:59)
[2018-09-12] MEDS: ASPIRIN 81 MG ECTAB PO SCH (07:59)
[2018-09-12] MEDS: MAGNESIUM HYDROXIDE SUSP 30 ML UDC PO SCH (08:00)
[2018-09-12 08:20] LABS: BUN Creatinine Ratio 27.6 (10-20); Calcium 8.7 mg/dl (8.5-10.1); Creatinine Clr Calc Pharmacy 50.7 ml/min; Est GFR (African American) 58.8; Est GFR (Non-African American) 50.7; Potassium 4.6 mmol/L (3.5-5.1)
--- NOTE | 2018-09-12 09:50 | XRay Report ---
XR chest 2V routine CLINICAL HISTORY: 78 years-old Male presenting with lung infiltrates. TECHNIQUE: Portable upright AP view of the chest was obtained. COMPARISON: 09/07/2018. FINDINGS: Atherosclerosis of the aortic arch. Cardiac silhouette enlarged. Pulmonary vascular prominence unchan ged. Moderate bilateral pleural effusions similar to prior with extensive bibasilar opacities. Slight ly diminished aeration of the lung bases in comparison to prior most pronounced on the left. No pneum othorax. Lumbar fusion hardware noted. Residual oral contrast in the large bowel. Gaseous distention of the stomach. IMPRESSION: 1. Slightly worsened aeration of the lung bases with persistent moderate bilateral pleural effusions and extensive basilar consolidation. 2. Cardiomegaly and mild volume overload. Electronically signed by: Efren Milton M.D. 09/12/2018 9:49 AM
[2018-09-12 11:28] LABS: CMV DNA Qnt Real Time PCR <200 IU/mL (<200); CMV DNA Quant PCR <2.30 log IU/mL (<2.30)
[2018-09-12 13:22] LABS: HSV Type 1 DNA Not Detected (Not Detected); HSV Type 2 DNA Not Detected (Not Detected)
--- NOTE | 2018-09-12 13:24 | Hospitalist Progress Note ---
Date of Service September 12, 2018 Assessment & Plan (1) Hypoxia: Hypoxia- Resolved None prior to hospitalization and prior to bronchoscopy. Required after bronchoscopy upto 2.5-3 L, now saturating well on RA Repeat CXR-slightly worsened aeration of lung bases with persistent moderate bilateral pleural effusions and extensive bibasilar consolidation -Clinically patient denies any worsening of SOB, cough. Eager to be discharged. -Discussed the readings with pulmonary and Dr Valle (had thoracentesis -right done in 07/24- transudative with cytology neg). No indication for thoracentesis at this point as clinically stable and hypoxia has resolved. -Dr Valle will call him for a follow up appt in next few days to evaluate need for further evaluation/thoracentesis -Bronchial washings, cultures- neg, cytology neg (2) Shortness of breath: Possible aspiration as had low grade fever 99 F Likely Aspiration pneumonia D/D considered: Cardiac etiology- Per cardiology- May be mild CHF +nt, Chronic conditions - Atrial fib, CAD - stable. PHT per prior Echo with normal LV Function. No sig right ventricular dysfunction or right heart failure. COPD- No signs of COPD exacerbation. Multiple Myeloma-treated for multiple myeloma 25 years ago in [place]. Received 2 stem cell transplants. Disease free for at least 2 decades. During last admission received blood transfusions. CBC stable currently with no signs of active bleeding or drop -Pulmonary was consulted - Bronchoscopy on 09/10/18-consistent with aspiration, secretions present. Bleeding from lesion/and/or plaque RLL orifice medial wall instilled with iced-saline lavage with cessasion of bleeding. Bronch cx neg, cytology neg -Video swallow done- Aspiration risk per d/w Speech. D/w family and patient- NO PEG tube ,accepts risk of aspiration -Bronch cultures- neg PLAN : Will continue with Augmentin BID to complete 7 day course. -Follow up Aspergillus, CMV, HSV, immunoglobulin, SPEP, Quantiferon TB Gold ordered by pulmonary (3) Non-sustained ventricular tachycardia: Nonsustained V. tach noted on 09/10/2018 night -Levofloxacin was discontinued due to prolonged QTC -Electrolytes stable -Echo 07/18/18- EF 65-70% reviewed - (4) Postprocedural state: Patient is post bronchoscopy 09/10/2018 Post bronchoscopy he had intractable pain due to administration of Narcan in setting of chronic methadone intake. He was also hypoxic during this time. Was briefly admitted to ICU for stabilization. -Received methadone dose and pain is controlled -Was transferred back to floor the same day -Follow up bronch results as above (5) CAD (coronary artery disease): Experiencing dyspnea on exertion without chest pain. -No s/s of ACS. Tro 0.036 -Continue aspirin, atenolol, simvastatin. (6) CHF (congestive heart failure): -History of right-sided CHF and moderate . -Not on diuretics. (7) Abnormal chest xray: Chest x-ray showed bilateral pleural effusions with bibasilar densities similar to previous films. May or may not have infection. -S/P IV levofloxacin and piperacillin / tazobactam. -Pulmonary Medicine consulted- Plan is for bronchoscopy tomorrow (8) Low grade fever: Reported low grade fever at home. Recent course of IV antibiotic therapy for MSSA Bacteremia x 6 weeks with iv antibiotics with no apparent source identified. Repeat blood cultures obtained- negative so far. (9) Atrial fibrillation: -Rate controlled on digoxin and atenolol. -No long-term anticoagulants due to chronic heme positive stools. (10) Hypertension: -Continue atenolol and lisinopril. (11) Pulmonary nodules: -Pulmonary nodules up to [address] chest 07/20/18. -Follow per guidelines. (12) GERD (gastroesophageal reflux disease): -Continue ranitidine. (13) CKD (chronic kidney disease), stage III: -Serum creatinine down to 1.35 -Follow. (14) Hypothyroidism: -Continue levothyroxine. (15) Anemia of chronic disease: Baseline hemoglobin runs around 9. Probably anemia of chronic disease. Possible bone marrow suppression due to recent infection. History of multiple myeloma. Intermittent heme + stools- may have chronic blood loss. Hemoglobin at time of admission was 9.0 and now stable in the range of 8 -Monitor H & H -Consider outpatient follow up with hematology recommended (16) DVT prophylaxis: -No anticoagulants because of recent & chronic heme + stools. -SCD's and TEDS not ordered because of lower extremity edema and venous stasis ulcers. -Ambulate as able. DNR/DNI confirmed. (17) Discharge planning issues: Very eager to be discharged today Home health services arrangements made -Family Medicine follow-up with Dr. Marin -PT/OT ordered. Family by bedside. Ok to discharge home Subjective Patient is feeling better. Denies any worsening of shortness of breath, cough. No chest pain, fever, chills Physical Exam Physical Exam: GENERAL-awake, oriented x3, sleepy no acute distress LUNGS- Air entry bilaterally decrease. No wheezing or rhonchi HEART- Regular rate and rhythm. No murmurs ABDOMEN- Soft, non tender, non distended, Bowel sounds heard. EXTREMITIES- Good peripheral pulses, no edema Results & Data Vital Signs (Past 12 Hours) Vital Signs Temp Pulse Pulse Resp BP Pulse Ox 09/12/18 12:20 36.4 C L 73 22 152/82 H 94 09/12/18 08:00 100 09/12/18 07:38 71 16 93 09/12/18 07:03 36.3 C L 71 24 125/82 93 09/12/18 04:00 36.5 C 82 20 152/60 H 100 (1) CHF (congestive heart failure) Heart failure chronicity: unspecified Heart failure type: unspecified Qualified Code(s): I50.9 - Heart failure, unspecified
--- NOTE | 2018-09-12 13:30 | Discharge Summary ---
Date of Service September 12, 2018 Admission HPI Per Admitting Provider 77-year-old male with history of coronary disease, status post stent placement, right-sided CHF, atrial fibrillation, History of PE, anemia of chronic disease, hypertension, dyslipidemia, hypothyroidism, recent bacteremia MSSA, pneumothorax and rib fractures status post fall Presenting with increased shortness of breath, and fever at home. Patient was admitted to [facility] last July 2017 for MSSA bacteremia for which she completed IV ceftriaxone via PICC line at the assisted facility. He was discharged yesterday to home. At home, the patient was noted to have coughing, crackles on auscultation, and low-grade fever. He was then brought to the emergency room for further evaluation. At the ER, patient was received with stable vital signs overall. BNP was noted to be 8066, chest x-ray showed bilateral pleural effusions with bibasilar consolidation unchanged from before. He was given Lasix 40 mg IV and aspirin to 24 mg at the ER. On exam, the patient was seen resting in bed, saturating more than 90% on room air, not in distress. States he feels improved compared to earlier when he was admitted. Does report cough productive of whitish sputum, increased shortness of breath, and low-grade fever of 90 degrees at home. Also reports increasing bilateral leg swelling. Denies other symptoms. Principal Diagnosis 1. Probable aspiration pneumonia 2. Hypoxia, resolved 3. Status post bronchoscopy 4. Nonsustained V. tach 5. Bilateral pleural effusions as per chest x-ray Secondary diagnoses on discharge 1. Atrial fibrillation not on anticoagulants 2. Hypertension 3. Pulmonary nodules 4. GERD 5. CKD stage III 6 Hypothyroidism 7. Anemia of chronic disease 8. Hx of multiple myeloma Discharge Exam GENERAL-awake, oriented x3, sleepy no acute distress LUNGS- Air entry bilaterally decrease. No wheezing or rhonchi HEART- Regular rate and rhythm. No murmurs ABDOMEN- Soft, non tender, non distended, Bowel sounds heard. EXTREMITIES- Good peripheral pulses, no edema Discharge Data Allergies Allergy/AdvReac Type Severity Reaction Status Date / Time adhesive Allergy Unknown Rash and Verified 09/06/18 16:19 blisters Consultations 09/06/18 16:41 ED Decision to Admit Stat 09/06/18 20:19 Consult Cardiology Routine 09/06/18 20:28 Consult Cardiology Routine 09/07/18 09:41 Consult Pulmonology Routine 09/07/18 09:42 Consult Infectious Diseases Routine 09/10/18 09:38 Consult Supervisor Composing Room Routine Procedures Performed Operation Date: 09/10/18 08:00 Actual Procedures p Bronchoscopy Radiology - Reji Agrawal MD Ordered Studies 09/07/18 14:45 CT chest wo con Routine 09/09/18 11:00 FL video swallow Routine Hospital Course (1) Hypoxia: Hypoxia- Resolved None prior to hospitalization and prior to bronchoscopy. Required after bronchoscopy upto 2.5-3 L, now saturating well on RA Repeat CXR-slightly worsened aeration of lung bases with persistent moderate bilateral pleural effusions and extensive bibasilar consolidation -Clinically patient denies any worsening of SOB, cough. Eager to be discharged. -Discussed the readings with pulmonary and Dr Valle (had thoracentesis -right done in 07/24- transudative with cytology neg). No indication for thoracentesis at this point as clinically stable and hypoxia has resolved. -Dr Valle will call him for a follow up appt in next few days to evaluate need for further evaluation/thoracentesis. -Bronchial washings, cultures- neg, cytology neg (2) Shortness of breath: Possible aspiration as had low grade fever 99 F Likely Aspiration pneumonia D/D considered: Cardiac etiology- Per cardiology- May be mild CHF +nt, Chronic conditions - Atrial fib, CAD - stable. PHT per prior Echo with normal LV Function. No sig right ventricular dysfunction or right heart failure. COPD- No signs of COPD exacerbation. Multiple Myeloma-treated for multiple myeloma 25 years ago in [place]. Received 2 stem cell transplants. Disease free for at least 2 decades. During last admission received blood transfusions. CBC stable currently with no signs of active bleeding or drop -Pulmonary was consulted - Bronchoscopy on 09/10/18-consistent with aspiration, secretions present. Bleeding from lesion/and/or plaque RLL orifice medial wall instilled with iced-saline lavage with cessasion of bleeding. Bronch cx neg, cytology neg -Video swallow done- Aspiration risk per d/w Speech. D/w family and patient- NO PEG tube ,accepts risk of aspiration -Bronch cultures- neg PLAN : Will continue with Augmentin BID to complete 7 day course. -Follow up Aspergillus, CMV, HSV, immunoglobulin, SPEP, Quantiferon TB Gold ordered by pulmonary (3) Postprocedural state: Patient is post bronchoscopy 09/10/2018 Post bronchoscopy he had intractable pain due to administration of Narcan in setting of chronic methadone intake. He was also hypoxic during this time. Was briefly admitted to ICU for stabilization. -Received methadone dose and pain is controlled -Was transferred back to floor the same day -Follow up bronch results as above (4) Non-sustained ventricular tachycardia: Nonsustained V. tach noted on 09/10/2018 night -Levofloxacin was discontinued due to prolonged QTC -Electrolytes stable -Echo 07/18/18- EF 65-70% reviewed - (5) CAD (coronary artery disease): Experiencing dyspnea on exertion without chest pain. -No s/s of ACS. Tro 0.036 -Continue aspirin, atenolol, simvastatin. (6) CHF (congestive heart failure): -History of right-sided CHF and moderate . -Not on diuretics. (7) Low grade fever: Reported low grade fever at home. Recent course of IV antibiotic therapy for MSSA Bacteremia x 6 weeks with iv antibiotics with no apparent source identified. Repeat blood cultures obtained- negative so far. (8) Atrial fibrillation: -Rate controlled on digoxin and atenolol. -No long-term anticoagulants due to chronic heme positive stools. (9) Hypertension: -Continue atenolol and lisinopril. (10) Pulmonary nodules: -Pulmonary nodules up to [address] chest 07/20/18. -Follow per guidelines. (11) GERD (gastroesophageal reflux disease): -Continue ranitidine. (12) CKD (chronic kidney disease), stage III: -Serum creatinine down to 1.35 -Follow. (13) Hypothyroidism: -Continue levothyroxine. (14) Anemia of chronic disease: Baseline hemoglobin runs around 9. Probably anemia of chronic disease. Possible bone marrow suppression due to recent infection. History of multiple myeloma. Intermittent heme + stools- may have chronic blood loss. Hemoglobin at time of admission was 9.0 and now stable in the range of 8 -Monitor H & H -Consider outpatient follow up with hematology recommended (15) DVT prophylaxis: -No anticoagulants because of recent & chronic heme + stools. -SCD's and TEDS not ordered because of lower extremity edema and venous stasis ulcers. -Ambulate as able. DNR/DNI confirmed. (16) Discharge planning issues: Very eager to be discharged today Home health services arrangements made -Family Medicine follow-up with Dr. Marin -PT/OT ordered. Family by bedside. Ok to discharge home Total Time Total Time Spent Total Time Spent (In Minutes): 45 minutes Discharge Plan Discharge Items Patient Disposition: Home - Home Health Services Reason For Visit: CHF EXACERBATION Discharge Diagnosis: 1. Probable aspiration pneumonia 2. Hypoxia 3. Aspiration risk Discharge Goals: Decrease discomfort Activity: Resume your previous activity Activity Comment: as tolerated prior to admission Non-emergency contact: Primary Care Provider Call non-emergency contact if: your symptoms worsen Follow-up/Referrals: Rjei Agrawal MD [Physician] - (Please call his office for appt date and time) Gilberto Valle MD, FACS [Surgeon] - (Dr Valle's office will call you for follow up in 1 week) Bienvenido Marin MD [Primary Care Provider] - (We will call you for appt date and time) Diet: Heart Healthy and Low Sodium (2gm) Addtl Provider Instructions: MEDICATION CHANGES 1. Augmentin as directed for 6 more days to complete 10 day course of antibiotics You did not quality for oxygen Recommend outpatient follow up with hematology for your anemia with prior hx of multiple myeloma Prescriptions: New amoxicillin-pot clavulanate 500-125 mg Tablet 1 tab PO BIDM 6 Days Qty: 12 RF: 0 Continued aspirin [Aspirin Low Dose] 81 mg Tablet,Delayed Release (Dr/Ec) 81 mg PO QAM RF: 0 simvastatin 40 mg tablet 40 mg PO QAM RF: 0 levothyroxine 75 mcg tablet 75 mcg PO QAM RF: 0 paroxetine HCl 30 mg tablet 30 mg PO QAM RF: 0 ranitidine HCl 150 mg Tablet 150 mg PO QAM RF: 0 digoxin 125 mcg tablet 62.5 mcg PO QAM RF: 0 lisinopril 40 mg Tablet 40 mg PO QAM RF: 0 calcitriol 0.25 mcg capsule 0.25 mcg PO 2XWK RF: 0 Artificial Tears (PF) Dropperette 1 - 2 drp OPHTHALMIC (EYE) DIRECTED PRN (Reason: Dry Eye(S)) RF: 0 potassium chloride 10 mEq tablet extended release 10 meq PO BID RF: 0 methadone 10 mg tablet 5 mg PO BID RF: 0 Changed atenolol 25 mg tablet 25 mg PO QAM 30 Days Qty: 30 RF: 0 Stand-Alone Forms: [facility] Discharge Orders: Discharge Order (Routine); Ordered 09/12/18 Ordered By: Kimber Avila Admission Data Admit Date/Time: 09/06/18 17:48 Attending Provider: Kimber Avila Admit Provider: Bereket Marquis Primary Care Provider: Bienvenido Marin Other Providers: Florentino Tripp ; Bereket Marquis ; Gilberto Ibarra ; Abeba Howard ; Emile Gaytan Service: Telemetry Medical
[2018-09-14 06:31] LABS: Creatinine Ur 47 MG/DL (20-320); Protein, Urine 24 Hour 1258 MG/24HRS. (0-149); Total Protein, Urine 74 MG/DL; Urine Protein/Creatinine Ratio 1574 (<OR=115)
[2018-09-16 14:07] LABS: Aspergillus Ag Index 0.11 (<0.50); Aspergillus Antigen, Serum Not Detected (Not Detected); Aspergillus Flavus Negative (Negative); Aspergillus Niger Negative (Negative); Immunoglobulin IgE 202 KU/L (<115); Quantiferon Mitogen-NIL 5.62 IU/ML; Quantiferon NIL 0.02 IU/ML; Quantiferon TB Gold Plus NEGATIVE (NEGATIVE); Quantiferon TB2-NIL 0.01 IU/ML
== END 2018-09-12 14:31 | disposition home health service (06) | DRG 164 ==
LOC: ED 15:17 → SUATTDRO 17:48 → 2S 17:48 → 4W 09-09 12:57 → 1E 09-10 09:11 → 2W 09-10 17:08